=== PATIENT | female | born 1955 | race Caucasian/White ===

== ENCOUNTER 2019-09-29 13:45 | Inpatient (IN) ==
[2019-09-29 14:40] LABS: Appearance Urine Clear (Clear); Bacteria Urine Automated Negative (Negative); Bilirubin Urine Negative (Negative); Blood Urine Negative (Negative); Color Urine Dark Yellow; Epithelial Cell Urine Auto >30 /lpf (0-5); Glucose Urine UA Negative (Negative); Ketones Urine Trace (Negative); Leukocyte Esterase Urine Trace (Negative); Nitrite Urine Negative (Negative); Protein Urine Negative (Negative); RBC Urine Automated 0-4 /hpf (0-4); Specific Gravity Urine 1.022 (1.000-1.030); Urobilinogen Urine Negative (Negative)
[2019-09-29 15:02] LABS: Acetaminophen < 2 ug/ml (10-30); Albumin Level 3.8 gm/dl (3.4-5.0); BUN Creatinine Ratio 13.5 (10-20); Calcium 9.4 mg/dl (8.5-10.1); Est GFR (African American) 67.7; Est GFR (Non-African American) 58.4; Potassium 4.1 mmol/L (3.5-5.1); Salicylate < 1.7 mg/dl (2.8-20)
[2019-09-29 15:05] LABS: Amphetamines+Metham, Urine Neg (Neg); Barbiturates, Urine Neg (Neg); Benzodiazepine, Urine Neg (Neg); Cocaine, Urine Neg (Neg); MDMA (Ecstacy), Urine Pos (Neg); Methadone, Urine Neg (Neg); Opiate, Urine Neg (Neg); Phencyclidine, Urine Neg (Neg)
[2019-09-29 15:13] LABS: Albumin Globulin Ratio 1.2 (0.9-2); Bilirubin,Total 0.6 mg/dl (0.2-1); Globulin 3.1 gm/dl (2.5-4.0); Thyroid Stimulating Hormone 1.69 uIu/ml (0.300-4.500); Total Protein 6.9 gm/dl (6.4-8.2)
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
[2019-09-29 16:31] LABS: Hematocrit (blood only) 37.5 % (37-47); Hemoglobin 12.8 g/dL (12.0-16.0); Lymphocytes # (auto) 0.78 K/uL (1.2-3.4); Mean Corpuscular Hemoglobin 30.5 pg (25-34); Mean Corpuscular Hgb Conc 34.1 g/dL (32-36); Mean Corpuscular Volume 89.5 fL (80-100); Mean Platelet Volume 9.9 fL (7.4-10.4); Monocytes # (auto) 0.17 K/uL (0.11-0.59); Monocytes % (auto) 6.5 %; Neutrophils # (auto) 1.65 K/uL (1.4-6.5); Neutrophils % (auto) 63.5 %; Platelet Count 177 K/uL (130-400); RDW Coefficient of Variation 12.9 % (11.5-14.5); Red Blood Count 4.19 M/uL (4.2-5.4)
[2019-09-29 19:34] VITALS: O2SAT 100
[2019-09-29] MEDS ORDERED: ALUMINUM/MAGNESIUM SUSP 30 ML UDC PO PRN (19:47)
[2019-09-29] MEDS ORDERED: BISMUTH SUBSALICYLATE PER ML OMNICELL CHARGE PO PRN (19:47)
[2019-09-29] MEDS ORDERED: ACETAMINOPHEN 325 MG TAB PO PRN (19:47)
[2019-09-29] MEDS ORDERED: MAGNESIUM HYDROXIDE SUSP 30 ML UDC PO PRN (19:47)
[2019-09-29] MEDS ORDERED: SODIUM CHLORIDE 0.65% NA SOLN 45 ML (OCEAN) PRN (19:47)
[2019-09-29] MEDS ORDERED: SENNA 8.6 MG TAB PO PRN (19:50)
[2019-09-29] MEDS: LORazepam 1 MG TAB PO SCH (21:05)
[2019-09-29] MEDS: DOCUSATE SODIUM 100 MG CAP PO SCH (21:05)
[2019-09-29] MEDS: TRAZODONE HCL 50 MG TAB PO SCH (21:06)
[2019-09-29] MEDS: LITHIUM CARBONATE 300 MG TAB PO SCH (21:06)
[2019-09-29] MEDS: PERPHENAZINE 2 MG TABLET PO SCH (21:06)
[2019-09-30] MEDS: DOCUSATE SODIUM 100 MG CAP PO SCH ×2 (09:41→20:51)
[2019-09-30] MEDS: PERPHENAZINE 2 MG TABLET PO SCH ×2 (09:41→20:47)
[2019-09-30] MEDS: LORazepam 1 MG TAB PO SCH ×3 (09:41→20:46)
[2019-09-30] MEDS: CHOLECALCIFEROL 1,000 UNITS TAB PO SCH (09:41)
[2019-09-30] MEDS: VITAMIN B COMPLEX TAB PO SCH (09:42)
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
[2019-09-30] MEDS: LITHIUM CARBONATE 300 MG TAB PO SCH (20:47)
[2019-09-30] MEDS: TRAZODONE HCL 50 MG TAB PO SCH (20:47)
[2019-10-01] MEDS: PERPHENAZINE 2 MG TABLET PO SCH ×2 (09:31→20:54)
[2019-10-01] MEDS: DOCUSATE SODIUM 100 MG CAP PO SCH ×2 (09:31→20:53)
[2019-10-01] MEDS: CHOLECALCIFEROL 1,000 UNITS TAB PO SCH (09:31)
[2019-10-01] MEDS: VITAMIN B COMPLEX TAB PO SCH (09:31)
[2019-10-01] MEDS: LORazepam 1 MG TAB PO SCH ×3 (09:32→20:53)
--- NOTE | 2019-10-01 13:47 | Psychiatric Progress Note ---
Date of Service October 01, 2019 Impression / Recommendations Impression 64-year-old female personal nursing home resident who has a history of chronic paranoid schizophrenia and presents with worsening psychosis in the context of multiple antipsychotic medication changes due to leukocytopenia. She is a limited historian and cannot describe recent medication changes, so we will need to get that information from the [facility] psych clinic. She is endorsing florid psychosis with delusions of persecution, auditory and visual hallucinations, paranoia, and fear that unknown others are trying to kill her. Since she was here last, lithium has been added, Lorazepam resumed and the dose increased, trazodone increased, and paliperidone discontinued. Green[place] is reportedly being utilized to combat atypical antipsychotic induced leukocytopenia. Patient's paranoia and delusions are ongoing, lithium will be titrated to 450 mg nightly in preparation for adjustments to antipsychotic medications/dosing. We will begin by titrating perphenazine to 16 mg twice daily, with consideration to augment with either olanzapine or paliperidone if symptoms do not improve. Inpatient treatment is medically necessary due to the severity of her psychotic symptoms and inability to function outside of the hospital as a result. (1) Chronic paranoid schizophrenia: 09/30 -continue current antipsychotic for now (perphenazine 12 mg every morning and 16 mg at bedtime) while getting information from her outpatient [employer] at the [facility] psych clinic regarding recent medication changes/side effects/symptoms. -Reportedly did well on perphenazine but had problems with ? leukocytopenia, and at some point saw a training and development professional -request those records and consider need for inpatient consult. -Continue home dose of lithium (trough level 0.4 today), Lorazepam 1 mg 3 times daily, hydroxyzine 25 mg 3 times daily, and trazodone 150 mg at bedtime. -Encourage patient to attend and participate in groups and therapy. -Coordinate care with [facility] staff and [facility] and involve them in treatment and discharge planning. 10/01 - After review of risks and benefits, patient is agreeable with titration fo perphenazine to 16mg BID - consider eventual need to return to augmenting agent (history shows favorable response to paliperidone and olanzapine - but both with concerns for leukocytopenia in the past) - Greeneville titrated to 450mg qHS - as means to combat neutropenia - see below - Awaiting training and development professional records - Encourage continued participation in group and recreational therapies (2) Leukocytopenia: 09/30 - WBC 2.6 and ANC 1.65 on admission. In 07/2019, ANC was is low at 0.85, and WBC 1.85. Get records from outpatient psychiatrist and training and development professional to clarify recent medication changes and thoughts regarding etiology. -Patient with 2 known previous episodes of leukocytopenia, thought to be caused by antipsychotic medication (Haldol and 2011 and olanzapine here in 2018). 10/01 - After review with patient's outpatient psychiatric prescriber, it appears lithium was being utilized as an adjunctive medication with thoughts it may counteract atypical antipsychotic-induced neutropenia - Several review articles found to support this theory, though most were directed toward clozapine-induced neutropenia specifically. - Basic explanation of this idea was provided to patient, who was agreeable with titration of lithium to 450mg qHS (lower dose adjustment as patient reported perceived fogginess since addition of lithium). Reference articles: - Jenyn Molina., Sunita Wolfe., Sharifa Serrano., Anmol SGood, & Barbara Contreras (2016). Continuing clozapine treatment with lithium in schizophrenic patients with neutropenia or leukopenia: brief review of literature with case reports. Therapeutic advances in psychopharmacology, 6(1), 3333. doi:10.1177/1195031900018361 - Zoey Robin., Jason Unger., Terrence Narayanan., Adam Rivera., Terrence Castrejon., Lucia Maloney., Gokristopher, N. (2009). Adjunctive use of lithium carbonate for the management of neutropenia in clozapine-treated children. Human psychopharmacology, 24(0), 896570. doi:10.1002/hup.1056 Inventory Assets Strengths: Willing for treatment, has outpatient providers Needs: Antipsychotic medication that she can tolerate, coordination with training and development professional given recent side effect issues Risk Factors Assessment Male: No : Yes Do You Have Access To A Gun?: No Health Problems: Yes Mental Health Diagnoses: Yes Substance Use Disorders: No Previous Attempt: Yes Previous Psychiatric Hospitalization: Yes Smoker: No Protective Factors Assessment Jain Beliefs: No : No Responsible for Young Children: No Employed: No Stable Relationships: No Supportive Family: No Interval History Identifying Information KIM DOWLING is a 64-year-old F who currently lives in [facility] home, has a history of schizophrenia, and was admitted on 09/29/19 19:21 on a 201 voluntary commitment for psychosis with delusions and paranoia. Chief Complaint "I'm feeling pretty good. About the same as yesterday." Review of Systems Notes Constitutional: reports feeling "foggy" Cardiovascular: denied Respiratory: denied Gastrointestinal: denied Neurological: denied Psychiatric: denies symptoms other than stated above Total of at least 10 systems reviewed, pertinent positives as above and in HPI. Sleep Information Total Hours of Sleep: 6.5 Meal Information Percent Meal Consumed - Breakfast: 100 Percent Meal Consumed - Lunch: 100 Percent Meal Consumed - Dinner: 100 Subjective Subjective Patient was seen & assessed and interval progress reviewed with nursing and social work. Staff reports the patient appeared more isolative and paranoid last evening. Contact was made with [facility], and circulation sales representative states patient is permitted to return to the facility after discharge. Patient had a meeting with her case making machine operator yesterday. Patient was seen today to assess progress since admission. She states that she is feeling "pretty good" and "about the same as yesterday, so not bad." Despite her cheerful disposition, patient admits that she is somewhat concerned today. She states that she overheard "two men talking outside my room. One said 'you are going to penitentiary for life, you better stay out of your room if you want to leave'. Just from hearing this, I assumed one of the gunmen from [facility] was brought here. Patient was asked her thoughts on how this could happen, and stated "I do not know. It has been a wild week at [facility]." Patient then shares with this provider that she is not particularly fond of her housemates, stating "she is mean and just rude. But she is a delight and so kind." During review of medication recommendations, patient inquires about this provider's interpretation of her thought process. She states, "because I am not mentally ill. I do not think it is me." She states that prior psychiatric admissions are related to "things I was getting off of the television. But I do not even watch that stuff anymore." Patient denies any safety concerns regarding discharge to [facility], and denies concerns surrounding hospitalization on this unit. She does, however, continue to endorse suspicion of multiple male patients admitted after her. Patient denies suicidal ideation, and other needs or concerns presently. Physical Exam Psychiatric Orientation: alert, oriented x 3 and cooperative (And pleasant) Apperance: appropriately dressed (Odd, but semi-formal dress. Wearing long skirt over pants.), appropriately groomed and appeared stated age Eye Contact: good eye contact Motor Behavior: steady gait and station and no abnormal motor movements Speech: normal rate/rhythm/volume of speech Affect: euthymic affect (Calm, but bright. Smiling appropriately) and mood co ngruent with affect Mood: no depressed mood ("Pretty good. About the same as yesterday.") Thought Process: + perseveration; + thought process not linear or logical Thought Content: + preoccupation (With perceived threats to safety outside of hospital), + paranoid and + delusions (Now believing a fellow patient was "one of the gunmen"); no hopelessness Suicidal Thoughts: denies suicidal thoughts and denies suicidal intent Homicidal Thoughts: denies homicidal thoughts Hallucinations: no auditory hallucinations and no visual hallucinations Cognition: attention grossly intact and language grossly intact Insight: + impaired insight Judgement: + impaired judgement Vital Signs (Past 24 Hours) Last Vital Signs Temp 36.5 C 10/01/19 06:55 Pulse 66 10/01/19 06:56 Resp 16 10/01/19 06:55 BP 121/82 10/01/19 06:56 Pulse Ox 100 09/29/19 19:33 Results & Data Current Inpatient Medications Current Inpatient Medications: Current Inpatient Medications Acetaminophen (Tylenol) 650 mg PO Q4H PRN PRN Reason: Headache or Minor Fever Stop: 10/29/19 19:46 Al Hydrox/Mg Hydrox/Simethicone (Maalox) 30 ml PO Q4H PRN PRN Reason: GI Upset Stop: 10/29/19 19:46 Bismuth Subsalicylate (Kaopectate) 15 ml PO PRN PRN PRN Reason: Loose Stool Stop: 10/29/19 19:46 Docusate Sodium (Colace) 100 mg PO BID [facility] Stop: 10/29/19 20:59 Last Admin: 10/01/19 09:31 Dose: 100 mg Documented by: Hydroxyzine HCl (Vistaril) 25 mg PO TID [facility] Stop: 10/29/19 20:59 Last Admin: 10/01/19 13:32 Dose: 25 mg Documented by: Greeneville Carbonate ([place] Carbonate) 300 mg PO [facility] Stop: 10/29/19 21:59 Last Admin: 09/30/19 20:47 Dose: 300 mg Documented by: Lorazepam (Ativan) 1 mg PO TID [facility] Stop: 10/29/19 20:59 Last Admin: 10/01/19 13:32 Dose: 1 mg Documented by: Magnesium Hydroxide (Milk Of Magnesia) 30 ml PO DAILY PRN PRN Reason: Constipation Stop: 10/29/19 19:46 Perphenazine (Trilafon) 16 mg PO [facility] Stop: 10/29/19 21:59 Last Admin: 09/30/19 20:47 Dose: 16 mg Documented by: Perphenazine (Trilafon) 12 mg PO DAILY [facility] Stop: 10/30/19 08:59 Last Admin: 10/01/19 09:31 Dose: 12 mg Documented by: Sennosides (Senokot) 8.6 mg PO BID PRN PRN Reason: Constipation Stop: 10/29/19 20:59 Sodium Chloride ([place] Nasal) 1 - 2 sprays NA PRN PRN PRN Reason: Nasal Dryness/Congestion Stop: 10/29/19 19:46 Trazodone HCl (Desyrel) 150 mg PO [facility] Stop: 10/29/19 21:59 Last Admin: 09/30/19 20:47 Dose: 150 mg Documented by: Vitamin B Complex (Vitamin B Complex) [facility] [place]: 10/30/19 08:59 Last Admin: 10/01/19 09:31 Dose: 1 tab Documented by: Vitamin D (Vitamin D3) 1,000 [facility] Stop: 10/30/19 08:59 Last Admin: 10/01/19 09:31 Dose: 1,000 units Documented by: Mental Health & Subst Abuse Tx Therapist Name of Therapist: none Air Compressor Operator Name of Air Compressor Operator: Cheri Zuniga Post Discharge Appointments Primary Care Physician Name Of Family Doctor: Dr. Gonzalez
[2019-10-01] MEDS: TRAZODONE HCL 50 MG TAB PO SCH (20:54)
[2019-10-01] MEDS: LITHIUM CARBONATE 300 MG TAB PO SCH (20:56)
[2019-10-02] MEDS: DOCUSATE SODIUM 100 MG CAP PO SCH ×2 (10:12→21:00)
[2019-10-02] MEDS: PERPHENAZINE 2 MG TABLET PO SCH ×2 (10:12→21:01)
[2019-10-02] MEDS: LORazepam 1 MG TAB PO SCH ×3 (10:12→21:00)
[2019-10-02] MEDS: VITAMIN B COMPLEX TAB PO SCH (10:13)
[2019-10-02] MEDS: CHOLECALCIFEROL 1,000 UNITS TAB PO SCH (10:13)
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
[2019-10-02] MEDS: TRAZODONE HCL 50 MG TAB PO SCH (21:01)
[2019-10-02] MEDS: LITHIUM CARBONATE 300 MG TAB PO SCH (21:02)
[2019-10-03 08:19] LABS: Hematocrit (blood only) 34.7 % (37-47); Hemoglobin 11.8 g/dL (12.0-16.0); Mean Corpuscular Hemoglobin 30.3 pg (25-34); Mean Corpuscular Volume 89.2 fL (80-100); Mean Platelet Volume 8.9 fL (7.4-10.4); Platelet Count 146 K/uL (130-400); RDW Coefficient of Variation 12.7 % (11.5-14.5); RDW Standard Deviation 41.1 fL (36.4-46.3); Red Blood Count 3.89 M/uL (4.2-5.4); White Blood Count 1.97 K/uL (4.8-10.8)
[2019-10-03 08:41] LABS: Lymphocytes # (auto) 0.98 K/uL (1.2-3.4); Lymphocytes % (auto) 49.7 %; Monocytes # (auto) 0.17 K/uL (0.11-0.59); Monocytes % (auto) 8.6 %; Neutrophils # (auto) 0.82 K/uL (1.4-6.5); Neutrophils % (auto) 41.7 %
[2019-10-03] MEDS: LORazepam 1 MG TAB PO SCH ×3 (09:13→21:29)
[2019-10-03] MEDS: PERPHENAZINE 2 MG TABLET PO SCH ×2 (09:13→21:29)
[2019-10-03] MEDS: CHOLECALCIFEROL 1,000 UNITS TAB PO SCH (09:14)
[2019-10-03] MEDS: VITAMIN B COMPLEX TAB PO SCH (09:14)
[2019-10-03] MEDS: DOCUSATE SODIUM 100 MG CAP PO SCH ×2 (09:14→21:29)
--- NOTE | 2019-10-03 12:15 | Psychiatric Progress Note ---
Date of Service October 03, 2019 Impression / Recommendations Impression 64-year-old female personal [place] [facility] resident who has a history of chronic paranoid schizophrenia and presents with worsening psychosis in the context of multiple antipsychotic medication changes due to leukocytopenia. (1) Chronic paranoid schizophrenia: 09/30 -continue current antipsychotic for now (perphenazine 12 mg every morning and 16 mg at bedtime) while getting information from her outpatient SURVEY ENGINEER at the [facility] psych clinic regarding recent medication changes/side effects/symptoms. -Reportedly did well on perphenazine but had problems with ? leukocytopenia, and at some point saw a movie actor -request those records and consider need for inpatient consult. -Continue home dose of lithium (trough level 0.4 today), Lorazepam 1 mg 3 times daily, hydroxyzine 25 mg 3 times daily, and trazodone 150 mg at bedtime. -Encourage patient to attend and participate in groups and therapy. -Coordinate care with [facility] staff and M and involve them in treatment and discharge planning. 10/01 - After review of risks and benefits, patient is agreeable with titration fo perphenazine to 16mg BID - consider eventual need to return to augmenting agent (history shows favorable response to paliperidone and olanzapine - but both with concerns for leukocytopenia in the past) - [place] titrated to 450mg qHS - as means to combat neutropenia - see below - Awaiting movie actor records - Encourage continued participation in group and recreational therapies 10/02 -The patient continues to harbor poorly systematized delusional beliefs, primarily of paranoid content. For example, today she tells me that we are part of a "secret" world war that we dare not discussed. She continues to believe that her her residential facility ([facility]) may be trying to "put one over on [her]" and she is not sure that it is a safe place to live. She goes through a list of places where she has lived recently and identifies each of them as being a place where she is disinclined to feel safe. -We discussed what "paranoid" means and I tried to help her understand that it is likely that she will periodically have feelings of not being safe in various locations and that she it is not reasonable for her to expect to change community housing based solely on a sense that she is not safe. The patient said that she understood this and tends to agree. -Patient appears to be tolerating lithium carbonate 450 mg at bedtime. We will recheck her lithium level and her CBC with differential in the morning. Patient's most recent lithium level was 0.4. -Because of the leukopenia we are disinclined to rechallenge the patient with an atypical antipsychotic medication at the present time. However, the plan is to eventually restart either olanzapine or Invega, as indicated by laboratory data and her response to current treatment. -Patient notes that she has improved to the degree that her mood is "good" and she has not experienced any perceptual disturbances ("voices" and "visions") since arriving on the behavioral health unit. -The plan is to continue perphenazine 16 mg at bedtime, in combination with lithium carbonate as above. Material risks and anticipated benefits of both medications were reviewed with the patient today and she indicated understanding. 10/03 lithium level 0.6, drop in absolute neutrophil count since last draw but lower previously. (2) Leukocytopenia: 09/30 - WBC 2.6 and ANC 1.65 on admission. In 07/2019, ANC was is low at 0.85, and WBC 1.85. Get records from outpatient psychiatrist and movie actor to clarify recent medication changes and thoughts regarding etiology. -Patient with 2 known previous episodes of leukocytopenia, thought to be caused by antipsychotic medication (Haldol and 2011 and olanzapine here in 2018). 10/01 - After review with patient's outpatient psychiatric prescriber, it appears lithium was being utilized as an adjunctive medication with thoughts it may c ounteract atypical antipsychotic-induced neutropenia - Several review articles found to support this theory, though most were directed toward clozapine-induced neutropenia specifically. - Basic explanation of this idea was provided to patient, who was agreeable with titration of lithium to 450mg qHS (lower dose adjustment as patient reported perceived fogginess since addition of lithium). 10/02 -We will recheck the patient's CBC with differential in the morning. No current evidence of any infectious process, despite her leukopenia. Reference articles: - Yodit Molina, Sunita Wolfe., Zach S., Anmol S., & Barbara Contreras (2016). Continuing clozapine treatment with lithium in schizophrenic patients with neutropenia or leukopenia: brief review of literature with case reports. Therapeutic advances in psychopharmacology, 6(1), 7507. doi:10.1177/[id number] - Kimberly Robin, Jason Unger., Terrence Narayanan., Adam Rivera., Terrence Castrejon., Lucia Maloney., Erick Castillo (2009). Adjunctive use of lithium carbonate for the management of neutropenia in clozapine-treated children. Human psychopharmacology, 24(6), 450794. doi:10.1002/hup.1056 Inventory Assets Strengths: Willing for treatment, has outpatient providers Needs: Antipsychotic medication that she can tolerate, coordination with movie actor given recent side effect issues Risk Factors Assessment Male: No : Yes Do You Have Access To A Gun?: No Health Problems: Yes Mental Health Diagnoses: Yes Substance Use Disorders: No Previous Attempt: Yes Previous Psychiatric Hospitalization: Yes Smoker: No Protective Factors Assessment Buddhist Beliefs: No : No Responsible for Young Children: No Employed: No Stable Relationships: No Supportive Family: No Interval History Identifying Information KIM DOWLING is a 64-year-old F who currently lives in [facility], has a history of schizophrenia, and was admitted on 09/29/19 19:21 on a 201 voluntary commitment for psychosis with delusions and paranoia. Chief Complaint "I'm OK". Review of Systems Sleep Information Total Hours of Sleep: 8.75 Sleep Comments: awake at around midnight-came out to the day area after being awakened by a sound. she thought she heard something like a gunshot but it was a sound her roommate made getting ready for bed. ate some crackeres then back to bed/sleep. Meal Information Percent Meal Consumed - Breakfast: 100 Percent Meal Consumed - Lunch: 100 Percent Meal Consumed - Dinner: 100 Subjective Subjective Patient was seen & assessed and interval progress reviewed with nursing and social work. reviewed am labs with patient, she is aware of issues with fluctuating neutrophil count. Tolerating lithium. Remains paranoid here, mainly about other patients from [facility] being at the hospital. Physical Exam Psychiatric Orientation: alert Apperance: appropriately groomed Eye Contact: + fair eye contact Motor Behavior: no abnormal motor movements Speech: normal rate/rhythm/volume of speech Affect: + elated affect Mood: + dysphoric mood Thought Process: + concrete thought process Thought Content: + preoccupation and + delusions Suicidal Thoughts: denies suicidal thoughts Homicidal Thoughts: denies homicidal thoughts Hallucinations: no auditory hallucinations and no visual hallucinations Cognition: language grossly intact; + attention not intact Estimated Intelligence: consistent with education level Insight: + impaired insight Judgement: + impaired judgement Vital Signs (Past 24 Hours) Last Vital Signs Temp 36.7 C 10/03/19 06:32 Pulse 61 10/03/19 06:33 Resp 18 10/03/19 06:32 BP 91/59 L 10/03/19 06:33 Pulse Ox 100 09/29/19 19:33 Results & Data Laboratory Results Laboratory Results - last 24 hr 10/03/19 10/03/19 08:08 08:08 WBC 1.97 L RBC 3.89 L Hgb 11.8 L Hct 34.7 L MCV 89.2 MCH 30.3 MCHC 34.0 RDW Std Deviation 41.1 RDW Coeff of Nayeli 12.7 Plt Count 146 MPV 8.9 Immature Gran % (Auto) 0.0 Neut % (Auto) 41.7 Lymph % (Auto) 49.7 [place] % (Auto) 8.6 Eos % (Auto) 0.0 Baso % (Auto) 0.0 Immature Gran # (Auto) 0.00 Neut # (Auto) 0.82 L* Lymph # (Auto) 0.98 L [place] # (Auto) 0.17 Eos # (Auto) 0.00 Baso # (Auto) 0.00 [place] 0.6 Current Inpatient Medications Current Inpatient Medications: Current Inpatient Medications Acetaminophen (Tylenol) 650 mg PO Q4H PRN PRN Reason: Headache or Minor Fever Stop: 10/29/19 19:46 Al Hydrox/Mg Hydrox/Simethicone (Maalox) 30 ml PO Q4H PRN PRN Reason: GI Upset Stop: 10/29/19 19:46 Bismuth Subsalicylate (Kaopectate) 15 ml PO PRN PRN PRN Reason: Loose Stool Stop: 10/29/19 19:46 Docusate Sodium (Colace) 100 mg PO BID [facility] Stop: 10/29/19 20:59 Last Admin: 10/03/19 09:14 Dose: 100 mg Documented by: Hydroxyzine HCl (Vistaril) 25 mg PO TID [facility] Stop: 10/29/19 20:59 Last Admin: 10/03/19 09:14 Dose: 25 mg Documented by: [place] Carbonate ([place] Carbonate) 450 mg PO HS [facility] Stop: 10/31/19 21:59 Last Admin: 10/02/19 21:02 Dose: 450 mg Documented by: Lorazepam (Ativan) 1 mg PO TID [place] Stop: 10/29/19 20:59 Last Admin: 10/03/19 09:13 Dose: 1 mg Documented by: Magnesium Hydroxide (Milk Of Magnesia) 30 ml PO DAILY PRN PRN Reason: Constipation Stop: 10/29/19 19:46 Perphenazine (Trilafon) 16 mg PO BID [place] Stop: 10/31/19 20:59 Last Admin: 10/03/19 09:13 Dose: 16 mg Documented by: Sennosides (Senokot) 8.6 mg PO BID PRN PRN Reason: Constipation Stop: 10/29/19 20:59 Last Admin: 10/01/19 18:15 Dose: 8.6 mg Documented by: Sodium Chloride ([place] Nasal) 1 - 2 sprays NA PRN PRN PRN Reason: Nasal Dryness/Congestion Stop: 10/29/19 19:46 Trazodone HCl (Desyrel) 150 mg PO HS [facility] Stop: 10/29/19 21:59 Last Admin: 10/02/19 21:01 Dose: 150 mg Documented by: Vitamin B Complex (Vitamin B Complex) 1 tab PO QAM [facility] Stop: 10/30/19 08:59 Last Admin: 10/03/19 09:14 Dose: 1 tab Documented by: Vitamin D (Vitamin D3) 1,000 units PO QAM [facility] Stop: 10/30/19 08:59 Last Admin: 10/03/19 09:14 Dose: 1,000 units Documented by: Mental Health & Subst Abuse Tx Psychiatrist Name of Psychiatrist: [facility] - Dr. Carmen Waters Psychiatrist's Psychiatric Appointment Comment: [address], [address], [place] [address] Therapist Name of Therapist: none Therapist Release of Information: Signed Sous Chef Name of Sous Chef: COURTNEY Zuniga Phone Number for Sous Chef: [phone] Case Management Appointment Comment: [address] [facility], [address], [place] Post Discharge Appointments Primary Care Physician Name Of Family Doctor: Sarah Drummond Primary Care Provider Appointment Comment: [address] [facility], [place] [address] Home Health Services Home Health Agency: [facility] Phone Number of Home Services Agency: [phone] Contact Information Discharge Discharge Address: [address] [place], [place] [address] [address] Contact Information Comment: [facility]
[2019-10-03] MEDS: TRAZODONE HCL 50 MG TAB PO SCH (21:29)
[2019-10-03] MEDS: LITHIUM CARBONATE 300 MG TAB PO SCH (21:30)
[2019-10-04 06:27] LABS: Hematocrit (blood only) 35.2 % (37-47); Hemoglobin 11.8 g/dL (12.0-16.0); Mean Corpuscular Hemoglobin 29.7 pg (25-34); Mean Corpuscular Hgb Conc 33.5 g/dL (32-36); Mean Corpuscular Volume 88.7 fL (80-100); Mean Platelet Volume 9.7 fL (7.4-10.4); Platelet Count 146 K/uL (130-400); RDW Coefficient of Variation 12.9 % (11.5-14.5); Red Blood Count 3.97 M/uL (4.2-5.4); White Blood Count 2.08 K/uL (4.8-10.8)
[2019-10-04 07:27] LABS: Lymphocytes % (auto) 52.9 %; Monocytes % (auto) 9.6 %; Neutrophils # (auto) 0.78 K/uL (1.4-6.5); Neutrophils % (auto) 37.5 %
[2019-10-04] MEDS: CHOLECALCIFEROL 1,000 UNITS TAB PO SCH (09:20)
[2019-10-04] MEDS: DOCUSATE SODIUM 100 MG CAP PO SCH ×2 (09:20→21:09)
[2019-10-04] MEDS: VITAMIN B COMPLEX TAB PO SCH (09:20)
[2019-10-04] MEDS: LORazepam 1 MG TAB PO SCH ×3 (09:20→21:09)
--- NOTE | 2019-10-04 12:56 | Psychiatric Progress Note ---
Date of Service October 04, 2019 Impression / Recommendations Impression 64-year-old female personal long-term resident who has a history of chronic paranoid schizophrenia and presents with worsening psychosis in the context of multiple antipsychotic medication changes due to leukocytopenia. (1) Chronic paranoid schizophrenia: 09/30 -continue current antipsychotic for now (perphenazine 12 mg every morning and 16 mg at bedtime) while getting information from her outpatient MANAGER FAST FOOD at the [facility] psych clinic regarding recent medication changes/side effects/symptoms. -Reportedly did well on perphenazine but had problems with ? leukocytopenia, and at some point saw a sprinkler worker -request those records and consider need for inpatient consult. -Continue home dose of lithium (trough level 0.4 today), Lorazepam 1 mg 3 times daily, hydroxyzine 25 mg 3 times daily, and trazodone 150 mg at bedtime. -Encourage patient to attend and participate in groups and therapy. -Coordinate care with [facility] staff and M and involve them in treatment and discharge planning. 10/01 - After review of risks and benefits, patient is agreeable with titration fo perphenazine to 16mg BID - consider eventual need to return to augmenting agent (history shows favorable response to paliperidone and olanzapine - but both with concerns for leukocytopenia in the past) - [place] titrated to 450mg qHS - as means to combat neutropenia - see below - Awaiting sprinkler worker records - Encourage continued participation in group and recreational therapies 10/02 -The patient continues to harbor poorly systematized delusional beliefs, primarily of paranoid content. For example, today she tells me that we are part of a "secret" world war that we dare not discussed. She continues to believe that her her residential facility ([facility]) may be trying to "put one over on [her]" and she is not sure that it is a safe place to live. She goes through a list of places where she has lived recently and identifies each of them as being a place where she is disinclined to feel safe. -We discussed what "paranoid" means and I tried to help her understand that it is likely that she will periodically have feelings of not being safe in various locations and that she it is not reasonable for her to expect to change community housing based solely on a sense that she is not safe. The patient said that she understood this and tends to agree. -Patient appears to be tolerating lithium carbonate 450 mg at bedtime. We will recheck her lithium level and her CBC with differential in the morning. Patient's most recent lithium level was 0.4. -Because of the leukopenia we are disinclined to rechallenge the patient with an atypical antipsychotic medication at the present time. However, the plan is to eventually restart either olanzapine or Invega, as indicated by laboratory data and her response to current treatment. -Patient notes that she has improved to the degree that her mood is "good" and she has not experienced any perceptual disturbances ("voices" and "visions") since arriving on the behavioral health unit. -The plan is to continue perphenazine 16 mg at bedtime, in combination with lithium carbonate as above. Material risks and anticipated benefits of both medications were reviewed with the patient today and she indicated understanding. 10/03 lithium level 0.6, drop in absolute neutrophil count since last draw but lower previously. (2) Leukocytopenia: 09/30 - WBC 2.6 and ANC 1.65 on admission. In 07/2019, ANC was is low at 0.85, and WBC 1.85. Get records from outpatient psychiatrist and sprinkler worker to clarify recent medication changes and thoughts regarding etiology. -Patient with 2 known previous episodes of leukocytopenia, thought to be caused by antipsychotic medication (Haldol and 2011 and olanzapine here in 2018). 10/01 - After review with patient's outpatient psychiatric prescriber, it appears lithium was being utilized as an adjunctive medication with thoughts it may c ounteract atypical antipsychotic-induced neutropenia - Several review articles found to support this theory, though most were directed toward clozapine-induced neutropenia specifically. - Basic explanation of this idea was provided to patient, who was agreeable with titration of lithium to 450mg qHS (lower dose adjustment as patient reported perceived fogginess since addition of lithium). 10/02 -We will recheck the patient's CBC with differential in the morning. No current evidence of any infectious process, despite her leukopenia. 10/04 --CBC yesterday and today are both similar and consistent with lab draws in August. Chronic issue, previously attributed to paliperidone but clearly not resolving on trilafon. Trilafon packing labelling states should be held <1000 but she is already quite decompensated and not clear alternative. Will ask primary attending for second opinion, no records from outpatient hematology available today. Reference articles: - Yodit Molina, Sunita Wolfe., Tulio Serrano, Tulio Corea, & Barbara Contreras (2016). Continuing clozapine treatment with lithium in schizophrenic patients with neutropenia or leukopenia: brief review of literature with case reports. Therapeutic advances in psychopharmacology, 6(1), 5949. doi:10.1177/[id number] - Kimberly Robin, Olga Unger, Tiffany Narayanan, Scarlett Rivera, Tiffany Castrejon, Lucia Maloney., Noemi Castillo. (2009). Adjunctive use of lithium carbonate for the management of neutropenia in clozapine-treated children. Human psychopharmacology, 24(5), 328889. doi:10.1002/hup.1056 Inventory Assets Strengths: Willing for treatment, has outpatient providers Needs: Antipsychotic medication that she can tolerate, coordination with sprinkler worker given recent side effect issues Risk Factors Assessment Male: No : Yes Do You Have Access To A Gun?: No Health Problems: Yes Mental Health Diagnoses: Yes Substance Use Disorders: No Previous Attempt: Yes Previous Psychiatric Hospitalization: Yes Smoker: No Protective Factors Assessment Episcopalian Beliefs: No : No Responsible for Young Children: No Employed: No Stable Relationships: No Supportive Family: No Interval History Identifying Information KIM DOWLING is a 64-year-old F who currently lives in [facility], has a history of schizophrenia, and was admitted on 09/29/19 19:21 on a 201 voluntary commitment for psychosis with delusions and paranoia. Chief Complaint some increase in paranoia Review of Systems Sleep Information Total Hours of Sleep: 6 Sleep Comments: awake at around midnight-came out to the day area after being aw akened by a sound. she thought she heard something like a gunshot but it was a sound her roommate made getting ready for bed. ate some crackeres then back to bed/sleep. Meal Information Percent Meal Consumed - Breakfast: 100 Percent Meal Consumed - Lunch: 100 Percent Meal Consumed - Dinner: 100 Subjective Subjective remains superficially bright in interactions, no significant thought blocking but expressed concerns last night that her days are number, worried that someone is going to blast her head off and that [employer] students are rioting because they don't like her. She was placed on MNPR due to critically low neutrophils but staff confirmed with admin that no additional precautions necessary as asymptomatic. Confirmed with patient no mouth sores. She states today that she doesn't remember any of that "stuff" form last night. Physical Exam Psychiatric A+Ox3, euthymic affect Apperance: + disheveled Eye Contact: + fair eye contact Motor Behavior: no abnormal motor movements Speech: no pressured speech Mood: + anxious mood Thought Process: + concrete thought process Thought Content: + delusions Suicidal Thoughts: denies suicidal thoughts Homicidal Thoughts: denies homicidal thoughts Hallucinations: no auditory hallucinations and no visual hallucinations Cognition: language grossly intact Estimated Intelligence: consistent with education level Insight: + limited insight Judgement: + limited judgement Vital Signs (Past 24 Hours) Last Vital Signs Temp 36.4 C L 10/04/19 06:40 Pulse 57 L 10/04/19 06:41 Resp 18 10/04/19 06:40 BP 114/69 10/04/19 06:41 Pulse Ox 100 09/29/19 19:33 Results & Data Laboratory Results Laboratory Results - last 24 hr 10/04/19 06:03 WBC 2.08 L RBC 3.97 L Hgb 11.8 L Hct 35.2 L MCV 88.7 MCH 29.7 MCHC 33.5 RDW Std Deviation 42.0 RDW Coeff of [place]ayeli 12.9 Plt Count 146 MPV 9.7 Immature Gran % (Auto) 0.0 Neut % (Auto) 37.5 Lymph % (Auto) 52.9 [place] % (Auto) 9.6 Eos % (Auto) 0.0 Baso % (Auto) 0.0 Immature Gran # (Auto) 0.00 Neut # (Auto) 0.78 L* Lymph # (Auto) 1.10 L [place] # (Auto) 0.20 Eos # (Auto) 0.00 Baso # (Auto) 0.00 Current Inpatient Medications Current Inpatient Medications: Current Inpatient Medications Acetaminophen (Tylenol) 650 mg PO Q4H PRN PRN Reason: Headache or Minor Fever Stop: 10/29/19 19:46 Al Hydrox/Mg Hydrox/Simethicone (Maalox) 30 ml PO Q4H PRN PRN Reason: GI Upset Stop: 10/29/19 19:46 Bismuth Subsalicylate (Kaopectate) 15 ml PO PRN PRN PRN Reason: Loose Stool Stop: 10/29/19 19:46 Docusate Sodium (Colace) 100 mg PO BID [facility] Stop: 10/29/19 20:59 Last Admin: 10/04/19 09:20 Dose: 100 mg Documented by: Hydroxyzine HCl (Vistaril) 25 mg PO TID [facility] Stop: 10/29/19 20:59 Last Admin: 10/04/19 09:20 Dose: 25 mg Documented by: [place] Carbonate ([place] Carbonate) 450 mg PO [facility] Stop: 10/31/19 21:59 Last Admin: 10/03/19 21:30 Dose: 450 mg Documented by: Lorazepam (Ativan) 1 mg PO TID [facility] Stop: 10/29/19 20:59 Last Admin: 10/04/19 09:20 Dose: 1 mg Documented by: Magnesium Hydroxide (Milk Of Magnesia) 30 ml PO DAILY PRN PRN Reason: Constipation Stop: 10/29/19 19:46 Perphenazine (Trilafon) 16 mg PO BID [facility] Stop: 10/31/19 20:59 Last Admin: 10/03/19 21:29 Dose: 16 mg Documented by: Sennosides (Senokot) 8.6 mg PO BID PRN PRN Reason: Constipation Stop: 10/29/19 20:59 Last Admin: 10/01/19 18:15 Dose: 8.6 mg Documented by: Sodium Chloride ([place] Nasal) 1 - 2 sprays NA PRN PRN PRN Reason: Nasal Dryness/Congestion Stop: 10/29/19 19:46 Trazodone HCl (Desyrel) 150 mg PO [facility] Stop: 10/29/19 21:59 Last Admin: 10/03/19 21:29 Dose: 150 mg Documented by: Vitamin B Complex (Vitamin B Complex) [facility] Stop: 10/30/19 08:59 Last Admin: 10/04/19 09:20 Dose: 1 tab Documented by: Vitamin D (Vitamin D3) 1,000 units PO QAM [facility] Stop: 10/30/19 08:59 Last Admin: 10/04/19 09:20 Dose: 1,000 units Documented by: Mental Health & Subst Abuse Tx Psychiatrist Name of Psychiatrist: [facility] - Dr. Carmen Waters Psychiatrist's Psychiatric Appointment Comment: [address], [address], [place] [address] Therapist Name of Therapist: none Therapist Release of Information: Signed Community Health Advocate Name of Community Health Advocate: COURTNEY Zuniga Phone Number for Community Health Advocate: [phone] Case Management Appointment Comment: [address], [address], [place] Post Discharge Appointments Primary Care Physician Name Of Family Doctor: Sarah - Dr. Drummond Primary Care Provider Appointment Comment: [address], [place] [address] Home Health Services Home Health Agency: [facility] Phone Number of Home Services Agency: [phone] Contact Information Discharge Discharge Address: [address] [facility] [place] [address] Contact Information Comment: [facility]
[2019-10-04] MEDS: TRAZODONE HCL 50 MG TAB PO SCH (21:10)
[2019-10-04] MEDS: LITHIUM CARBONATE 300 MG TAB PO SCH (21:10)
[2019-10-05] MEDS: CHOLECALCIFEROL 1,000 UNITS TAB PO SCH (08:49)
[2019-10-05] MEDS: VITAMIN B COMPLEX TAB PO SCH (08:49)
[2019-10-05] MEDS: DOCUSATE SODIUM 100 MG CAP PO SCH ×2 (08:49→20:45)
[2019-10-05] MEDS: LORazepam 1 MG TAB PO SCH ×3 (08:50→20:45)
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
[2019-10-05] MEDS: LITHIUM CARBONATE 300 MG TAB PO SCH (20:46)
[2019-10-05] MEDS: TRAZODONE HCL 50 MG TAB PO SCH (20:46)
[2019-10-06] MEDS: DOCUSATE SODIUM 100 MG CAP PO SCH ×2 (08:57→20:42)
[2019-10-06] MEDS: VITAMIN B COMPLEX TAB PO SCH (08:57)
[2019-10-06] MEDS: LORazepam 1 MG TAB PO SCH ×3 (08:57→20:43)
[2019-10-06] MEDS: CHOLECALCIFEROL 1,000 UNITS TAB PO SCH (08:57)
--- NOTE | 2019-10-06 09:25 | Oncology Consultation ---
Date of Consultation October 06, 2019 Assessment & Plan (1) Leukocytopenia: She has been chronically leukopenic, much of which seems to be attributable to her anti-psychotic therapy. She has been on several different agents and they all seem to cause this issue, suggesting a class effect. I think a workup is reasonable for other potential causes. I would check serologies for HBV, HCV, HIV, and EBV. I also would check an NASIR to screen for autoimmune neutropenia. She has diabetes and could be at risk for fatty liver disease, so I also would check an ultrasound of her liver and spleen. If no other cause can be determined, we will need to have a conversation regarding the risks and benefits of her antipsychotic therapy and options to support her counts. She tells me she has breast cancer, but her account is difficult to follow. I asked her nurse to obtain records of mammograms from [facility]. Present on Admission?: Yes History of Present Illness Reason for Consultation: Neutropenia Attending Physician: Tracy Avilez MD History of Present Illness Ms. Pfeiffer is a 64 year old woman with a history of diabetes and paranoid schizophrenia. By review of her records and discussion with her nurse, she develops severe symptoms of her disease off of antipsychotic therapy. She has had issues with leukocytopenia with antipsychotics, including Haldol in 2011 and Zyprexa in 2018. She is currently taking perphenazine. She was admitted with exacerbation of her psychotic symptoms. Since last Fall, her total WBC count has ranged from 2-3.3K with an ANC of 0.7-2.1. Her absolute lymphocyte count also runs on the low side and is often below normal. This abnormality dates back even further, with low ALCs dating as far back as 1997 based on records. She denied any infectious symptoms today. She denied any mouth ulcers or infections. She denied any cough, shortness of breath, dysuria, or diarrhea. She did report some constipation. She also told me she believes she has breast cancer and has had multiple mammograms at [facility]. Her account of this was difficult to follow, but she told me she had lymph nodes bilaterally that may or may not be enlarging. She denied any bleeding from either breast but says she has pain at different sites in both breasts. Allergies Allergy/AdvReac Type Severity Reaction Status Date / Time No Known Allergies Allergy Verified 09/29/19 16:02 Home Medications Home Medications Medication Instructions Recorded Confirmed Type acetaminophen [Tylenol] 650 mg PO Q6 PRN 12/26/18 09/29/19 History cholecalciferol (vitamin D3) 1,000 unit PO QAM 12/26/18 09/29/19 History [Vitamin D3] dextromethorphan-guaifenesin 1 tab PO Q12H PRN 12/26/18 09/29/19 History [Mucinex DM] docusate sodium 100 mg PO BID 12/26/18 09/29/19 History perphenazine 12 mg PO QAM 12/26/18 09/29/19 History perphenazine 16 mg PO HS 12/26/18 09/29/19 History sennosides [senna] 8.6 mg PO BID PRN 12/26/18 09/29/19 History trazodone 150 mg PO HS 12/26/18 09/29/19 History vitamin B complex 1 tab PO QAM 12/26/18 09/29/19 History lorazepam 1 mg PO TID 03/19/19 09/29/19 History hydroxyzine pamoate 25 mg PO TID 09/29/19 09/29/19 History lithium carbonate 300 mg PO QPM 09/29/19 09/29/19 History calcium carbonate-vitamin D3 600 cap PO DAILY 09/30/19 09/30/19 History [Calcium 600 with Vitamin D3] Patient History Medical History Chronic paranoid schizophrenia (Acute 05/21/11) Diabetes Family History Other Family history non-contributory Social History Preferred Language: Kyrgyz Communication Ability: Effective Visual Impairment: No Limitations Contract Recruiter Required: No Beliefs That Will Affect Care: None marital status: Single Current Living Situation: Personal Care Facility current occupational status: disabled Feels Safe at Home: No Smoking Status: Never smoker Review of Systems Constitutional: + weight loss (intentional 70 lb weight loss over the last year or so); no fever Ear, Nose, Mouth, Throat: no bleeding gums and no sore throat Respiratory: no cough and no dyspnea Cardiovascular: no chest pain Gastrointestinal: + constipation; no nausea and no diarrhea/loose stools Genitourinary: no dysuria Musculoskeletal: She described various joint pains, including her back and knees bilaterally, that are stable Integumentary: no rash Neurologic: no headache(s) Hematologic / Lymphatic: no lymphadenopathy and no night sweats Physical Exam Constitutional: well nourished and comfortable; no acute distress ENMT: external ear and nose normal, oropharynx normal Respiratory: normal respiratory effort, lungs clear to auscultation Cardiovascular: RRR, no murmur, no edema Gastrointestinal (Abdomen): Inspection/Auscultation: normal bowel sounds; abdomen not distended Percussion/Palpation: abdomen soft; abdomen nontender Musculoskeletal: Extremities: extremities normal to inspection Lymphatic: no cervical or axillary lymphadenopathy Results & Data Vital Signs (Past 12 Hours) Vital Signs Temp Pulse Resp BP 10/06/19 06:36 46 L 162/89 H 10/06/19 06:35 36.7 C 48 L 18 151/78 H Laboratory Results I reviewed her labs, which are summarized in the HPI
--- NOTE | 2019-10-06 13:10 | Psychiatric Progress Note ---
Date of Service October 06, 2019 Impression / Recommendations Impression 64-year-old female personal custodial resident who has a history of chronic paranoid schizophrenia and presents with worsening psychosis in the context of multiple antipsychotic medication changes due to leukocytopenia. Continued inpatient psychiatric hospitalization is medically necessary, as patient is currently off antipsychotic medications due to concern for leukocytopenia. This will require further evaluation and ideally restart of an antipsychotic agent. Until that time, patient remains at acute risk of harm to self or others due to persistent delusional beliefs causing her to feel unsafe and paranoia. (1) Chronic paranoid schizophrenia: 09/30 -continue current antipsychotic for now (perphenazine 12 mg every morning and 16 mg at bedtime) while getting information from her outpatient [employer] [facility] at the [facility] psych clinic regarding recent medication changes/side effects/symptoms. -Reportedly did well on perphenazine but had problems with ? leukocytopenia, and at some point saw a golf cart maker -request those records and consider need for inpatient consult. -Continue home dose of lithium (trough level 0.4 today), Lorazepam 1 mg 3 times daily, hydroxyzine 25 mg 3 times daily, and trazodone 150 mg at bedtime. -Encourage patient to attend and participate in groups and therapy. -Coordinate care with [facility] staff and [facility] and involve them in treatment and discharge planning. 10/01 - After review of risks and benefits, patient is agreeable with titration fo perphenazine to 16mg BID - consider eventual need to return to augmenting agent (history shows favorable response to paliperidone and olanzapine - but both with concerns for leukocytopenia in the past) - [place] titrated to 450mg qHS - as means to combat neutropenia - see below - Awaiting golf cart maker records - Encourage continued participation in group and recreational therapies 10/02 -The patient continues to harbor poorly systematized delusional beliefs, primarily of paranoid content. For example, today she tells me that we are part of a "secret" world war that we dare not discussed. She continues to believe that her her residential facility ([facility]) may be trying to "put one over on [her]" and she is not sure that it is a safe place to live. She goes through a list of places where she has lived recently and identifies each of them as being a place where she is disinclined to feel safe. -We discussed what "paranoid" means and I tried to help her understand that it is likely that she will periodically have feelings of not being safe in various locations and that she it is not reasonable for her to expect to change community housing based solely on a sense that she is not safe. The patient said that she understood this and tends to agree. -Patient appears to be tolerating lithium carbonate 450 mg at bedtime. We will recheck her lithium level and her CBC with differential in the morning. Patient's most recent lithium level was 0.4. -Because of the leukopenia we are disinclined to rechallenge the patient with an atypical antipsychotic medication at the present time. However, the plan is to eventually restart either olanzapine or Invega, as indicated by laboratory data and her response to current treatment. -Patient notes that she has improved to the degree that her mood is "good" and she has not experienced any perceptual disturbances ("voices" and "visions") since arriving on the behavioral health unit. -The plan is to continue perphenazine 16 mg at bedtime, in combination with lithium carbonate as above. Material risks and anticipated benefits of both medications were reviewed with the patient today and she indicated understanding. 10/03 lithium level 0.6, drop in absolute neutrophil count since last draw but lower previously. 10/05/19 feel need to continue antipsychotic as she is at risk for severe decompensation, will continue lithium given references provided below by Dr Thompson, and consult hematology for discussion and recommendations 10/06 - Continue to hold Trilafon at this time, though it is desire to resume an antipsychotic agent to prevent decompensation as above - Appreciate hematology recommendations; attempts made to review [id number] about re-start of Trilafon versus initiation of an alternative agent - unable to make connection via phone today - continue lithium as above, consider if further titration would be benficial (2) Leukocytopenia: 09/30 - WBC 2.6 and ANC 1.65 on admission. In 07/2019, ANC was is low at 0.85, and WBC 1.85. Get records from outpatient psychiatrist and golf cart maker to clarify recent medication changes and thoughts regarding etiology. -Patient with 2 known previous episodes of leukocytopenia, thought to be caused by antipsychotic medication (Haldol and 2011 and olanzapine here in 2018). 10/01 - After review with patient's outpatient psychiatric prescriber, it appears lithium was being utilized as an adjunctive medication with thoughts it may counteract atypical antipsychotic-induced neutropenia - Several review articles found to support this theory, though most were directed toward clozapine-induced neutropenia specifically. - Basic explanation of this idea was provided to patient, who was agreeable with titration of lithium to 450mg qHS (lower dose adjustment as patient reported perceived fogginess since addition of lithium). 10/02 -We will recheck the patient's CBC with differential in the morning. No current evidence of any infectious process, despite her leukopenia. 10/04 --CBC yesterday and today are both similar and consistent with lab draws in August. Chronic issue, previously attributed to paliperidone but clearly not resolving on trilafon. Trilafon packing labelling states should be held <1000 but she is already quite decompensated and not clear alternative. Will ask primary attending for second opinion, no records from outpatient hematology available today. Reference articles: - Jenny Molina., Sunita Wolfe., Sharifa Serrano., Anmlo SGood, & Barbara Contreras (2016). Continuing clozapine treatment with lithium in schizophrenic patients with neutropenia or leukopenia: brief review of literature with case reports. Therapeutic advances in psychopharmacology, 6(1), 3337. doi:10.1177/[id number] - Zoey Robin., Jason Unger., Terrence Narayanan., Adam Rivera., Terrence Castrejon., Lucia Maloney., Gokristopher, N. (2009). Adjunctive use of lithium carbonate for the management of neutropenia in clozapine-treated children. Human psychopharmacology, 24(9), 498392. doi:10.1002/hup.1056 10/05 hematology consultation to discuss this catch-22 of treatment as she is at severe risk to self and others if she becomes psychiatrically decompensated and yet all antipsychotics can risk agranulocytosis, further she has limited medications that she does respond to. 10/06 - Appreciate hematology consultation - per recommendations, serologies for HBV, HCV, HIV, EBV, and an NASIR were ordered to rule out possible contributing factors for neutropenia - Suggesting other causes be ruled out, and determine risk/benefit analysis of continuing antipsychotic medications despite persistent leukocytopenia Inventory Assets Strengths: Willing for treatment, has outpatient providers Needs: Antipsychotic medication that she can tolerate, coordination with golf cart maker given recent side effect issues Risk Factors Assessment Male: No : Yes Do You Have Access To A Gun?: No Health Problems: Yes Mental Health Diagnoses: Yes Substance Use Disorders: No Previous Attempt: Yes Previous Psychiatric Hospitalization: Yes Smoker: No Protective Factors Assessment Latter-Day Beliefs: No : No Responsible for Young Children: No Employed: No Stable Relationships: No Supportive Family: No Interval History Identifying Information KIM DOWLING is a 64-year-old F who currently lives in [facility], has a history of schizophrenia, and was admitted on 09/29/19 19:21 on a 201 voluntary commitment for psychosis with delusions and paranoia. Chief Complaint " I am okay. A little sleepy." Review of Systems Notes Constitutional: reports fatigue today Cardiovascular: denied Respiratory: denied Gastrointestinal: denied Neurological: denied Psychiatric: denies symptoms other than stated above Total of at least 10 systems reviewed, pertinent positives as above and in HPI. Sleep Information Total Hours of Sleep: 8 Sleep Comments: pt on q-15 minute checks Meal Information Percent Meal Consumed - Breakfast: 100 Percent Meal Consumed - Lunch: 100 Percent Meal Consumed - Dinner: 100 Subjective Subjective Patient was seen & assessed and interval progress reviewed with nursing and social work. Staff reports patient continues to participate in group programming, episodically reporting delusional thoughts to staff. Trilafon has been held, and hematology consultation is pending. Patient remains in a medically necessary private room to reduce risk of infection. Patient was seen today to assess progress since admission. She states she is feeling "okay, but a little sleepy." Patient participated in a meeting with the front office representative from [facility] - patient's perception of this meeting was "we were talking about where I am going to go when I leave here, they told me I had to find a new place to live." There is no documentation to suggest this was the outcome of the meeting, inpatient was asked if this was directly stated to her. Patient states "we will know, not directly. But it was implied." Patient states she would like to seek a 1 bedroom efficiency apartment for rent. After expressing these desires, the patient abruptly changes conversation to discuss "the terrible things going on." When patient was asked to explain this statement, meka navarro states "while the news is classified, so was not on TV. But I know some of the guys here are involved in it. Even so, I feel safe here." During patient's admission, she is continue to verbalize thoughts that people at [facility] were being held at [facility] prior to her psychiatric admission. Patient denies suicidal ideation, and participated in necessary consent paperwork to proceed with HIV testing, a part of multiple blood tests being recommended by hematology. Patient verbalized understanding of the reasoning for the tests, and consented to the testing. Patient denied other needs or concerns at this time. Physical Exam Psychiatric Orientation: alert and cooperative (and pleasant) Apperance: appropriately dressed (Odd style, but appropriately dressed - wearing mismatched sweater and skirt), + disheveled (hair appearing unkempt) and appeared stated age; + inappropriately groomed (malodorous) Eye Contact: + fair eye contact Motor Behavior: steady gait and station and no abnormal motor movements Speech: normal rate/rhythm/volume of speech (soft, polite tone) Affect: + blunted affect (appearing fatigued) Mood: no depressed mood "I'm ok" Thought Process: + circumstantial thought process (interrupting conversation with thoughts related to delusional system) and + concrete thought process; + thought process not linear or logical (linear, but not logical) Thought Content: + paranoid and + delusions (Incorporating male patients on unit into delusional system) Suicidal Thoughts: denies suicidal thoughts Homicidal Thoughts: denies homicidal thoughts Hallucinations: no auditory hallucinations and no visual hallucinations Patient denies presence of auditory or visual hallucinations Cognition: attention grossly intact and language grossly intact Insight: + impaired insight Judgement: + impaired judgement Vital Signs (Past 24 Hours) Last Vital Signs Temp 36.7 C 10/06/19 06:35 Pulse 46 L 10/06/19 06:36 Resp 18 10/06/19 06:35 BP 162/89 H 10/06/19 06:36 Pulse Ox 100 09/29/19 19:33 Results & Data Current Inpatient Medications Current Inpatient Medications: Current Inpatient Medications Acetaminophen (Tylenol) 650 mg PO Q4H PRN PRN Reason: Headache or Minor Fever Stop: 10/29/19 19:46 Al Hydrox/Mg Hydrox/Simethicone (Maalox) 30 ml PO Q4H PRN PRN Reason: GI Upset Stop: 10/29/19 19:46 Bismuth Subsalicylate (Kaopectate) 15 ml PO PRN PRN PRN Reason: Loose Stool Stop: 10/29/19 19:46 Docusate Sodium (Colace) 100 mg PO BID [facility] Stop: 10/29/19 20:59 Last Admin: 10/06/19 08:57 Dose: 100 mg Documented by: Hydroxyzine HCl (Vistaril) 25 mg PO TID [facility] Stop: 10/29/19 20:59 Last Admin: 10/06/19 08:57 Dose: 25 mg Documented by: [place] Carbonate ([place] Carbonate) 450 mg PO [facility] Stop: 10/31/19 21:59 Last Admin: 10/05/19 20:46 Dose: 450 mg Documented by: Lorazepam (Ativan) 1 mg PO TID [facility] Stop: 10/29/19 20:59 Last Admin: 10/06/19 08:57 Dose: 1 mg Documented by: Magnesium Hydroxide (Milk Of Magnesia) 30 ml PO DAILY PRN PRN Reason: Constipation Stop: 10/29/19 19:46 Perphenazine (Trilafon) 16 mg PO BID [facility] Stop: 10/31/19 20:59 Last Admin: 10/03/19 21:29 Dose: 16 mg Documented by: Sennosides (Senokot) 8.6 mg PO BID PRN PRN Reason: Constipation Stop: 10/29/19 20:59 Last Admin: 10/01/19 18:15 Dose: 8.6 mg Documented by: Sodium Chloride ([place] Nasal) 1 - 2 sprays NA PRN PRN PRN Reason: Nasal Dryness/Congestion Stop: 10/29/19 19:46 Trazodone HCl (Desyrel) 150 mg PO [facility] Stop: 10/29/19 21:59 Last Admin: 10/05/19 20:46 Dose: 150 mg Documented by: Vitamin B Complex (Vitamin B Complex) [facility] Stop: 10/30/19 08:59 Last Admin: 10/06/19 08:57 Dose: 1 tab Documented by: Vitamin D (Vitamin D3) 1,000 units [facility] Stop: 10/30/19 08:59 Last Admin: 10/06/19 08:57 Dose: 1,000 units Documented by: Mental Health & Subst Abuse Tx Psychiatrist Name of Psychiatrist: [facility] - Dr. Carmen Waetrs Psychiatrist's Psychiatric Appointment Comment: [address], [address], [place] [address] Therapist Name of Therapist: none Therapist Release of Information: Signed Forms Designer Name of Forms Designer: COURTNEY Zuniga Phone Number for Forms Designer: [phone] Case Management Appointment Comment: [address], [address], [place] Post Discharge Appointments Primary Care Physician Name Of Family Doctor: Sarah - Dr. Drummond Primary Care Provider Appointment Comment: [address], [place] [address] Home Health Services Home Health Agency: [facility] Phone Number of Home Services Agency: [phone] Contact Information Discharge Discharge Address: [address] [place] [id number] Contact Information Comment: [facility]
[2019-10-06] MEDS: TRAZODONE HCL 50 MG TAB PO SCH (20:43)
[2019-10-06] MEDS: LITHIUM CARBONATE 300 MG TAB PO SCH (20:43)
[2019-10-07 08:58] LABS: Hematocrit (blood only) 37.4 % (37-47); Hemoglobin 13.1 g/dL (12.0-16.0); Lymphocytes # (auto) 0.94 K/uL (1.2-3.4); Mean Corpuscular Hemoglobin 30.7 pg (25-34); Mean Corpuscular Volume 87.6 fL (80-100); Mean Platelet Volume 9.5 fL (7.4-10.4); Monocytes # (auto) 0.15 K/uL (0.11-0.59); Monocytes % (auto) 6.7 %; Neutrophils # (auto) 1.15 K/uL (1.4-6.5); Neutrophils % (auto) 51.3 %; Platelet Count 158 K/uL (130-400); RDW Standard Deviation 41.7 fL (36.4-46.3); Red Blood Count 4.27 M/uL (4.2-5.4); White Blood Count 2.24 K/uL (4.8-10.8)
[2019-10-07] MEDS ORDERED: PERPHENAZINE 2 MG TABLET PO SCH (09:00)
[2019-10-07] MEDS: DOCUSATE SODIUM 100 MG CAP PO SCH ×2 (09:44→20:48)
[2019-10-07] MEDS: LORazepam 1 MG TAB PO SCH ×3 (09:44→20:48)
[2019-10-07] MEDS: CHOLECALCIFEROL 1,000 UNITS TAB PO SCH (09:45)
[2019-10-07] MEDS: VITAMIN B COMPLEX TAB PO SCH (09:45)
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
[2019-10-07] MEDS: PERPHENAZINE 2 MG TABLET PO SCH ×2 (10:01→20:48)
[2019-10-07] MEDS: TRAZODONE HCL 50 MG TAB PO SCH (20:49)
[2019-10-07] MEDS: LITHIUM CARBONATE 300 MG TAB PO SCH (20:49)
[2019-10-08] MEDS: DOCUSATE SODIUM 100 MG CAP PO SCH ×2 (09:03→21:15)
[2019-10-08] MEDS: PERPHENAZINE 2 MG TABLET PO SCH ×2 (09:05→21:15)
[2019-10-08] MEDS: VITAMIN B COMPLEX TAB PO SCH (09:06)
[2019-10-08] MEDS: CHOLECALCIFEROL 1,000 UNITS TAB PO SCH (09:06)
[2019-10-08] MEDS: LORazepam 1 MG TAB PO SCH ×3 (09:08→21:14)
--- NOTE | 2019-10-08 09:52 | Psychiatric Progress Note ---
Date of Service October 08, 2019 Impression / Recommendations Impression 64-year-old female personal skilled nursing resident who has a history of chronic paranoid schizophrenia and presents with worsening psychosis in the context of multiple antipsychotic medication changes due to leukocytopenia. Continued inpatient psychiatric hospitalization is medically necessary, as attempts are being made to coordinate treatment plan with hematology. Plan is to review risk/benefit analysis of treating patients schizophrenia with agents presumed to be inducing leukocytopenia. Appreciate hematology involvement, and there are plans for multidisciplinary review of patient's case tomorrow. Patient has been restarted on titration of perphenazine, last CBC with differential obtained on 10/07/2018. WBC - improved at 2.24; Neutrophils increased from 0.78 to 1.15. Although patient is reporting feeling ready for discharge, staff has noticed significant decompensation and increased reports of delusional thought content. Given patient's significant psychiatric history, there is great concern for risk of harm to self or others if patient is discharged without appropriate medication plan to support overall health and wellness. Inpatient psychiatric treatment remains medically necessary, as patient continues to be at acute risk of harm to self or others due to persistent delusional beliefs causing her to feel unsafe and paranoia. (1) Chronic paranoid schizophrenia: 09/30 -continue current antipsychotic for now (perphenazine 12 mg every morning and 16 mg at bedtime) while getting information from her outpatient [facility] at the [facility] psych clinic regarding recent medication changes/side effects/symptoms. -Reportedly did well on perphenazine but had problems with ? leukocytopenia, and at some point saw a forensic computer examiner -request those records and consider need for inpatient consult. -Continue home dose of lithium (trough level 0.4 today), Lorazepam 1 mg 3 times daily, hydroxyzine 25 mg 3 times daily, and trazodone 150 mg at bedtime. -Encourage patient to attend and participate in groups and therapy. -Coordinate care with [facility] staff and [facility] and involve them in treatment and discharge planning. 10/01 - After review of risks and benefits, patient is agreeable with titration fo perphenazine to 16mg BID - consider eventual need to return to augmenting agent (history shows favorable response to paliperidone and olanzapine - but both with concerns for leukocytopenia in the past) - [employer] titrated to 450mg qHS - as means to combat neutropenia - see below - Awaiting forensic computer examiner records - Encourage continued participation in group and recreational therapies 10/02 -The patient continues to harbor poorly systematized delusional beliefs, primarily of paranoid content. For example, today she tells me that we are part of a "secret" world war that we dare not discussed. She continues to believe that her her residential facility ([facility]) may be trying to "put one over on [her]" and she is not sure that it is a safe place to live. She goes through a list of places where she has lived recently and identifies each of them as being a place where she is disinclined to feel safe. -We discussed what "paranoid" means and I tried to help her understand that it is likely that she will periodically have feelings of not being safe in various locations and that she it is not reasonable for her to expect to change community housing based solely on a sense that she is not safe. The patient said that she understood this and tends to agree. -Patient appears to be tolerating lithium carbonate 450 mg at bedtime. We will recheck her lithium level and her CBC with differential in the morning. Patient's most recent lithium level was 0.4. -Because of the leukopenia we are disinclined to rechallenge the patient with an atypical antipsychotic medication at the present time. However, the plan is to eventually restart either olanzapine or Invega, as indicated by laboratory data and her response to current treatment. -Patient notes that she has improved to the degree that her mood is "good" and she has not experienced any perceptual disturbances ("voices" and "visions") since arriving on the behavioral health unit. -The plan is to continue perphenazine 16 mg at bedtime, in combination with lithium carbonate as above. Material risks and anticipated benefits of both medications were reviewed with the patient today and she indicated understanding. 10/03 lithium level 0.6, drop in absolute neutrophil count since last draw but lower previously. 10/05/19 feel need to continue antipsychotic as she is at risk for severe decompensation, will continue lithium given references provided below, and consult hematology for discussion and recommendations 10/06 - Continue to hold Trilafon at this time, though it is desire to resume an antipsychotic agent to prevent decompensation as above - Appreciate hematology recommendations; attempts made to review [id number] about re-start of Trilafon versus initiation of an alternative agent - unable to make connection via phone today - continue lithium as above, consider if further titration would be benficial 10/07 - due to risk of severe decompensation and evidence that 3 days off perphenazine that psychotic sx are returning, despite risk of neutropenia from same med we will restart with rapid titration of perphenazine (4mg bid today, 8mg bid 10/08, and 12mg po bid 10/09, with likely return to prior higher doses of 12mgAM/16mg/hs over the days after that) as risk of inabiltiy to function at this time outweighs risk of neutropenia but further discussion wt hematology and patient overtime will be needed, but we need to maintain her capacity to the best of our ability to make that judgment as well as safety to self and others, patient was informed of this today and agrees, although again she is superficial unconcerned and pleasant about this 10/08 - Continue perphenazine titration as above - pt to receive 8mg BID today, with titration to 12mg BID tomorrow - Hematology contacted and appreciated ongoing presence in patient's complex case - Will order repeat lithium level for this evening - consider titration of lithium to 600mg tomorrow evening if level is reasonably within limits - Continue to encourage participation in group and recreational programming as tolerated (2) Leukocytopenia: 09/30 - WBC 2.6 and ANC 1.65 on admission. In 07/2019, ANC was is low at 0.85, and WBC 1.85. Get records from outpatient psychiatrist and forensic computer examiner to clarify recent medication changes and thoughts regarding etiology. -Patient with 2 known previous episodes of leukocytopenia, thought to be caused by antipsychotic medication (Haldol and 2011 and olanzapine here in 2018). 10/01 - After review with patient's outpatient psychiatric prescriber, it appears lithium was being utilized as an adjunctive medication with thoughts it may counteract atypical antipsychotic-induced neutropenia - Several review articles found to support this theory, though most were directed toward clozapine-induced neutropenia specifically. - Basic explanation of this idea was provided to patient, who was agreeable with titration of lithium to 450mg qHS (lower dose adjustment as patient reported perceived fogginess since addition of lithium). Reference articles: - Yodit Molina, uSnita Wolfe., Zach S., Anmol S., & Barbara Contreras (2016). Continuing clozapine treatment with lithium in schizophrenic patients with neutropenia or leukopenia: brief review of literature with case reports. Ther apeutic advances in psychopharmacology, 6(1), 9835. doi:10.1177/[id number] - Kimberly Robin, Olga Unger, Tiffany Narayanan, Adam Rivera., Terrence Castrejon., Lucia Maloney., Noemi Castillo. (2009). Adjunctive use of lithium carbonate for the management of neutropenia in clozapine-treated children. Human psychopharmacology, 24(2), 694614. doi:10.1002/hup.1056 10/02 -We will recheck the patient's CBC with differential in the morning. No current evidence of any infectious process, despite her leukopenia. 10/04 --CBC yesterday and today are both similar and consistent with lab draws in August. Chronic issue, previously attributed to paliperidone but clearly not resolving on trilafon. Trilafon packing labelling states should be held <1000 but she is already quite decompensated and not clear alternative. Will ask primary attending for second opinion, no records from outpatient hematology available today. 10/05 hematology consultation to discuss this catch-22 of treatment as she is at severe risk to self and others if she becomes psychiatrically decompensated and yet all antipsychotics can risk agranulocytosis, further she has limited medications that she does respond to. 10/06 and 10/07 - Appreciate hematology consultation - per recommendations, serologies for HBV, HCV, HIV, EBV, and an NASIR were ordered to rule out possible contributing factors for neutropenia - Suggesting other causes be ruled out, and determine risk/benefit analysis of continuing antipsychotic medications despite persistent leukocytopenia 10/08 - Serologies ordered per hematology recommendations - Negative results for Hepatitis C Ab screen and HIV screening. Results are pending for EBV and Hepatitis B screening - Pt was informed of negative screen for HIV on this date, verbalized understanding - Case reviewed via phone with consulting forensic computer examiner. Unclear that injections to stimulate production of WBCs could be considered given suspected antipsychotic-induced leukocytopenia; however, there are significant risks to patient and others if she is not able to receive appropriate treatment for her schizophrenia. - Plan is to discuss treatment options with forensic computer examiner, may need to pursue ethics consultation to assist with risk/benefit analysis of her complicated treatment situation Inventory Assets Strengths: Willing for treatment, has outpatient providers Needs: Antipsychotic medication that she can tolerate, coordination with forensic computer examiner given recent side effect issues Risk Factors Assessment Male: No : Yes Do You Have Access To A Gun?: No Health Problems: Yes Mental Health Diagnoses: Yes Substance Use Disorders: No Previous Attempt: Yes Previous Psychiatric Hospitalization: Yes Smoker: No Protective Factors Assessment [employer]ism Beliefs: No : No Responsible for Young Children: No Employed: No Stable Relationships: No Supportive Family: No Interval History Identifying Information KIM DOWLING is a 64-year-old F who currently lives in [facility], has a history of schizophrenia, and was admitted on 09/29/19 19:21 on a 201 voluntary commitment for psychosis with delusions and paranoia. Chief Complaint "I am fine. I actually think that I am ready to go home." Review of Systems Notes Constitutional: denied Cardiovascular: denied Respiratory: denied Gastrointestinal: denied Neurological: denied Psychiatric: denies symptoms other than stated above Total of at least 10 systems reviewed, pertinent positives as above and in HPI. Sleep Information Total Hours of Sleep: 7.25 Sleep Comments: pt on q-15 minute checks Meal Information Percent Meal Consumed - Breakfast: 100 Percent Meal Consumed - Lunch: 100 Percent Meal Consumed - Dinner: 100 Subjective Subjective Patient was seen & assessed and interval progress reviewed with nursing and social work. Staff reports the patient continues to demonstrate decompensation since her antipsychotic medication was held due to worsening leukocytopenia. Patient was restarted on her antipsychotic medication yesterday, and rapid re- titration is being conducted. The team is reaching out to hematology in order to discuss the patient's case further, and come up with an appropriate treatment plan to support patient's health and wellness. Patient was seen today to assess progress since admission. She states that she is feeling "fine", and even reports to this provider "you know I was thinking, I am ready to go home." When asked what improvements patient perceives have been made, she provides a vague superficial answer of "I am just feeling better." This provider did rev iew available screening results, at this time tests for hepatitis C antibody and HIV screen are negative. Patient initially reported to this provider that her white blood cell count is low because she has HIV. Patient was reminded of our conversation regarding consent for screening, and multiple statements were made today reassuring patient that her test result at this time is negative. Patient seemed comforted by this, and then began telling this provider that she has a blood cancer. When asked why she thought this, patient states "it is all over my chart that I have leukemia." Patient was provided with education on the term "leukocytopenia", and what this means. She was reminded that we are attempting to rule out various causes of this condition, but that leukemia has not been diagnosed. Patient again seemed comforted by this explanation as well. Patient does not verbalize any delusional thought content during our conversation, but has been more isolative, often retreating to her room. She denies suicidal ideation or hopelessness. She denies needs or concerns at this time. Physical Exam Psychiatric Orientation: alert, oriented x 3 and cooperative (Superficially pleasant) Apperance: appropriately dressed, + disheveled and appeared stated age Patient demonstrating decline in grooming over the past several days. Hair appears unkempt. Eye Contact: good eye contact Motor Behavior: no abnormal motor movements (Observed while sitting upright in bed) Speech: normal rate/rhythm/volume of speech Affect: + blunted affect; + mood not congruent with affect Patient appears superficially pleasant and cheerful; however, baseline affect appears blunted and even depressed at times Mood: no depressed mood ("I am fine") Patient reports a positive happy mood, which is inconsistent with underlying affect displayed. Thought Process: goal directed thought process and + concrete thought process Thought Content: + preoccupation, + paranoid and + delusions; no hopelessness Suicidal Thoughts: denies suicidal thoughts Homicidal Thoughts: denies homicidal thoughts Hallucinations: no auditory hallucinations and no visual hallucinations Patient denies auditory and visual hallucinations, though the reliability of this is unclear as she continues to report delusional thought content. Cognition: attention grossly intact and language grossly intact Insight: + impaired insight Judgement: + impaired judgement Vital Signs (Past 24 Hours) Last Vital Signs Temp 36.8 C 10/08/19 06:32 Pulse 66 10/08/19 06:33 Resp 18 10/08/19 06:32 BP 113/76 10/08/19 06:33 Pulse Ox 100 09/29/19 19:33 Results & Data Current Inpatient Medications Current Inpatient Medications: Current Inpatient Medications Acetaminophen (Tylenol) 650 mg PO Q4H PRN PRN Reason: Headache or Minor Fever Stop: 10/29/19 19:46 Al Hydrox/Mg Hydrox/Simethicone (Maalox) 30 ml PO Q4H PRN PRN Reason: GI Upset Stop: 10/29/19 19:46 Bismuth Subsalicylate (Kaopectate) 15 ml PO PRN PRN PRN Reason: Loose Stool Stop: 10/29/19 19:46 Docusate Sodium (Colace) 100 mg PO BID [facility] Stop: 10/29/19 20:59 Last Admin: 10/08/19 09:03 Dose: 100 mg Documented by: Hydroxyzine HCl (Vistaril) 25 mg PO TID [facility] Stop: 10/29/19 20:59 Last Admin: 10/08/19 09:06 Dose: 25 mg Documented by: [employer] Carbonate ([employer] Carbonate) 450 mg PO [facility] Stop: 10/31/19 21:59 Last Admin: 10/07/19 20:49 Dose: 450 mg Documented by: Lorazepam (Ativan) 1 mg PO TID [facility] Stop: 10/29/19 20:59 Last Admin: 10/08/19 09:08 Dose: 1 mg Documented by: Magnesium Hydroxide (Milk Of Magnesia) 30 ml PO DAILY PRN PRN Reason: Constipation Stop: 10/29/19 19:46 Perphenazine (Trilafon) 16 mg PO BID [facility] Stop: 10/31/19 20:59 Last Admin: 10/03/19 21:29 Dose: 16 mg Documented by: Perphenazine (Trilafon) 8 mg PO BID [facility]; Taper Stop: 10/10/19 08:59 Last Admin: 10/08/19 09:05 Dose: 8 mg Documented by: Sennosides (Senokot) 8.6 mg PO BID PRN PRN Reason: Constipation Stop: 10/29/19 20:59 Last Admin: 10/01/19 18:15 Dose: 8.6 mg Documented by: Sodium Chloride (Bono Nasal) 1 - 2 sprays NA PRN PRN PRN Reason: Nasal Dryness/Congestion Stop: 10/29/19 19:46 Trazodone HCl (Desyrel) 150 mg PO [facility] Stop: 10/29/19 21:59 Last Admin: 12/11/19 20:49 Dose: 150 mg Documented by: Vitamin B Complex (Vitamin B Complex) 1 tab PO QAM NIKOLE Stop: 10/30/19 08:59 Last Admin: 10/08/19 09:06 Dose: 1 tab Documented by: Vitamin D (Vitamin D3) 1,000 units PO QAM NIKOLE Stop: 10/30/19 08:59 Last Admin: 10/08/19 09:06 Dose: 1,000 units Documented by: Mental Health & Subst Abuse Tx Psychiatrist Name of Psychiatrist: [facility] - Dr. Carmen Waters Psychiatrist's Psychiatric Appointment Comment: [address], [place] [address] Therapist Name of Therapist: none Therapist Release of Information: Signed Can Cutter Name of Can Cutter: COURTNEY Zuniga Phone Number for Can Cutter: [phone] Case Management Appointment Comment: [address], [address], [place] Discharge Appointments Primary Care Physician Name Of Family Doctor: Sarah Drummond Primary Care Provider Appointment Comment: [address], [place] [address] Home Health Services Home Health Agency: [facility] Phone Number of Home Services Agency: [phone] Contact Information Discharge Discharge Address: [place] [address] Contact Information Comment: [facility]
[2019-10-08] MEDS: TRAZODONE HCL 50 MG TAB PO SCH (21:15)
[2019-10-08] MEDS: LITHIUM CARBONATE 300 MG TAB PO SCH (21:16)
[2019-10-09] MEDS: PERPHENAZINE 2 MG TABLET PO SCH ×2 (09:15→20:55)
[2019-10-09] MEDS: CHOLECALCIFEROL 1,000 UNITS TAB PO SCH (09:15)
[2019-10-09] MEDS: DOCUSATE SODIUM 100 MG CAP PO SCH ×2 (09:15→20:55)
[2019-10-09] MEDS: VITAMIN B COMPLEX TAB PO SCH (09:15)
[2019-10-09] MEDS: LORazepam 1 MG TAB PO SCH ×3 (09:15→20:54)
--- NOTE | 2019-10-09 09:30 | Psychiatric Progress Note ---
Date of Service October 09, 2019 Impression / Recommendations Impression 64-year-old female [facility] resident who has a history of chronic paranoid schizophrenia and presents with worsening psychosis in the context of multiple antipsychotic medication changes due to leukocytopenia. Continued inpatient psychiatric hospitalization is medically necessary, as attempts are being made to coordinate treatment plan with hematology. Plan is to review risk/benefit analysis of treating patients schizophrenia with agents presumed to be inducing leukocytopenia. Appreciate hematology involvement, and there are plans for multidisciplinary review of patient's case tomorrow. Patient has been restarted on titration of perphenazine, last CBC with differential obtained on 10/07/2018. WBC - improved at 2.24; Neutrophils increased from 0.78 to 1.15. Will order every third day CBC's with differential for monitoring. Although patient is reporting feeling ready for discharge, staff has noticed significant decompensation and increased reports of delusional thought content. Given patient's significant psychiatric history, there is great concern for risk of harm to self or others if patient is discharged without appropriate medication plan to support overall health and wellness. Inpatient psychiatric treatment remains medically necessary, as patient continues to be at acute risk of harm to self or others due to persistent delusional beliefs causing her to feel unsafe and paranoia. (1) Chronic paranoid schizophrenia: 09/30 -continue current antipsychotic for now (perphenazine 12 mg every morning and 16 mg at bedtime) while getting information from her outpatient MANAGER DOCUMENTATION at the [facility] psych clinic regarding recent medication changes/side effects/symptoms. -Reportedly did well on perphenazine but had problems with ? leukocytopenia, and at some point saw a veneer stapler -request those records and consider need for inpatient consult. -Continue home dose of lithium (trough level 0.4 today), Lorazepam 1 mg 3 times daily, hydroxyzine 25 mg 3 times daily, and trazodone 150 mg at bedtime. -Encourage patient to attend and participate in groups and therapy. -Coordinate care with [facility] staff and [facility] and involve them in treatment and discharge planning. 10/01 - After review of risks and benefits, patient is agreeable with titration fo perphenazine to 16mg BID - consider eventual need to return to augmenting agent (history shows favorable response to paliperidone and olanzapine - but both with concerns for leukocytopenia in the past) - Hansell titrated to 450mg qHS - as means to combat neutropenia - see below - Awaiting veneer stapler records - Encourage continued participation in group and recreational therapies 10/02 -The patient continues to harbor poorly systematized delusional beliefs, primarily of paranoid content. For example, today she tells me that we are part of a "secret" world war that we dare not discussed. She continues to believe that her her residential facility ([facility]) may be trying to "put one over on [her]" and she is not sure that it is a safe place to live. She goes through a list of places where she has lived recently and identifies each of them as being a place where she is disinclined to feel safe. -We discussed what "paranoid" means and I tried to help her understand that it is likely that she will periodically have feelings of not being safe in various locations and that she it is not reasonable for her to expect to change community housing based solely on a sense that she is not safe. The patient said that she understood this and tends to agree. -Patient appears to be tolerating lithium carbonate 450 mg at bedtime. We will recheck her lithium level and her CBC with differential in the morning. Patient's most recent lithium level was 0.4. -Because of the leukopenia we are disinclined to rechallenge the patient with an atypical antipsychotic medication at the present time. However, the plan is to eventually restart either olanzapine or Invega, as indicated by laboratory data and her response to current treatment. -Patient notes that she has improved to the degree that her mood is "good" and she has not experienced any perceptual disturbances ("voices" and "visions") since arriving on the behavioral health unit. -The plan is to continue perphenazine 16 mg at bedtime, in combination with lithium carbonate as above. Material risks and anticipated benefits of both medications were reviewed with the patient today and she indicated understanding. 10/03 lithium level 0.6, drop in absolute neutrophil count since last draw but lower previously. 10/05/19 feel need to continue antipsychotic as she is at risk for severe decompensation, will continue lithium given references provided below, and consult hematology for discussion and recommendations 10/06 - Continue to hold Trilafon at this time, though it is desire to resume an antipsychotic agent to prevent decompensation as above - Appreciate hematology recommendations; attempts made to review [id number] about re-start of Trilafon versus initiation of an alternative agent - unable to make connection via phone today - continue lithium as above, consider if further titration would be benficial 10/07 - due to risk of severe decompensation and evidence that 3 days off perphenazine that psychotic sx are returning, despite risk of neutropenia from same med we will restart with rapid titration of perphenazine (4mg bid today, 8mg bid 10/08, and 12mg po bid 10/09, with likely return to prior higher doses of 12mgAM/16mg/hs over the days after that) as risk of inabiltiy to function at this time outweighs risk of neutropenia but further discussion wtih hematology and patient overtime will be needed, but we need to maintain her capacity to the best of our ability to make that judgment as well as safety to self and others, patient was informed of this today and agrees, although again she is superficial unconcerned and pleasant about this 10/08 - Continue perphenazine titration as above - pt to receive 8mg BID today, with titration to 12mg BID tomorrow - Hematology contacted and appreciated ongoing presence in patient's complex case - Will order repeat lithium level for this evening - consider titration of lithium to 600mg tomorrow evening if level is reasonably within limits - Continue to encourage participation in group and recreational programming as tolerated 10/09 - Perphenazine titrated to 12mg BID today - dose prior to admission was 12mg qAM and 16mg qHS - With hematology on board, will need determine if it is necessary to retrial augmentation with paliperidone or other antipsychotic medication (as patient historically has not been stabilized on perphenazine alone, and has continued to verbalize delusional thoughts and paranoia on the unit). - Titrating lithium to 600mg this evening; trough level obtained last evening and was 0.6 - Pt continues to be superficially pleasant, with seemingly artificial cheerfulness - but also continues to verbalize delusional thought content to staff periodically (2) Leukocytopenia: 09/30 - WBC 2.6 and ANC 1.65 on admission. In 07/2019, ANC was is low at 0.85, and WBC 1.85. Get records from outpatient psychiatrist and veneer stapler to clarify recent medication changes and thoughts regarding etiology. -Patient with 2 known previous episodes of leukocytopenia, thought to be caused by antipsychotic medication (Haldol and 2011 and olanzapine here in 2018). 10/01 - After review with patient's outpatient psychiatric prescriber, it appears lithium was being utilized as an adjunctive medication with thoughts it may counteract atypical antipsychotic-induced neutropenia - Several review articles found to support this theory, though most were directed toward clozapine-induced neutropenia specifically. - Basic explanation of this idea was provided to patient, who was agreeable with titration of lithium to 450mg qHS (lower dose adjustment as patient reported perceived fogginess since addition of lithium). Reference articles: - Jenny Molina., Sunita Wolfe., Sharifa Serrano., Anmol SGood, & Barbara Contreras (2016). Continuing clozapine treatment with lithium in schizophrenic patients with neutropenia or leukopenia: brief review of literature with case reports. Therapeutic advances in psychopharmacology, 6(1), 3337. doi:10.1177/20 [id number] - Zeoy Robin., Jason Unger., Terrence Narayanan., Adam Rivera., Terrence Castrejon., Lucia Maloney., Noemi Castillo. (2009). Adjunctive use of lithium carbonate for the management of neutropenia in clozapine-treated children. Human psychopharmacology, 24(7), 435646. doi:10.1002/hup.1056 10/02 -We will recheck the patient's CBC with differential in the morning. No current evidence of any infectious process, despite her leukopenia. 10/04 --CBC yesterday and today are both similar and consistent with lab draws in August. Chronic issue, previously attributed to paliperidone but clearly not resolving on trilafon. Trilafon packing labelling states should be held <1000 but she is already quite decompensated and not clear alternative. Will ask primary attending for second opinion, no records from outpatient hematology available today. 10/05 hematology consultation to discuss this catch-22 of treatment as she is at severe risk to self and others if she becomes psychiatrically decompensated and yet all antipsychotics can risk agranulocytosis, further she has limited medications that she does respond to. 10/06 and 10/07 - Appreciate hematology consultation - per recommendations, serologies for HBV, HCV, HIV, EBV, and an NASIR were ordered to rule out possible contributing factors for neutropenia - Suggesting other causes be ruled out, and determine risk/benefit analysis o f continuing antipsychotic medications despite persistent leukocytopenia 10/08 - Serologies ordered per hematology recommendations - Negative results for Hepatitis C Ab screen and HIV screening. Results are pending for EBV and Hepatitis B screening - Pt was informed of negative screen for HIV on this date, verbalized understanding - Case reviewed via phone with consulting veneer stapler. Unclear that injections to stimulate production of WBCs could be considered given suspected antipsychotic-induced leukocytopenia; however, there are significant risks to patient and others if she is not able to receive appropriate treatment for her schizophrenia. - Plan is to discuss treatment options with veneer stapler, may need to pursue ethics consultation to assist with risk/benefit analysis of her complicated treatment situation 10/09 - [id number] Consultation and Discussion with Hematology - Spoke with consulting veneer stapler (Dr. Baumann - covering for Dr. Godoy) regarding patient's complicated situation. He verbalized understanding the patient's quality of life off antipsychotic medications is not ideal, and engaged in discussions regarding possible G-CSF therapy. He kindly offered to pursue prior authorization through his office, and stated he would report back with findings. Information regarding patient's past psychiatric history and need for regular antipsychotic therapy will be offered to further demonstrate need for action to improve white blood cell counts. It was reported a CBC with differential would likely be ordered prior to each injection if G-CSF therapy was pursued. On an inpatient basis, it is recommended that CBC with differential be obtained every 2 to 3 days, and more urgently if patient is reporting any signs or symptoms of infection. Agreed that if G-CSF could not be pursued that patient would likely require an ethics consultation to determine risk/benefit analysis of treating her complicated case. - Information above was explained to patient, who verbalized basic understanding. At this time, she is verbalizing willingness for injections if G-CSF therapy is pursued. She even supported willingness for daily injections if necessary. Of course, patient's willingness may wax and wane based off of her mental health, and will need to be reassessed further. - While G-CSF therapy is being explored, we will continue with titration of lithium based on documented outpatient treatment plan and reference articles listed above. Hansell level was obtained last evening, and was within low- therapeutic range at 0.6. Will titrate lithium to 600mg this evening, and recheck level of 10/14 Inventory Assets Strengths: Willing for treatment, has outpatient providers Needs: Antipsychotic medication that she can tolerate, coordination with veneer stapler given recent side effect issues Risk Factors Assessment Male: No : Yes Do You Have Access To A Gun?: No Health Problems: Yes Mental Health Diagnoses: Yes Substance Use Disorders: No Previous Attempt: Yes Previous Psychiatric Hospitalization: Yes Smoker: No Protective Factors Assessment Moravian Beliefs: No : No Responsible for Young Children: No Employed: No Stable Relationships: No Supportive Family: No Interval History Identifying Information KIM DOWLING is a 64-year-old F who currently lives in [facility], has a history of schizophrenia, and was admitted on 09/29/19 19:21 on a 201 voluntary commitment for psychosis with delusions and paranoia. Chief Complaint "I just feel a little punk this morning." Review of Systems Notes Constitutional: reports fatigue Cardiovascular: denied Respiratory: denied Gastrointestinal: denied Neurological: denied Musculoskeletal: reports back pain Psychiatric: denies symptoms other than stated above Total of at least 10 systems reviewed, pertinent positives as above and in HPI. Sleep Information Total Hours of Sleep: 7.25 Sleep Comments: pt on q-15 minute checks Meal Information Percent Meal Consumed - Breakfast: 100 Percent Meal Consumed - Lunch: 100 Percent Meal Consumed - Dinner: 100 Subjective Subjective Patient was seen & assessed and interval progress reviewed with treatment team. Staff reports the patient continues to verbalize delusional thought content, believing that some of her male peers were involved in various schemes she has encountered. She has reportedly been more isolative and providing less attention to self care. Consulting veneer stapler joined treatment team this morning to provide input on possible therapies to assist with persistent leukocytopenia, presumed to be antipsychotic induced. Plan is to explore prior authorization for G-CSF therapy to aid in protecting both her physical and mental health moving forward. Patient was seen today to assess progress since admission. She was found to be in her room, laying in bed. Patient states that she is feeling "a little punk this morning." When asked what this phrase meant, the patient states "all I do not know, I guess a little under the weather." When asked to explain her symptoms, patient states that she is feeling "tired and my back hurts." She denies symptomatology of a URI, naus ea/vomiting, diarrhea, and other symptoms concerning for infection. She was asked about her decreased attendance in group and recreational therapies, with concern that she may not be feeling safe during these groups. Patient denies this thought, stating instead that "some of the groups are interesting, and some are just boring." Despite several follow-up questions, patient did not verbalize any delusional thought content regarding beliefs that her peers are involved in any delusional schemes. She has, however, reported various delusional statements to staff this morning (stating she is infected with HIV, believing peers have told her this, questioning if a bomb went off last evening and asking about injuries). Reviewed discussion with veneer stapler this morning, and patient verbalized basic understanding. She did state that she would be willing for injections to improve her white blood cell count if that was being recommended. Patient was also agreeable with titration of lithium and attempts to counteract antipsychotic-induced neutropenia. She denies other needs or concerns at this time, and was willing to attend activity group after our conversation was finished. Physical Exam Psychiatric Orientation: alert, oriented to person, oriented to place (place is somewhat encorporated in delusional thought content), oriented to time and cooperative (superficially; artifically cheerful) Pt knows he is in the hospital, but is not oriented to surrounding areas - believing [place] is outside Apperance: appropriately dressed and + disheveled (hair unkempt); + inappropriately groomed pt has been demonstrating decreasing attendance to personal care tasks Eye Contact: + fair eye contact Motor Behavior: no abnormal motor movements (observed while laying in/sitting on bed) Speech: normal rate/rhythm/volume of speech (Primarily brief responses to questions) Affect: + flat affect (At baseline) Patient brightened significantly, and seemingly artificially, when actively engaged in conversation with staff. Mood patient describes herself as "feeling a little punk this morning", which she describes as "under the weather." Thought Process: + perseveration; + thought process not linear or logical (Linear thought process, though not logical) Thought Content: + preoccupation, + paranoid and + delusions (That she has HIV, that a bomb went off last evening, among other concerns) Suicidal Thoughts: denies suicidal thoughts Homicidal Thoughts: denies homicidal thoughts Hallucinations: no auditory hallucinations and no visual hallucinations Cognition: attention grossly intact and language grossly intact Insight: + impaired insight Judgement: + impaired judgement Vital Signs (Past 24 Hours) Last Vital Signs Temp 36.6 C 10/09/19 06:31 Pulse 65 10/09/19 06:32 Resp 18 10/09/19 06:31 BP 95/65 L 10/09/19 06:32 Pulse Ox 100 09/29/19 19:33 Results & Data Laboratory Results Laboratory Results - last 24 hr 10/08/19 19:56 Hansell 0.6 Current Inpatient Medications Current Inpatient Medications: Current Inpatient Medications Acetaminophen (Tylenol) 650 mg PO Q4H PRN PRN Reason: Headache or Minor Fever Stop: 10/29/19 19:46 Al Hydrox/Mg Hydrox/Simethicone (Maalox) 30 ml PO Q4H PRN PRN Reason: GI Upset Stop: 10/29/19 19:46 Bismuth Subsalicylate (Kaopectate) 15 ml PO PRN PRN PRN Reason: Loose Stool Stop: 10/29/19 19:46 Docusate Sodium (Colace) 100 mg PO BID [facility] Stop: 10/29/19 20:59 Last Admin: 10/09/19 09:15 Dose: 100 mg Documented by: Hydroxyzine HCl (Vistaril) 25 mg PO TID [facility] Stop: 10/29/19 20:59 Last Admin: 10/09/19 09:15 Dose: 25 mg Documented by: Hansell Carbonate (Hansell Carbonate) 450 mg PO HS [facility] Stop: 10/31/19 21:59 Last Admin: 10/08/19 21:16 Dose: 450 mg Documented by: Lorazepam (Ativan) 1 mg PO TID [facility] Stop: 10/29/19 20:59 Last Admin: 10/09/19 09:15 Dose: 1 mg Documented by: Magnesium Hydroxide (Milk Of Magnesia) 30 ml PO DAILY PRN PRN Reason: Constipation Stop: 10/29/19 19:46 Perphenazine (Trilafon) 16 mg PO BID [facility] Stop: 10/31/19 20:59 Last Admin: 10/03/19 21:29 Dose: 16 mg Documented by: Perphenazine (Trilafon) 12 mg PO BID [facility]; Taper Stop: 10/10/19 08:59 Last Admin: 10/09/19 09:15 Dose: 12 mg Documented by: Sennosides (Senokot) 8.6 mg PO BID PRN PRN Reason: Constipation Stop: 10/29/19 20:59 Last Admin: 10/01/19 18:15 Dose: 8.6 mg Documented by: Sodium Chloride ([place] Nasal) 1 - 2 sprays NA PRN PRN PRN Reason: Nasal Dryness/Congestion Stop: 10/29/19 19:46 Trazodone HCl (Desyrel) 150 mg PO HS NIKOLE Stop: 10/29/19 21:59 Last Admin: 10/08/19 21:15 Dose: 150 mg Documented by: Vitamin B Complex (Vitamin B Complex) 1 tab PO QAM NIKOLE Stop: 10/30/19 08:59 Last Admin: 10/09/19 09:15 Dose: 1 tab Documented by: Vitamin D (Vitamin D3) 1,000 units PO QAM NIKOLE Stop: 10/30/19 08:59 Last Admin: 10/09/19 09:15 Dose: 1,000 units Documented by: Mental Health & Subst Abuse Tx Psychiatrist Name of Psychiatrist: [facility] - Dr. Carmen Waters Psychiatrist's Psychiatric Appointment Comment: [address], [place] [address] Therapist Name of Therapist: none Therapist Release of Information: Signed Paper Wrapping Machine Operator Name of Paper Wrapping Machine Operator: COURTNEY Zuniga Phone Number for Paper Wrapping Machine Operator: [phone] Case Management Appointment Comment: [address], [address], [place] Post Discharge Appointments Primary Care Physician Name Of Family Doctor: Sarah Drummond Primary Care Provider Appointment Comment: [address], [place] [address] Home Health Services Home Health Agency: [facility] Phone Number of Home Services Agency: [phone] Contact Information Discharge Discharge Address: [address] [place] [address] Contact Information Comment: [facility]
[2019-10-09] MEDS: LITHIUM CARBONATE 300 MG TAB PO SCH (20:55)
[2019-10-09] MEDS: TRAZODONE HCL 50 MG TAB PO SCH (20:56)
[2019-10-10 07:33] LABS: Hematocrit (blood only) 34.5 % (37-47); Hemoglobin 11.7 g/dL (12.0-16.0); Lymphocytes # (auto) 0.93 K/uL (1.2-3.4); Lymphocytes % (auto) 42.9 %; Mean Corpuscular Hemoglobin 30.2 pg (25-34); Mean Corpuscular Hgb Conc 33.9 g/dL (32-36); Mean Corpuscular Volume 89.1 fL (80-100); Mean Platelet Volume 9.1 fL (7.4-10.4); Monocytes # (auto) 0.17 K/uL (0.11-0.59); Monocytes % (auto) 7.8 %; Neutrophils # (auto) 1.07 K/uL (1.4-6.5); Neutrophils % (auto) 49.3 %; Platelet Count 137 K/uL (130-400); Red Blood Count 3.87 M/uL (4.2-5.4); White Blood Count 2.17 K/uL (4.8-10.8)
[2019-10-10] MEDS: LORazepam 1 MG TAB PO SCH ×3 (08:42→20:47)
[2019-10-10] MEDS: CHOLECALCIFEROL 1,000 UNITS TAB PO SCH (08:42)
[2019-10-10] MEDS: VITAMIN B COMPLEX TAB PO SCH (08:42)
[2019-10-10] MEDS: DOCUSATE SODIUM 100 MG CAP PO SCH ×2 (08:42→20:47)
--- NOTE | 2019-10-10 09:49 | Psychiatric Progress Note ---
Date of Service October 10, 2019 Impression / Recommendations Impression 64-year-old female personal prison resident who has a history of chronic paranoid schizophrenia and presents with worsening psychosis in the context of multiple antipsychotic medication changes due to leukocytopenia. Continued inpatient psychiatric hospitalization is medically necessary, as attempts are being made to coordinate treatment plan with hematology. Plan is to review risk/benefit analysis of treating patients schizophrenia with agents presumed to be inducing leukocytopenia. Appreciate hematology involvement, and there are plans for multidisciplinary review of patient's case tomorrow. Patient has been restarted on titration of perphenazine, last CBC with differential obtained on 10/07/2018. WBC - improved at 2.24; Neutrophils increased from 0.78 to 1.15. Will order every third day CBC's with differential for monitoring. Although patient is reporting feeling ready for discharge, staff has noticed significant decompensation and increased reports of delusional thought content. Given patient's significant psychiatric history, there is great concern for risk of harm to self or others if patient is discharged without appropriate medication plan to support overall health and wellness. FUrthermore now that there is a concerted hematology support alongside reinitation of her Antipsychotic, outaptient housing and f/u will need to be established. Although she is beginning to improve she continues to have residual sx, will monitor and determine weather further titration of perphenazine is needed back to prior doses. Inpatient psychiatric treatment remains medically necessary, as patient continues to be at acute risk of harm to self or others due to persistent delusional beliefs causing her to feel unsafe and paranoia. Inventory Assets Strengths: Willing for treatment, has outpatient providers Needs: Antipsychotic medication that she can tolerate, coordination with head of marketing adometry given recent side effect issues Risk Factors Assessment Male: No : Yes Do You Have Access To A Gun?: No Health Problems: Yes Mental Health Diagnoses: Yes Substance Use Disorders: No Previous Attempt: Yes Previous Psychiatric Hospitalization: Yes Smoker: No Protective Factors Assessment Christianity Beliefs: No : No Responsible for Young Children: No Employed: No Stable Relationships: No Supportive Family: No Interval History Identifying Information KIM DOWLING is a 64-year-old F who currently lives in [facility], has a history of schizophrenia, and was admitted on 09/29/19 19:21 on a 201 voluntary commitment for psychosis with delusions and paranoia. Chief Complaint "I think it is okay". Review of Systems Sleep Information Total Hours of Sleep: 8.5 Sleep Comments: pt on q-15 minute checks Meal Information Percent Meal Consumed - Breakfast: 100 Percent Meal Consumed - Lunch: 100 Percent Meal Consumed - Dinner: 100 Subjective Subjective Patient was seen & assessed and interval progress reviewed with treatment team Patient has met with head of marketing adometry who also met with the team provider recommendations for patient's treatment dilema of needing to be on Antipsychotic to function, but also having low white count. She is reported as being superficially pleasant but in the last 2 days showing sx of decompensation of delusions, paranoia, and irritability to staff at times. Today met patient she was dressing herself and appropriately asked staff to wait while she finished, and came out in hospital scrub pants and a sweater, hair is combed. She denies AVH, at this time, she denies any paranoia, she does ask if there indeed was an explosion in the hospital killing people in the last 2 days noting "I may be wrong but I beleive that happened." She seems to accept provider's clarification and reassurance this is not the case. She denies SE to the perphenazine titration, and denies SE to lithium increase (yesterday was first 600mg dose) no tremor, no GI upset, no EPS, TD or dystonia. She denies other physical concerns today on ROS. Physical Exam Vital Signs (Past 24 Hours) Last Vital Signs Temp 36.5 C 10/10/19 06:34 Pulse 69 10/10/19 06:35 Resp 20 10/10/19 06:34 BP 114/75 10/10/19 06:35 Pulse Ox 100 09/29/19 19:33 Results & Data Laboratory Results Laboratory Results - last 24 hr 10/10/19 07:20 WBC 2.17 L RBC 3.87 L Hgb 11.7 L Hct 34.5 L MCV 89.1 MCH 30.2 MCHC 33.9 RDW Std Deviation 42.0 RDW Coeff of Nayeli 13.0 Plt Count 137 MPV 9.1 Immature Gran % (Auto) 0.0 Neut % (Auto) 49.3 Lymph % (Auto) 42.9 [place] % (Auto) 7.8 Eos % (Auto) 0.0 Baso % (Auto) 0.0 Immature Gran # (Auto) 0.00 Neut # (Auto) 1.07 L Lymph # (Auto) 0.93 L [place] # (Auto) 0.17 Eos # (Auto) 0.00 Baso # (Auto) 0.00 Current Inpatient Medications Current Inpatient Medications: Current Inpatient Medications Acetaminophen (Tylenol) 650 mg PO Q4H PRN PRN Reason: Headache or Minor Fever Stop: 10/29/19 19:46 Al Hydrox/Mg Hydrox/Simethicone (Maalox) 30 ml PO Q4H PRN PRN Reason: GI Upset Stop: 10/29/19 19:46 Bismuth Subsalicylate (Kaopectate) 15 ml PO PRN PRN PRN Reason: Loose Stool Stop: 10/29/19 19:46 Docusate Sodium (Colace) 100 mg PO BID [facility] Stop: 10/29/19 20:59 Last Admin: 10/10/19 08:42 Dose: 100 mg Documented by: Hydroxyzine HCl (Vistaril) 25 mg PO TID [facility] Stop: 10/29/19 20:59 Last Admin: 10/10/19 08:42 Dose: 25 mg Documented by: Bladen Carbonate (Bladen Carbonate) 600 mg PO [facility] Stop: 11/08/19 21:59 Last Admin: 10/09/19 20:55 Dose: 600 mg Documented by: Lorazepam (Ativan) 1 mg PO TID [facility] Stop: 10/29/19 20:59 Last Admin: 10/10/19 08:42 Dose: 1 mg Documented by: Magnesium Hydroxide (Milk Of Magnesia) 30 ml PO DAILY PRN PRN Reason: Constipation Stop: 10/29/19 19:46 Perphenazine (Trilafon) 16 mg PO BID [facility] Stop: 10/31/19 20:59 Last Admin: 10/03/19 21:29 Dose: 16 mg Documented by: Sennosides (Senokot) 8.6 mg PO BID PRN PRN Reason: Constipation Stop: 10/29/19 20:59 Last Admin: 10/01/19 18:15 Dose: 8.6 mg Documented by: Sodium Chloride ([place]i Nasal) 1 - 2 sprays NA PRN PRN PRN Reason: Nasal Dryness/Congestion Stop: 10/29/19 19:46 Trazodone HCl (Desyrel) 150 mg PO [facility] Stop: 01/02/20 21:59 Last Admin: 10/09/19 20:56 Dose: 150 mg Documented by: Vitamin B Complex (Vitamin B Complex) 1 tab PO QAM [place]KO[place] Stop: 10/30/19 08:59 Last Admin: 10/10/19 08:42 Dose: 1 tab Documented by: Vitamin D (Vitamin D3) 1,000 units PO QAM [place]KO[place] Stop: 10/30/19 08:59 Last Admin: 10/10/19 08:42 Dose: 1,000 units Documented by: Mental Health & Subst Abuse Tx Psychiatrist Name of Psychiatrist: [facility] - Dr. Carmen Waters Psychiatrist's Psychiatric Appointment Comment: [facility], [address], [place] [address] Therapist Name of Therapist: none Therapist Release of Information: Signed Pecan Picker Name of Pecan Picker: COURTNEY Zuniga Phone Number for Pecan Picker: [phone] Case Management Appointment Comment: [address], [address], [place] Post Discharge Appointments Primary Care Physician Name Of Family Doctor: Sarah Drummond Primary Care Provider Appointment Comment: [address], [place] [address] Home Health Services Home Health Agency: [facility] Phone Number of Home Services Agency: [phone] Contact Information Discharge Discharge Address: [address] [place] [address] Contact Information Comment: [facility]
[2019-10-10] MEDS: LITHIUM CARBONATE 300 MG TAB PO SCH (20:47)
[2019-10-10] MEDS: TRAZODONE HCL 50 MG TAB PO SCH (20:48)
[2019-10-11 06:53] LABS: Anti Nuclear Antibody Screen POSITIVE (NEGATIVE); Hepatitis BE Antibody Nonreactive
--- NOTE | 2019-10-11 07:07 | Psychiatric Progress Note ---
Date of Service October 11, 2019 Impression / Recommendations Impression 64-year-old female personal fdc resident who has a history of chronic paranoid schizophrenia and presents with worsening psychosis in the context of multiple antipsychotic medication changes due to leukocytopenia. Continued inpatient psychiatric hospitalization is medically necessary, as attempts are being made to coordinate treatment plan with hematology. Plan is to review risk/benefit analysis of treating patient's schizophrenia with agents presumed to be inducing leukocytopenia. Patient has been restarted on titration of perphenazine, last CBC with differential obtained on 10/07/2018. WBC - improved at 2.24; Neutrophils increased from 0.78 to 1.15. Will order every third day CBC's with differential for monitoring. In the context of holding her antipsychotic medication, she became more delusional. Given patient's significant psychiatric history, there is concern for risk of harm to self or others if patient is discharged without appropriate medication plan to support overall health and wellness. Inpatient psychiatric treatment remains medically necessary, as patient continues to be at acute risk of harm to self or others due to persistent delusional beliefs causing her to feel unsafe and paranoia. (1) Chronic paranoid schizophrenia: 09/30 -continue current antipsychotic for now (perphenazine 12 mg every morning and 16 mg at bedtime) while getting information from her outpatient WORKERS COMP[employer]ATION CLAIMS SUPERVISOR at the [facility] psych clinic regarding recent medication changes/side effects/symptoms. -Reportedly did well on perphenazine but had problems with ? leukocytopenia, and at some point saw a modeling director -request those records and consider need for inpatient consult. -Continue home dose of lithium (trough level 0.4 today), Lorazepam 1 mg 3 times daily, hydroxyzine 25 mg 3 times daily, and trazodone 150 mg at bedtime. -Encourage patient to attend and participate in groups and therapy. -Coordinate care with [facility] staff and [facility] and involve them in treatment and discharge planning. 10/01 - After review of risks and benefits, patient is agreeable with titration fo perphenazine to 16mg BID - consider eventual need to return to augmenting agent (history shows favorable response to paliperidone and olanzapine - but both with concerns for leukocytopenia in the past) - Athens titrated to 450mg qHS - as means to combat neutropenia - see below - Awaiting modeling director records - Encourage continued participation in group and recreational therapies 10/02 -The patient continues to harbor poorly systematized delusional beliefs, primarily of paranoid content. For example, today she tells me that we are part of a "secret" world war that we dare not discussed. She continues to believe that her her residential facility ([facility]) may be trying to "put one over on [her]" and she is not sure that it is a safe place to live. She goes through a list of places where she has lived recently and identifies each of them as being a place where she is disinclined to feel safe. -We discussed what "paranoid" means and I tried to help her understand that it is likely that she will periodically have feelings of not being safe in various locations and that she it is not reasonable for her to expect to change community housing based solely on a sense that she is not safe. The patient said that she understood this and tends to agree. -Patient appears to be tolerating lithium carbonate 450 mg at bedtime. We will recheck her lithium level and her CBC with differential in the morning. Patient's most recent lithium level was 0.4. -Because of the leukopenia we are disinclined to rechallenge the patient with an atypical antipsychotic medication at the present time. However, the plan is to eventually restart either olanzapine or Invega, as indicated by laboratory data and her response to current treatment. -Patient notes that she has improved to the degree that her mood is "good" and she has not experienced any perceptual disturbances ("voices" and "visions") since arriving on the behavioral health unit. -The plan is to continue perphenazine 16 mg at bedtime, in combination with lithium carbonate as above. Material risks and anticipated benefits of both medications were reviewed with the patient today and she indicated understanding. 10/03 lithium level 0.6, drop in absolute neutrophil count since last draw but lower previously. 10/05/19 feel need to continue antipsychotic as she is at risk for severe decompensation, will continue lithium given references provided below, and consult hematology for discussion and recommendations 10/06 - Continue to hold Trilafon at this time, though it is desire to resume an antipsychotic agent to prevent decompensation as above - Appreciate hematology recommendations; attempts made to review [id number] about re-start of Trilafon versus initiation of an alternative agent - unable to make connection via phone today - continue lithium as above, consider if further titration would be benficial 10/07 - due to risk of severe decompensation and evidence that 3 days off perphenazine that psychotic sx are returning, despite risk of neutropenia from same med we will restart with rapid titration of perphenazine (4mg bid today, 8mg bid 10/08, and 12mg po bid 10/09, with likely return to prior higher doses of 12mgAM/16mg/hs over the days after that) as risk of inabiltiy to function at this time outweighs risk of neutropenia but further discussion wtih hematology and patient overtime will be needed, but we need to maintain her capacity to the best of our ability to make that judgment as well as safety to self and others, patient was informed of this today and agrees, although again she is superficial unconcerned and pleasant about this 10/08 - Continue perphenazine titration as above - pt to receive 8mg BID today, with titration to 12mg BID tomorrow - Hematology contacted and appreciated ongoing presence in patient's complex case - Will order repeat lithium level for this evening - consider titration of lithium to 600mg tomorrow evening if level is reasonably within limits - Continue to encourage participation in group and recreational programming as tolerated 10/09 - Perphenazine titrated to 12mg BID today - dose prior to admission was 12mg qAM and 16mg qHS - With hematology on board, will need determine if it is necessary to retrial augmentation with paliperidone or other antipsychotic medication (as patient historically has not been stabilized on perphenazine alone, and has continued to verbalize delusional thoughts and paranoia on the unit). - Titrating lithium to 600mg this evening; trough level obtained last evening and was 0.6 - Pt continues to be superficially pleasant, with seemingly artificial cheerfulness - but also continues to verbalize delusional thought content to staff periodically 10/11 -Perphenazine was held yesterday, but will be resumed today at 12 mg twice daily. Recheck CBC with differential on 10/13/2019. (2) Leukocytopenia: 09/30 - WBC 2.6 and ANC 1.65 on admission. In 07/2019, ANC was is low at 0.85, and WBC 1.85. Get records from outpatient psychiatrist and modeling director to clarify recent medication changes and thoughts regarding etiology. -Patient with 2 known previous episodes of leukocytopenia, thought to be caused by antipsychotic medication (Haldol and 2011 and olanzapine here in 2018). 10/01 - After review with patient's outpatient psychiatric prescriber, it appears lithium was being utilized as an adjunctive medication with thoughts it may counteract atypical antipsychotic-induced neutropenia - Several review articles found to support this theory, though most were directed toward clozapine-induced neutropenia specifically. - Basic explanation of this idea was provided to patient, who was agreeable with titration of lithium to 450mg qHS (lower dose adjustment as patient reported perceived fogginess since addition of lithium). Reference articles: - Jenny Molina., Sunita Wolfe., Sharifa Serrano., Anmol S., & Barbara Contreras (2016). Continuing clozapine treatment with lithium in schizophrenic patients with neutropenia or leukopenia: brief review of literature with case reports. Therapeutic advances in psychopharmacology, 6(1), 3336. doi:10.1177/0283139794098878 - Zoey Robin., Jason Unger., Terrence Narayanan., Adam Rivera., Terrence Castrejon., Lucia Maloney., Noemi Castillo. (2009). Adjunctive use of lithium carbonate for the management of neutropenia in clozapine-treated children. Human psychopharmacology, 24(7), 819831. doi:10.1002/hup.1056 10/02 -We will recheck the patient's CBC with differential in the morning. No current evidence of any infectious process, despite her leukopenia. 10/04 --CBC yesterday and today are both similar and consistent with lab draws in August. Chronic issue, previously attributed to paliperidone but clearly not resolving on trilafon. Trilafon packing labelling states should be held <1000 but she is already quite decompensated and not clear alternative. Will ask primary attending for second opinion, no records from outpatient hematology available today. 10/05 hematology consultation to discuss this catch-22 of treatment as she is at severe risk to self and others if she becomes psychiatrically decompensated and yet all antipsychotics can risk agranulocytosis, further she has limited medications that she does respond to. 10/06 and 10/07 - Appreciate hematology consultation - per recommendations, serologies for HBV, HCV, HIV, EBV, and an NASIR were ordered to rule out possible contributing factors for neutropenia - Suggesting other causes be ruled out, and determine risk/benefit analysis of continuing antipsychotic medications despite persistent leukocytopenia 10/08 - Serologies ordered per hematology recommendations - Negative results for Hepatitis C Ab screen and HIV screening. Results are pending for EBV and Hepatitis B screening - Pt was informed of negative screen for HIV on this date, verbalized understanding - Case reviewed via phone with consulting modeling director. Unclear that injections to stimulate production of WBCs could be considered given suspected antipsychotic-induced leukocytopenia; however, there are significant risks to patient and others if she is not able to receive appropriate treatment for her schizophrenia. - Plan is to discuss treatment options with modeling director, may need to pursue ethics consultation to assist with risk/benefit analysis of her complicated treatment situation 10/09 - [id number] Consultation and Discussion with Hematology - Spoke with consulting modeling director (Dr. Baumann - covering for Dr. Godoy) regarding patient's complicated situation. He verbalized understanding the patient's quality of life off antipsychotic medications is not ideal, and engaged in discussions regarding possible G-CSF therapy. He kindly offered to pursue prior authorization through his office, and stated he would report back with findings. Information regarding patient's past psychiatric history and need for regular antipsychotic therapy will be offered to further demonstrate need for action to improve white blood cell counts. It was reported a CBC with differential would likely be ordered prior to each injection if G-CSF therapy was pursued. On an inpatient basis, it is recommended that CBC with differential be obtained every 2 to 3 days, and more urgently if patient is reporting any signs or symptoms of infection. Agreed that if G-CSF could not be pursued that patient would likely require an ethics consultation to determine risk/benefit analysis of treating her complicated case. - Information above was explained to patient, who verbalized basic und erstanding. At this time, she is verbalizing willingness for injections if G- CSF therapy is pursued. She even supported willingness for daily injections if necessary. Of course, patient's willingness may wax and wane based off of her mental health, and will need to be reassessed further. - While G-CSF therapy is being explored, we will continue with titration of lithium based on documented outpatient treatment plan and reference articles listed above. Athens level was obtained last evening, and was within low- therapeutic range at 0.6. Will titrate lithium to 600mg this evening, and rech shaggy level of 10/14 Inventory Assets Strengths: Willing for treatment, has outpatient providers Needs: Antipsychotic medication that she can tolerate, coordination with modeling director given recent side effect issues Risk Factors Assessment Male: No : Yes Do You Have Access To A Gun?: No Health Problems: Yes Mental Health Diagnoses: Yes Substance Use Disorders: No Previous Attempt: Yes Previous Psychiatric Hospitalization: Yes Smoker: No Protective Factors Assessment Holiness Beliefs: No : No Responsible for Young Children: No Employed: No Stable Relationships: No Supportive Family: No Interval History Identifying Information KIM DOWLING is a 64-year-old F who currently lives in [facility], has a history of schizophrenia, and was admitted on 09/29/19 19:21 on a 201 voluntary commitment for psychosis with delusions and paranoia. Chief Complaint " Pretty good". Review of Systems Sleep Information Total Hours of Sleep: 7.25 Sleep Comments: pt on q-15 minute checks Meal Information Percent Meal Consumed - Breakfast: 100 Percent Meal Consumed - Lunch: 100 Percent Meal Consumed - Dinner: 75 Subjective Subjective Patient was seen & assessed and interval progress reviewed with nursing and social work. Staff report she agreed to medication to try to increase her WBCs, and the Hematology team is working on the prior authorization. She continues to endorse delusions of having many medical problems and about her peers (believes another patient is from [place]). She is going to all programming. On my assessment, she reports that she is worried about her medication, although was unable to clarify that concern, and also that she has HIV, lymphoma, and skin cancer. We will to follow her train of thought when discussing her concerns. She reports a belief that she will in the next couple of months as a result of the many medical conditions she believes that she has. Physical Exam Psychiatric Orientation: alert and cooperative Overweight, dressed in pajama bottoms and a sweater, seated in bed in no acute distress. Mildly unkempt/disheveled. Eye Contact: + fair eye contact Motor Behavior: no abnormal motor movements Response mildly delayed Affect: + blunted affect "Pretty good." Thought Process: + tangential thought process and + incoherent thought process (At times) Thought Content: + preoccupation, + obsessions and + delusions Suicidal Thoughts: denies suicidal thoughts Homicidal Thoughts: denies homicidal thoughts Insight: + impaired insight Judgement: + impaired judgement Vital Signs (Past 24 Hours) Last Vital Signs Temp 36.6 C 10/11/19 06:29 Pulse 79 10/11/19 06:30 Resp 16 10/11/19 06:29 BP 109/68 10/11/19 06:30 Pulse Ox 100 09/29/19 19:33 Results & Data Laboratory Results Laboratory Results - last 24 hr 10/06/19 10/10/19 14:36 07:20 WBC 2.17 L RBC 3.87 L Hgb 11.7 L Hct 34.5 L MCV 89.1 MCH 30.2 MCHC 33.9 RDW Std Deviation 42.0 RDW Coeff of Nayeli 13.0 Plt Count 137 MPV 9.1 Immature Gran % (Auto) 0.0 Neut % (Auto) 49.3 Lymph % (Auto) 42.9 Coryell % (Auto) 7.8 Eos % (Auto) 0.0 Baso % (Auto) 0.0 Immature Gran # (Auto) 0.00 Neut # (Auto) 1.07 L Lymph # (Auto) 0.93 L Coryell # (Auto) 0.17 Eos # (Auto) 0.00 Baso # (Auto) 0.00 NASIR Screen POSITIVE A EBV Capsid Ag IgG Ab 249.00 H Hepatitis Be Antibody Nonreactive Current Inpatient Medications Current Inpatient Medications: Current Inpatient Medications Acetaminophen (Tylenol) 650 mg PO Q4H PRN PRN Reason: Headache or Minor Fever Stop: 10/29/19 19:46 Al Hydrox/Mg Hydrox/Simethicone (Maalox) 30 ml PO Q4H PRN PRN Reason: GI Upset Stop: 10/29/19 19:46 Bismuth Subsalicylate (Kaopectate) 15 ml PO PRN PRN PRN Reason: Loose Stool Stop: 10/29/19 19:46 Docusate Sodium (Colace) 100 mg PO BID [facility] Stop: 10/29/19 20:59 Last Admin: 10/10/19 20:47 Dose: 100 mg Documented by: Hydroxyzine HCl (Vistaril) 25 mg PO TID NIKOLE Stop: 10/29/19 20:59 Last Admin: 10/10/19 20:47 Dose: 25 mg Documented by: Athens Carbonate (Athens Carbonate) 600 mg PO HS [facility] Stop: 11/08/19 21:59 Last Admin: 10/10/19 20:47 Dose: 600 mg Documented by: Lorazepam (Ativan) 1 mg PO TID [facility] Stop: 10/29/19 20:59 Last Admin: 10/10/19 20:47 Dose: 1 mg Documented by: Magnesium Hydroxide (Milk Of Magnesia) 30 ml PO DAILY PRN PRN Reason: Constipation Stop: 10/29/19 19:46 Perphenazine (Trilafon) 16 mg PO BID [facility] Stop: 10/31/19 20:59 Last Admin: 10/03/19 21:29 Dose: 16 mg Documented by: Sennosides (Senokot) 8.6 mg PO BID PRN PRN Reason: Constipation Stop: 10/29/19 20:59 Last Admin: 10/01/19 18:15 Dose: 8.6 mg Documented by: Sodium Chloride ([facility] Nasal) 1 - 2 sprays NA PRN PRN PRN Reason: Nasal Dryness/Congestion Stop: 10/29/19 19:46 Trazodone HCl (Desyrel) 150 mg PO [facility] Stop: 10/29/19 21:59 Last Admin: 10/10/19 20:48 Dose: 150 mg Documented by: Vitamin B Complex (Vitamin B Complex) 1 tab PO QAM [facility] Stop: 10/30/19 08:59 Last Admin: 10/10/19 08:42 Dose: 1 tab Documented by: Vitamin D (Vitamin D3) 1,000 units PO QAM [facility] Stop: 10/30/19 08:59 Last Admin: 10/10/19 08:42 Dose: 1,000 units Documented by: Mental Health & Subst Abuse Tx Psychiatrist Name of Psychiatrist: [facility] - Dr. Carmen Waters Psychiatrist's Psychiatric Appointment Comment: [address], [address], [place] [address] Therapist Name of Therapist: none Therapist Release of Information: Signed [employer] And Pest Inspector Name of [employer] And Pest Inspector: COURTNEY Zuniga Phone Number for [employer] And P[employer] Inspector: [phone] Case Management Appointment Comment: [address], [address], [place] Post Discharge Appointments Primary Care Physician Name Of Family Doctor: Sarah Drummond Primary Care Provider Appointment Comment: [address], [place] [address] Home Health Services Home Health Agency: [facility] Phone Number of Home Services Agency: [phone] Contact Information Discharge Discharge Address: [address] [place] [address] Contact Information Comment: [facility]
[2019-10-11] MEDS: LORazepam 1 MG TAB PO SCH ×3 (08:41→20:44)
[2019-10-11] MEDS: DOCUSATE SODIUM 100 MG CAP PO SCH ×2 (08:42→20:44)
[2019-10-11] MEDS: CHOLECALCIFEROL 1,000 UNITS TAB PO SCH (08:42)
[2019-10-11] MEDS: VITAMIN B COMPLEX TAB PO SCH (08:42)
[2019-10-11] MEDS: PERPHENAZINE 2 MG TABLET PO SCH (20:46)
[2019-10-11] MEDS: TRAZODONE HCL 50 MG TAB PO SCH (20:47)
[2019-10-11] MEDS: LITHIUM CARBONATE 300 MG TAB PO SCH (20:47)
[2019-10-11] MEDS ORDERED: PERPHENAZINE 2 MG TABLET PO SCH (21:00)
[2019-10-12 08:49] LABS: ANA Titer 1:40 titer
[2019-10-12] MEDS: LORazepam 1 MG TAB PO SCH ×3 (09:09→21:12)
[2019-10-12] MEDS: DOCUSATE SODIUM 100 MG CAP PO SCH ×2 (09:10→21:12)
[2019-10-12] MEDS: PERPHENAZINE 2 MG TABLET PO SCH ×2 (09:10→21:13)
[2019-10-12] MEDS: VITAMIN B COMPLEX TAB PO SCH (09:12)
[2019-10-12] MEDS: CHOLECALCIFEROL 1,000 UNITS TAB PO SCH (09:12)
--- NOTE | 2019-10-12 09:26 | Psychiatric Progress Note ---
Date of Service October 12, 2019 Impression / Recommendations Impression 64-year-old female personal half-way resident who has a history of chronic paranoid schizophrenia and presents with worsening psychosis in the context of multiple antipsychotic medication changes due to leukocytopenia. Continued inpatient psychiatric hospitalization is medically necessary, as attempts are being made to coordinate treatment plan with hematology. Plan is to review risk/benefit analysis of treating patient's schizophrenia with agents presumed to be inducing leukocytopenia. Patient has been restarted on titration of perphenazine, last CBC with differential obtained on 10/10. WBC - now 2.17; Neutrophils mildly decreased from 1.15 to 1.07. Will order every third day CBC's with differential for monitoring. In the context of holding her antipsychotic medication, she became more delusional. Perphenazine was restarted and titrated to 12mg BID - with some mild improvements since restart. Given patient's significant psychiatric history, there is concern for risk of harm to self or others if patient is discharged without appropriate medication plan to support overall health and wellness. Inpatient psychiatric treatment remains medically necessary, as patient continues to be at acute risk of harm to self or others due to persistent delusional beliefs causing her to feel unsafe and paranoia. (1) Chronic paranoid schizophrenia: 09/30 -continue current antipsychotic for now (perphenazine 12 mg every morning and 16 mg at bedtime) while getting information from her outpatient SCOURER at the [facility] psych clinic regarding recent medication changes/side effects/symptoms. -Reportedly did well on perphenazine but had problems with ? leukocytopenia, and at some point saw a dividing machine operator helper -request those records and consider need for inpatient consult. -Continue home dose of lithium (trough level 0.4 today), Lorazepam 1 mg 3 times daily, hydroxyzine 25 mg 3 times daily, and trazodone 150 mg at bedtime. -Encourage patient to attend and participate in groups and therapy. -Coordinate care with [facility] staff and [facility] and involve them in treatment and discharge planning. 10/01 - After review of risks and benefits, patient is agreeable with titration fo perphenazine to 16mg BID - consider eventual need to return to augmenting agent (history shows favorable response to paliperidone and olanzapine - but both with concerns for leukocytopenia in the past) - [place] titrated to 450mg qHS - as means to combat neutropenia - see below - Awaiting dividing machine operator helper records - Encourage continued participation in group and recreational therapies 10/02 -The patient continues to harbor poorly systematized delusional beliefs, primarily of paranoid content. For example, today she tells me that we are part of a "secret" world war that we dare not discussed. She continues to believe that her her residential facility ([facility]) may be trying to "put one over on [her]" and she is not sure that it is a safe place to live. She goes through a list of places where she has lived recently and identifies each of them as being a place where she is disinclined to feel safe. -We discussed what "paranoid" means and I tried to help her understand that it is likely that she will periodically have feelings of not being safe in various locations and that she it is not reasonable for her to expect to change community housing based solely on a sense that she is not safe. The patient said that she understood this and tends to agree. -Patient appears to be tolerating lithium carbonate 450 mg at bedtime. We will recheck her lithium level and her CBC with differential in the morning. Patient's most recent lithium level was 0.4. -Because of the leukopenia we are disinclined to rechallenge the patient with an atypical antipsychotic medication at the present time. However, the plan is to eventually restart either olanzapine or Invega, as indicated by laboratory data and her response to current treatment. -Patient notes that she has improved to the degree that her mood is "good" and she has not experienced any perceptual disturbances ("voices" and "visions") since arriving on the behavioral health unit. -The plan is to continue perphenazine 16 mg at bedtime, in combination with lithium carbonate as above. Material risks and anticipated benefits of both medications were reviewed with the patient today and she indicated understandi ng. 10/03 lithium level 0.6, drop in absolute neutrophil count since last draw but lower previously. 10/05/19 feel need to continue antipsychotic as she is at risk for severe decompensation, will continue lithium given references provided below, and consult hematology for discussion and recommendations 10/06 - Continue to hold Trilafon at this time, though it is desire to resume an antipsychotic agent to prevent decompensation as above - Appreciate hematology recommendations; attempts made to review [id number] about re-start of Trilafon versus initiation of an alternative agent - unable to make connection via phone today - continue lithium as above, consider if further titration would be benficial 10/07 - due to risk of severe decompensation and evidence that 3 days off perp henazine that psychotic sx are returning, despite risk of neutropenia from same med we will restart with rapid titration of perphenazine (4mg bid today, 8mg bid 10/08, and 12mg po bid 10/09, with likely return to prior higher doses of 12mgAM/16mg/hs over the days after that) as risk of inabiltiy to function at this time outweighs risk of neutropenia but further discussion wtih hematology and patient overtime will be needed, but we need to maintain her capacity to the best of our ability to make that judgment as well as safety to self and others, patient was informed of this today and agrees, although again she is superficial unconcerned and pleasant about this 10/08 - Continue perphenazine titration as above - pt to receive 8mg BID today, with titration to 12mg BID tomorrow - Hematology contacted and appreciated ongoing presence in patient's complex case - Will order repeat lithium level for this evening - consider titration of lithium to 600mg tomorrow evening if level is reasonably within limits - Continue to encourage participation in group and recreational programming as tolerated 10/09 - Perphenazine titrated to 12mg BID today - dose prior to admission was 12mg qAM and 16mg qHS - With hematology on board, will need determine if it is necessary to retrial augmentation with paliperidone or other antipsychotic medication (as patient historically has not been stabilized on perphenazine alone, and has continued to verbalize delusional thoughts and paranoia on the unit). - Titrating lithium to 600mg this evening; trough level obtained last evening and was 0.6 - Pt continues to be superficially pleasant, with seemingly artificial cheerfulness - but also continues to verbalize delusional thought content to staff periodically 10/11 -Perphenazine was held yesterday, but will be resumed today at 12 mg twice daily. Recheck CBC with differential on 10/13/2019. 10/12 - Continue perphenazine 12mg BID, she continues to intermittently verbalize delusional thought content - CBC w/ diff ordered for tomorrow (2) Leukocytopenia: 09/30 - WBC 2.6 and ANC 1.65 on admission. In 07/2019, ANC was is low at 0.85, and WBC 1.85. Get records from outpatient psychiatrist and dividing machine operator helper to clarify recent medication changes and thoughts regarding etiology. -Patient with 2 known previous episodes of leukocytopenia, thought to be caused by antipsychotic medication (Haldol and 2011 and olanzapine here in 2018). 10/01 - After review with patient's outpatient psychiatric prescriber, it appears lithium was being utilized as an adjunctive medication with thoughts it may counteract atypical antipsychotic-induced neutropenia - Several review articles found to support this theory, though most were directed toward clozapine-induced neutropenia specifically. - Basic explanation of this idea was provided to patient, who was agreeable with titration of lithium to 450mg qHS (lower dose adjustment as patient reported perceived fogginess since addition of lithium). Reference articles: - Jenny Molina., Sunita Wolfe., Sharifa Serrano., Anmol S., & Barbara Contreras (2016). Continuing clozapine treatment with lithium in schizophrenic patients with neutropenia or leukopenia: brief review of literature with case reports. Therapeutic advances in psychopharmacology, 6(1), 3330. doi:10.1177/[id number] - Zoey Robin., Jason Unger., Terrence Narayaann., Adam Rivera., Terrence Castrejon., Lucia Maloney., Gokristopher, N. (2009). Adjunctive use of lithium carbonate for the management of neutropenia in clozapine-treated children. Human psychopharmacology, 24(7), 188968. doi:10.1002/hup.1056 10/02 -We will recheck the patient's CBC with differential in the morning. No current evidence of any infectious process, despite her leukopenia. 10/04 --CBC yesterday and today are both similar and consistent with lab draws in August. Chronic issue, previously attributed to paliperidone but clearly not resolving on trilafon. Trilafon packing labelling states should be held <1000 but she is already quite decompensated and not clear alternative. Will ask primary attending for second opinion, no records from outpatient hematology available today. 10/05 hematology consultation to discuss this catch-22 of treatment as she is at severe risk to self and others if she becomes psychiatrically decompensated and yet all antipsychotics can risk agranulocytosis, further she has limited medications that she does respond to. 10/06 and 10/07 - Appreciate hematology consultation - per recommendations, serologies for HBV, HCV, HIV, EBV, and an NASIR were ordered to rule out possible contributing factors for neutropenia - Suggesting other causes be ruled out, and determine risk/benefit analysis of continuing antipsychotic medications despite persistent leukocytopenia 10/08 - Serologies ordered per hematology recommendations - Negative results for Hepatitis C Ab screen and HIV screening. Results are pending for EBV and Hepatitis B screening - Pt was informed of negative screen for HIV on this date, verbalized understanding - Case reviewed via phone with consulting dividing machine operator helper. Unclear that injecti ons to stimulate production of WBCs could be considered given suspected antipsychotic-induced leukocytopenia; however, there are significant risks to patient and others if she is not able to receive appropriate treatment for her schizophrenia. - Plan is to discuss treatment options with dividing machine operator helper, may need to pursue ethics consultation to assist with risk/benefit analysis of her complicated t reatment situation 10/09 - [id number] Consultation and Discussion with Hematology - Spoke with consulting dividing machine operator helper (Dr. Baumann - covering for Dr. Godoy) regarding patient's complicated situation. He verbalized understanding the patient's quality of life off antipsychotic medications is not ideal, and engaged in discussions regarding possible G-CSF therapy. He kindly offered to pursue prior authorization through his office, and stated he would report back with findings. Information regarding patient's past psychiatric history and need for regular antipsychotic therapy will be offered to further demonstrate need for action to improve white blood cell counts. It was reported a CBC with differential would likely be ordered prior to each injection if G-CSF therapy was pursued. On an inpatient basis, it is recommended that CBC with differential be obtained every 2 to 3 days, and more urgently if patient is reporting any signs or symptoms of infection. Agreed that if G-CSF could not be pursued that patient would likely require an ethics consultation to determine risk/benefit analysis of treating her complicated case. - Information above was explained to patient, who verbalized basic understanding. At this time, she is verbalizing willingness for injections if G-CSF therapy is pursued. She even supported willingness for daily injections if necessary. Of course, patient's willingness may wax and wane based off of her mental health, and will need to be reassessed further. - While G-CSF therapy is being explored, we will continue with titration of lithium based on documented outpatient treatment plan and reference articles listed above. [place] level was obtained last evening, and was within low- therapeutic range at 0.6. Will titrate lithium to 600mg this evening, and recheck level of 10/14 Inventory Assets Strengths: Willing for treatment, has outpatient providers Needs: Antipsychotic medication that she can tolerate, coordination with dividing machine operator helper given recent side effect issues Risk Factors Assessment Male: No : Yes Do You Have Access To A Gun?: No Health Problems: Yes Mental Health Diagnoses: Yes Substance Use Disorders: No Previous Attempt: Yes Previous Psychiatric Hospitalization: Yes Smoker: No Protective Factors Assessment Confucianist Beliefs: No : No Responsible for Young Children: No Employed: No Stable Relationships: No Supportive Family: No Interval History Identifying Information KIM DOWLING is a 64-year-old F who currently lives in [facility], has a history of schizophrenia, and was admitted on 09/29/19 19:21 on a 201 voluntary commitment for psychosis with delusions and paranoia. Chief Complaint "I'm fine. Thank you." Review of Systems Notes Constitutional: denied HEENT: reports runny nose and cough Cardiovascular: denied Respiratory: denied Gastrointestinal: denied Neurological: denied Psychiatric: denies symptoms other than stated above Total of at least 10 systems reviewed, pertinent positives as above and in HPI. Sleep Information Total Hours of Sleep: 7 Sleep Comments: pt on q-15 minute checks Meal Information Percent Meal Consumed - Breakfast: 100 Percent Meal Consumed - Lunch: 100 Percent Meal Consumed - Dinner: 100 Subjective Subjective Patient was seen & assessed and interval progress reviewed with treatment team. Staff reports the patient has demonstrated some mild improvement in her condition since yesterday. It is reported she remained preoccupied with delusions related to [employer] and [employer] students being in the near vicinity. Hematology continues to pursue G-CSF therapy options. Patient was seen today to assess progress since admission. She reports that she is "fine", and denies any significant events over the weekend. Patient was observed to be carrying a Kleenex and blowing her nose, when asked about her symptoms she states "it is just a cold." Patient admits to runny nose and a cough, which the patient believes has been going on "for a couple months." Patient denies fever, chills, sweats, headache, and nausea/vomiting. She was offered medications to assist with symptoms of a URI, but declined. Patient was informed who would continue to monitor the symptoms, as we are attempting to prevent worsening of infection given her low white blood cell counts. Patient was informed that she is to have a visit with a sales representative raw fibers from [place] tomorrow. Patient does not verbalize any safety concerns or paranoia on the unit. She does inform this provider that "[facility] going to move out of [place]. [place] will almost be a ghost town again." Otherwise, patient does not verbalize any bizarre or delusional thought content to this provider specifically. She denies other needs or concerns today. Physical Exam Psychiatric Orientation: alert and cooperative (superficially pleasant) Apperance: appropriately dressed (wearing striped sweater and long skirt) and + disheveled (appearing unkempt) Eye Contact: + fair eye contact Motor Behavior: steady gait and station and no abnormal motor movements Speech: normal rate/rhythm/volume of speech (mildly delayed response to questions) Affect: + blunted affect Mood: no depressed mood ("I'm fine") Thought Process: + circumstantial thought process; + thought process not linear or logical (linear thought process, but not logical) Thought Content: + preoccupation and + delusions Suicidal Thoughts: denies suicidal thoughts Homicidal Thoughts: denies homicidal thoughts Hallucinations: no auditory hallucinations and no visual hallucinations Remains delusional, but does not verbalize A/V hallucinations Cognition: attention grossly intact and language grossly intact Insight: + impaired insight Judgement: + impaired judgement Vital Signs (Past 24 Hours) Last Vital Signs Temp 36.5 C 10/12/19 06:28 Pulse 58 L 10/12/19 06:29 Resp 18 10/12/19 06:28 BP 120/76 10/12/19 06:29 Pulse Ox 100 09/29/19 19:33 Results & Data Laboratory Results Laboratory Results - last 24 hr 10/06/19 14:36 NASIR Titer 1:40 H NASIR Pattern A Current Inpatient Medications Current Inpatient Medications: Current Inpatient Medications Acetaminophen (Tylenol) 650 mg PO Q4H PRN PRN Reason: Headache or Minor Fever Stop: 10/29/19 19:46 Al Hydrox/Mg Hydrox/Simethicone (Maalox) 30 ml PO Q4H PRN PRN Reason: GI Upset Stop: 10/29/19 19:46 Bismuth Subsalicylate (Kaopectate) 15 ml PO PRN PRN PRN Reason: Loose Stool Stop: 10/29/19 19:46 Docusate Sodium (Colace) 100 mg PO BID [facility] Stop: 10/29/19 20:59 Last Admin: 10/12/19 09:10 Dose: 100 mg Documented by: Hydroxyzine HCl (Vistaril) 25 mg PO TID [facility] Stop: 10/29/19 20:59 Last Admin: 10/12/19 09:11 Dose: 25 mg Documented by: [place] Carbonate ([place] Carbonate) 600 mg PO [facility] Stop: 11/08/19 21:59 Last Admin: 10/11/19 20:47 Dose: 600 mg Documented by: Lorazepam (Ativan) 1 mg PO TID [facility] Stop: 10/29/19 20:59 Last Admin: 10/12/19 09:09 Dose: 1 mg Documented by: Magnesium Hydroxide (Milk Of Magnesia) 30 ml PO DAILY PRN PRN Reason: Constipation Stop: 10/29/19 19:46 Perphenazine (Trilafon) 16 mg PO BID [facility] Stop: 10/31/19 20:59 Last Admin: 10/03/19 21:29 Dose: 16 mg Documented by: Perphenazine (Trilafon) 12 mg PO BID [facility] Stop: 11/10/19 20:59 Last Admin: 10/12/19 09:10 Dose: 12 mg Documented by: Sennosides (Senokot) 8.6 mg PO BID PRN PRN Reason: Constipation Stop: 10/29/19 20:59 Last Admin: 10/01/19 18:15 Dose: 8.6 mg Documented by: Sodium Chloride ([place] Nasal) 1 - 2 sprays NA PRN PRN PRN Reason: Nasal Dryness/Congestion Stop: 10/29/19 19:46 Trazodone HCl (Desyrel) 150 mg PO [facility] Stop: 10/29/19 21:59 Last Admin: 10/11/19 20:47 Dose: 150 mg Documented by: Vitamin B Complex (Vitamin B Complex) [facility] [place] [place]: 10/30/19 08:59 Last Admin: 10/12/19 09:12 Dose: 1 tab Documented by: Vitamin D (Vitamin D3) 1,000 units PO QAM [facility] Stop: 10/30/19 08:59 Last Admin: 10/12/19 09:12 Dose: 1,000 units Documented by: Mental Health & Subst Abuse Tx Psychiatrist Name of Psychiatrist: [facility] - Dr. Carmen Waters Psychiatrist's Psychiatric Appointment Comment: [address], [address], [place] [address] Therapist Name of Therapist: none Therapist Release of Information: Signed Ups Driver Name of Ups Driver: COURTNEY Zuniga Phone Number for Ups Driver: [phone] Case Management Appointment Comment: [address], [address], [place] Post Discharge Appointments Primary Care Physician Name Of Family Doctor: Sarah - Dr. Drummond Primary Care Provider Appointment Comment: [address], [place] [address] Home Health Services Home Health Agency: [facility] Phone Number of Home Services Agency: [phone] Contact Information Discharge Discharge Address: [address] [place] [address] [place] [address] Contact Information Comment: [facility]
[2019-10-12] MEDS: TRAZODONE HCL 50 MG TAB PO SCH (21:14)
[2019-10-12] MEDS: LITHIUM CARBONATE 300 MG TAB PO SCH (21:14)
[2019-10-13] MEDS: LORazepam 1 MG TAB PO SCH ×3 (07:39→20:55)
[2019-10-13] MEDS: DOCUSATE SODIUM 100 MG CAP PO SCH ×2 (07:39→20:46)
[2019-10-13] MEDS: PERPHENAZINE 2 MG TABLET PO SCH ×2 (07:40→20:48)
[2019-10-13] MEDS: CHOLECALCIFEROL 1,000 UNITS TAB PO SCH (07:41)
[2019-10-13] MEDS: VITAMIN B COMPLEX TAB PO SCH (07:41)
[2019-10-13 07:55] LABS: Hematocrit (blood only) 33.9 % (37-47); Hemoglobin 11.6 g/dL (12.0-16.0); Lymphocytes # (auto) 0.59 K/uL (1.2-3.4); Lymphocytes % (auto) 33.7 %; Mean Corpuscular Hemoglobin 30.5 pg (25-34); Mean Corpuscular Hgb Conc 34.2 g/dL (32-36); Mean Corpuscular Volume 89.2 fL (80-100); Mean Platelet Volume 9.3 fL (7.4-10.4); Monocytes # (auto) 0.16 K/uL (0.11-0.59); Monocytes % (auto) 9.1 %; Neutrophils % (auto) 57.2 %; Platelet Count 129 K/uL (130-400); RDW Coefficient of Variation 13.1 % (11.5-14.5); RDW Standard Deviation 42.2 fL (36.4-46.3); White Blood Count 1.75 K/uL (4.8-10.8)
--- NOTE | 2019-10-13 09:17 | Psychiatric Progress Note ---
Date of Service October 13, 2019 Impression / Recommendations Impression 64-year-old female personal halfway resident who has a history of chronic paranoid schizophrenia and presents with worsening psychosis in the context of multiple antipsychotic medication changes due to leukocytopenia. Continued inpatient psychiatric hospitalization is medically necessary, as attempts are being made to coordinate treatment plan with hematology. Plan is to review risk/benefit analysis of treating patient's schizophrenia with agents presumed to be inducing leukocytopenia. Patient has been restarted on titration of perphenazine, last CBC with differential obtained on 10/13. WBC - now 1.75; Neutrophils mildly decreased from 1.07 to 1.00. Will order every third day CBC's with differential for monitoring. In the context of holding her antipsychotic medication, she became more delusional. Perphenazine was restarted and titrated to 12mg BID - with some mild improvements since restart. Given patient's significant psychiatric history, there is concern for risk of harm to self or others if patient is discharged without appropriate medication plan to support overall health and wellness. Inpatient psychiatric treatment remains medically necessary, as patient continues to be at acute risk of harm to self or others due to persistent delusional beliefs causing her to feel unsafe and paranoia. (1) Chronic paranoid schizophrenia: 09/30 -continue current antipsychotic for now (perphenazine 12 mg every morning and 16 mg at bedtime) while getting information from her outpatient WASH TUB MACHINE OPERATOR at the [facility] psych clinic regarding recent medication changes/side effects/symptoms. -Reportedly did well on perphenazine but had problems with ? leukocytopenia, and at some point saw a social media specialist -request those records and consider need for inpatient consult. -Continue home dose of lithium (trough level 0.4 today), Lorazepam 1 mg 3 times daily, hydroxyzine 25 mg 3 times daily, and trazodone 150 mg at bedtime. -Encourage patient to attend and participate in groups and therapy. -Coordinate care with [facility] staff and [facility] and involve them in treatment and discharge planning. 10/01 - After review of risks and benefits, patient is agreeable with titration fo perphenazine to 16mg BID - consider eventual need to return to augmenting agent (history shows favorable response to paliperidone and olanzapine - but both with concerns for leukocytopenia in the past) - Glass[place] titrated to 450mg qHS - as means to combat neutropenia - see below - Awaiting social media specialist records - Encourage continued participation in group and recreational therapies 10/02 -The patient continues to harbor poorly systematized delusional beliefs, primarily of paranoid content. For example, today she tells me that we are part of a "secret" world war that we dare not discussed. She continues to believe that her her residential facility ([facility]) may be trying to "put one over on [her]" and she is not sure that it is a safe place to live. She goes through a list of places where she has lived recently and identifies each of them as being a place where she is disinclined to feel safe. -We discussed what "paranoid" means and I tried to help her understand that it is likely that she will periodically have feelings of not being safe in various locations and that she it is not reasonable for her to expect to change community housing based solely on a sense that she is not safe. The patient said that she understood this and tends to agree. -Patient appears to be tolerating lithium carbonate 450 mg at bedtime. We will recheck her lithium level and her CBC with differential in the morning. Patient's most recent lithium level was 0.4. -Because of the leukopenia we are disinclined to rechallenge the patient with an atypical antipsychotic medication at the present time. However, the plan is to eventually restart either olanzapine or Invega, as indicated by laboratory data and her response to current treatment. -Patient notes that she has improved to the degree that her mood is "good" and she has not experienced any perceptual disturbances ("voices" and "visions") since arriving on the behavioral health unit. -The plan is to continue perphenazine 16 mg at bedtime, in combination with lithium carbonate as above. Material risks and anticipated benefits of both medications were reviewed with the patient today and she indicated understand ing. 10/03 lithium level 0.6, drop in absolute neutrophil count since last draw but lower previously. 10/05/19 feel need to continue antipsychotic as she is at risk for severe decompensation, will continue lithium given references provided below, and consult hematology for discussion and recommendations 10/06 - Continue to hold Trilafon at this time, though it is desire to resume an antipsychotic agent to prevent decompensation as above - Appreciate hematology recommendations; attempts made to review [id number] about re-start of Trilafon versus initiation of an alternative agent - unable to make connection via phone today - continue lithium as above, consider if further titration would be beneficial 10/07 - due to risk of severe decompensation and evidence that 3 days off pe rphenazine that psychotic sx are returning, despite risk of neutropenia from same med we will restart with rapid titration of perphenazine (4mg bid today, 8mg bid 10/08, and 12mg po bid 10/09, with likely return to prior higher doses of 12mgAM/16mg/hs over the days after that) as risk of inability to function at this time outweighs risk of neutropenia but further discussion wt hematology and patient overtime will be needed, but we need to maintain her capacity to the best of our ability to make that judgment as well as safety to self and others, patient was informed of this today and agrees, although again she is superficial unconcerned and pleasant about this 10/08 - Continue perphenazine titration as above - pt to receive 8mg BID today, with titration to 12mg BID tomorrow - Hematology contacted and appreciated ongoing presence in patient's complex case - Will order repeat lithium level for this evening - consider titration of lithium to 600mg tomorrow evening if level is reasonably within limits - Continue to encourage participation in group and recreational programming as tolerated 10/09 - Perphenazine titrated to 12mg BID today - dose prior to admission was 12mg qAM and 16mg qHS - With hematology on board, will need determine if it is necessary to retrial augmentation with paliperidone or other antipsychotic medication (as patient historically has not been stabilized on perphenazine alone, and has continued to verbalize delusional thoughts and paranoia on the unit). - Titrating lithium to 600mg this evening; trough level obtained last evening and was 0.6 - Pt continues to be superficially pleasant, with seemingly artificial cheerfulness - but also continues to verbalize delusional thought content to staff periodically 10/11 -Perphenazine was held yesterday, but will be resumed today at 12 mg twice daily. Recheck CBC with differential on 10/13/2019. 10/12 - Continue perphenazine 12mg BID, she continues to intermittently verbalize delusional thought content - CBC w/ diff ordered for tomorrow 10/13 - Continue perphenazine 12mg BID, phlebotomy services representative from [facility] to visit today, plans to assess proximity to baseline now that antipsychotic medications have been resumed - CBC w/diff reviewed below - Glass[place] level due 10/14 (2) Leukocytopenia: 09/30 - WBC 2.6 and ANC 1.65 on admission. In 07/2019, ANC was is low at 0.85, and WBC 1.85. Get records from outpatient psychiatrist and social media specialist to clarify recent medication changes and thoughts regarding etiology. -Patient with 2 known previous episodes of leukocytopenia, thought to be caused by antipsychotic medication (Haldol and 2011 and olanzapine here in 2018). 10/01 - After review with patient's outpatient psychiatric prescriber, it appears lithium was being utilized as an adjunctive medication with thoughts it may counteract atypical antipsychotic-induced neutropenia - Several review articles found to support this theory, though most were directed toward clozapine-induced neutropenia specifically. - Basic explanation of this idea was provided to patient, who was agreeable with titration of lithium to 450mg qHS (lower dose adjustment as patient reported perceived fogginess since addition of lithium). Reference articles: - Jenny Molina., Sunita Wolfe., Sharifa Serrano., Anmol SGood, & Barbara Contreras (2016). Continuing clozapine treatment with lithium in schizophrenic patients with neutropenia or leukopenia: brief review of literature with case reports. Therapeutic advances in psychopharmacology, 6(1), 3330. doi:10.1177/[id number] - Zoey Robin., Jason Unger., Terrence Narayanan., Adam Rivera., Terrence Castrejon., Lucia Maloney., Anna, N. (2009). Adjunctive use of lithium carbonate for the management of neutropenia in clozapine-treated children. Human psychopharmacology, 24(9), 936013. doi:10.1002/hup.1056 10/02 -We will recheck the patient's CBC with differential in the morning. No current evidence of any infectious process, despite her leukopenia. 10/04 --CBC yesterday and today are both similar and consistent with lab draws in August. Chronic issue, previously attributed to paliperidone but clearly not resolving on trilafon. Trilafon packing labelling states should be held <1000 but she is already quite decompensated and not clear alternative. Will ask primary attending for second opinion, no records from outpatient hematology available today. 10/05 hematology consultation to discuss this catch-22 of treatment as she is at severe risk to self and others if she becomes psychiatrically decompensated and yet all antipsychotics can risk agranulocytosis, further she has limited medications that she does respond to. 10/06 and 10/07 - Appreciate hematology consultation - per recommendations, serologies for HBV, HCV, HIV, EBV, and an NASIR were ordered to rule out possible contributing factors for neutropenia - Suggesting other causes be ruled out, and determine risk/benefit analysis of continuing antipsychotic medications despite persistent leukocytopenia 10/08 - Serologies ordered per hematology recommendations - Negative results for Hepatitis C Ab screen and HIV screening. Results are pending for EBV and Hepatitis B screening - Pt was informed of negative screen for HIV on this date, verbalized understanding - Case reviewed via phone with consulting social media specialist. Unclear that injections to stimulate production of WBCs could be considered given suspected antipsychotic-induced leukocytopenia; however, there are significant risks to patient and others if she is not able to receive appropriate treatment for her schizophrenia. - Plan is to discuss treatment options with social media specialist, may need to pursue ethics consultation to assist with risk/benefit analysis of her complicated treatment situation 10/09 - [id number] Consultation and Discussion with Hematology - Spoke with consulting social media specialist (Dr. Baumann - covering for Dr. Godoy) regarding patient's complicated situation. He verbalized understanding the patient's quality of life off antipsychotic medications is not ideal, and engaged in discussions regarding possible G-CSF therapy. He kindly offered to pursue prior authorization through his office, and stated he would report back with findings. Information regarding patient's past psychiatric history and need for regular antipsychotic therapy will be offered to further demonstrate need for action to improve white blood cell counts. It was reported a CBC with differential would likely be ordered prior to each injection if G-CSF therapy was pursued. On an inpatient basis, it is recommended that CBC with differential be obtained every 2 to 3 days, and more urgently if patient is reporting any signs or symptoms of infection. Agreed that if G-CSF could not be pursued that patient would likely require an ethics consultation to determine risk/benefit analysis of treating her complicated case. - Information above was explained to patient, who verbalized basic understanding. At this time, she is verbalizing willingness for injections if G-CSF therapy is pursued. She even supported willingness for daily injections if necessary. Of course, patient's willingness may wax and wane based off of her mental health, and will need to be reassessed further. - While G-CSF therapy is being explored, we will continue with titration of lithium based on documented outpatient treatment plan and reference articles listed above. [place] level was obtained last evening, and was within low-t herapeutic range at 0.6. Will titrate lithium to 600mg this evening, and recheck level of 10/14 10/13 - CBC w/diff ordered today - ANC remains low, but not in critical range as before. Value decreased from 1.07 (10/10) to 1.00 (10/13) - WBCs decreased from 2.17 (10/10) to 1.75 (10/13) - Continue to coordinate care with social media specialist Inventory Assets Strengths: Willing for treatment, has outpatient providers Needs: Antipsychotic medication that she can tolerate, coordination with social media specialist given recent side effect issues Risk Factors Assessment Male: No : Yes Do You Have Access To A Gun?: No Health Problems: Yes Mental Health Diagnoses: Yes Substance Use Disorders: No Previous Attempt: Yes Previous Psychiatric Hospitalization: Yes Smoker: No Protective Factors Assessment Sikh Beliefs: No : No Responsible for Young Children: No Employed: No Stable Relationships: No Supportive Family: No Interval History Identifying Information KIM DOWLING is a 64-year-old F who currently lives in [facility], has a history of schizophrenia, and was admitted on 09/29/19 19:21 on a 201 voluntary commitment for psychosis with delusions and paranoia. Chief Complaint "I was already awake, but went back to bed. I was planning to get up at 9:30 for group, so I still have some time to sleep." Review of Systems Notes Constitutional: reports feeling "under the weather", but denies URI symptoms Cardiovascular: denied Respiratory: denied Gastrointestinal: denied Neurological: denied Musculoskeletal: reports mild back pain Psychiatric: denies symptoms other than stated above Total of at least 10 systems reviewed, pertinent positives as above and in HPI. Sleep Information Total Hours of Sleep: 9.25 Sleep Comments: pt on q-15 minute checks Meal Information Percent Meal Consumed - Breakfast: 100 Percent Meal Consumed - Lunch: 100 Percent Meal Consumed - Dinner: 100 Subjective Subjective Patient was seen & assessed and interval progress reviewed with nursing and social work. Staff reports patient continues to verbalize delusional thought content last evening, feeling as though she was responsible for a child's and stating that she felt she could not trust staff. Verbalization of these delusional thoughts became less frequent as the day progressed. She rated her mood a 7/10 last evening, and appeared to be more trusting of staff. It is reported that a phlebotomy services representative from [facility] is planning to meet with the patient, possibly today. Patient was seen today to assess progress since patient. She states that she is still a bit tired this morning. She reports having been awake for breakfast, but was planning to sleep until the first morning group. Patient denies any concerns related to her mood, and denies safety concerns here on the unit. She does verbalize that she is feeling "under the weather", but when asked what this meant only stated "my back hurts a little bit." Patient did not verbalize any delusional thought content during our conversation, and states the day went well yesterday. She states she went to most groups, and feels things have been improving. Patient denies suicidal ideation. She denies other needs or concerns today. Physical Exam Psychiatric Orientation: alert, oriented x 3 and cooperative (Pleasant, but appearing almost forced) Apperance: appropriately dressed, + disheveled (Hair is unkempt) and appeared stated age Eye Contact: good eye contact Motor Behavior: no abnormal motor movements (Observed while laying in bed) Speech: normal rate/rhythm/volume of speech Affect: + blunted affect (Displays a seemingly forced pleasant affect) Mood: no depressed mood ("I am fine, just a little tired") Thought Process: goal directed thought process and linear/logical thought process (During interview, though illogical thoughts mentioned to other staff) Thought Content: + delusions; no hopelessness No specific delusional thoughts mentioned to this provider; however, patient continues to verbalize delusional concerns to further staff Suicidal Thoughts: denies suicidal thoughts and denies suicidal intent Homicidal Thoughts: denies homicidal thoughts Hallucinations: no auditory hallucinations and no visual hallucinations Cognition: attention grossly intact and language grossly intact Insight: + limited insight Judgement: + limited judgement Vital Signs (Past 24 Hours) Last Vital Signs Temp 36.8 C 10/13/19 06:25 Pulse 62 10/13/19 06:26 Resp 18 10/13/19 06:25 BP 113/76 10/13/19 06:26 Pulse Ox 100 09/29/19 19:33 Results & Data Laboratory Results Laboratory Results - last 24 hr 10/13/19 07:31 WBC 1.75 L RBC 3.80 L Hgb 11.6 L Hct 33.9 L MCV 89.2 MCH 30.5 MCHC 34.2 RDW Std Deviation 42.2 RDW Coeff of Nayeli 13.1 Plt Count 129 L MPV 9.3 Immature Gran % (Auto) 0.0 Neut % (Auto) 57.2 Lymph % (Auto) 33.7 Zapata % (Auto) 9.1 Eos % (Auto) 0.0 Baso % (Auto) 0.0 Immature Gran # (Auto) 0.00 Neut # (Auto) 1.00 L Lymph # (Auto) 0.59 L Zapata # (Auto) 0.16 Eos # (Auto) 0.00 Baso # (Auto) 0.00 Current Inpatient Medications Current Inpatient Medications: Current Inpatient Medications Acetaminophen (Tylenol) 650 mg PO Q4H PRN PRN Reason: Headache or Minor Fever Stop: 10/29/19 19:46 Al Hydrox/Mg Hydrox/Simethicone (Maalox) 30 ml PO Q4H PRN PRN Reason: GI Upset Stop: 10/29/19 19:46 Bismuth Subsalicylate (Kaopectate) 15 ml PO PRN PRN PRN Reason: Loose Stool Stop: 10/29/19 19:46 Docusate Sodium (Colace) 100 mg PO BID [facility] Stop: 10/29/19 20:59 Last Admin: 10/13/19 07:39 Dose: 100 mg Documented by: Hydroxyzine HCl (Vistaril) 25 mg PO TID [facility] Stop: 10/29/19 20:59 Last Admin: 10/13/19 07:41 Dose: 25 mg Documented by: Glassboro Carbonate (Glassboro Carbonate) 600 mg PO HS [facility] Stop: 11/08/19 21:59 Last Admin: 10/12/19 21:14 Dose: 600 mg Documented by: Lorazepam (Ativan) 1 mg PO TID [facility] Stop: 10/29/19 20:59 Last Admin: 10/13/19 07:39 Dose: 1 mg Documented by: Magnesium Hydroxide (Milk Of Magnesia) 30 ml PO DAILY PRN PRN Reason: Constipation Stop: 10/29/19 19:46 Perphenazine (Trilafon) 16 mg PO BID [facility] Stop: 10/31/19 20:59 Last Admin: 10/03/19 21:29 Dose: 16 mg Documented by: Perphenazine (Trilafon) 12 mg PO BID [facility] Stop: 11/10/19 20:59 Last Admin: 10/13/19 07:40 Dose: 12 mg Documented by: Sennosides (Senokot) 8.6 mg PO BID PRN PRN Reason: Constipation Stop: 10/29/19 20:59 Last Admin: 10/01/19 18:15 Dose: 8.6 mg Documented by: Sodium Chloride (Silvis Nasal) 1 - 2 sprays NA PRN PRN PRN Reason: Nasal Dryness/Congestion Stop: 10/29/19 19:46 Trazodone HCl (Desyrel) 150 mg PO HS [facility] Stop: 10/29/19 21:59 Last Admin: 10/12/19 21:14 Dose: 150 mg Documented by: Vitamin B Complex (Vitamin B Complex) 1 tab PO QAM [facility] Stop: 10/30/19 08:59 Last Admin: 10/13/19 07:41 Dose: 1 tab Documented by: Vitamin D (Vitamin D3) 1,000 units PO QAM [facility] Stop: 10/30/19 08:59 Last Admin: 10/13/19 07:41 Dose: 1,000 units Documented by: Mental Health & Subst Abuse Tx Psychiatrist Name of Psychiatrist: [facility] - Dr. Carmen Waters Psychiatrist's Psychiatric Appointment Comment: [address], [address], [place] [address] Therapist Name of Therapist: none Therapist Release of Information: Signed Workers' Compensation Hearings Officer Name of Workers' Compensation Hearings Officer: COURTNEY Zuniga Phone Number for Workers' Compensation Hearings Officer: [phone] Case Management Appointment Comment: [address], [address], [place] Post Discharge Appointments Primary Care Physician Name Of Family Doctor: Sarah Drummond Primary Care Provider Appointment Comment: [address], [place] [address] Home Health Services Home Health Agency: [facility] Phone Number of Home Services Agency: [phone] Contact Information Discharge Discharge Address: [place] [address] Contact Information Comment: [facility]
[2019-10-13] MEDS: TRAZODONE HCL 50 MG TAB PO SCH (20:49)
[2019-10-13] MEDS: LITHIUM CARBONATE 300 MG TAB PO SCH (20:52)
[2019-10-14] MEDS: DOCUSATE SODIUM 100 MG CAP PO SCH ×2 (09:58→20:39)
[2019-10-14] MEDS: LORazepam 1 MG TAB PO SCH ×3 (09:58→20:39)
[2019-10-14] MEDS: PERPHENAZINE 2 MG TABLET PO SCH ×2 (09:58→20:39)
[2019-10-14] MEDS: VITAMIN B COMPLEX TAB PO SCH (09:59)
[2019-10-14] MEDS: CHOLECALCIFEROL 1,000 UNITS TAB PO SCH (09:59)
--- NOTE | 2019-10-14 10:11 | Psychiatric Progress Note ---
Date of Service October 14, 2019 Impression / Recommendations Impression 64-year-old female personal usp resident who has a history of chronic paranoid schizophrenia and presents with worsening psychosis in the context of multiple antipsychotic medication changes due to leukocytopenia. Continued inpatient psychiatric hospitalization is medically necessary, as attempts are being made to coordinate treatment plan with hematology. Plan is to review risk/benefit analysis of treating patient's schizophrenia with agents presumed to be inducing leukocytopenia. Patient has been restarted on titration of perphenazine, last CBC with differential obtained on 10/13. WBC - now 1.75; Neutrophils mildly decreased from 1.07 to 1.00. Will order every third day CBC's with differential for monitoring. In the context of holding her antipsychotic medication, she became more delusional. Perphenazine was restarted and titrated to 12mg BID - with some mild improvements since restart. Given patient's significant psychiatric history, there is concern for risk of harm to self or others if patient is discharged without appropriate medication plan to support overall health and wellness. Inpatient psychiatric treatment remains medically necessary, as patient continues to be at acute risk of harm to self or others due to persistent delusional beliefs causing her to feel unsafe and paranoia. (1) Chronic paranoid schizophrenia: 09/30 -continue current antipsychotic for now (perphenazine 12 mg every morning and 16 mg at bedtime) while getting information from her outpatient BODY ARTIST at the [facility] psych clinic regarding recent medication changes/side effects/symptoms. -Reportedly did well on perphenazine but had problems with ? leukocytopenia, and at some point saw a cruise agent -request those records and consider need for inpatient consult. -Continue home dose of lithium (trough level 0.4 today), Lorazepam 1 mg 3 times daily, hydroxyzine 25 mg 3 times daily, and trazodone 150 mg at bedtime. -Encourage patient to attend and participate in groups and therapy. -[facility] with [facility] and [facility] and involve them in treatment and discharge planning. 10/01 - After review of risks and benefits, patient is agreeable with titration fo perphenazine to 16mg BID - consider eventual need to return to augmenting agent (history shows favorable response to paliperidone and olanzapine - but both with concerns for leukocytopenia in the past) - Purcell titrated to 450mg qHS - as means to combat neutropenia - see below - Awaiting cruise agent records - Encourage continued participation in group and recreational therapies 10/02 -The patient continues to harbor poorly systematized delusional beliefs, primarily of paranoid content. For example, today she tells me that we are part of a "secret" world war that we dare not discussed. She continues to believe that her her residential facility ([facility]) may be trying to "put one over on [her]" and she is not sure that it is a safe place to live. She goes through a list of places where she has lived recently and identifies each of them as being a place where she is disinclined to feel safe. -We discussed what "paranoid" means and I tried to help her understand that it is likely that she will periodically have feelings of not being safe in various locations and that she it is not reasonable for her to expect to change community housing based solely on a sense that she is not safe. The patient said that she understood this and tends to agree. -Patient appears to be tolerating lithium carbonate 450 mg at bedtime. We will recheck her lithium level and her CBC with differential in the morning. Patient's most recent lithium level was 0.4. -Because of the leukopenia we are disinclined to rechallenge the patient with an atypical antipsychotic medication at the present time. However, the plan is to eventually restart either olanzapine or Invega, as indicated by laboratory data and her response to current treatment. -Patient notes that she has improved to the degree that her mood is "good" and she has not experienced any perceptual disturbances ("voices" and "visions") since arriving on the behavioral health unit. -The plan is to continue perphenazine 16 mg at bedtime, in combination with lithium carbonate as above. Material risks and anticipated benefits of both medications were reviewed with the patient today and she indicated understand ing. 10/03 lithium level 0.6, drop in absolute neutrophil count since last draw but lower previously. 10/05/19 feel need to continue antipsychotic as she is at risk for severe decompensation, will continue lithium given references provided below, and consult hematology for discussion and recommendations 10/06 - Continue to hold Trilafon at this time, though it is desire to resume an antipsychotic agent to prevent decompensation as above - Appreciate hematology recommendations; attempts made to review [id number] about re-start of Trilafon versus initiation of an alternative agent - unable to make connection via phone today - continue lithium as above, consider if further titration would be beneficial 10/07 - due to risk of severe decompensation and evidence that 3 days off pe rphenazine that psychotic sx are returning, despite risk of neutropenia from same med we will restart with rapid titration of perphenazine (4mg bid today, 8mg bid 10/08, and 12mg po bid 10/09, with likely return to prior higher doses of 12mgAM/16mg/hs over the days after that) as risk of inability to function at this time outweighs risk of neutropenia but further discussion wt hematology and patient overtime will be needed, but we need to maintain her capacity to the best of our ability to make that judgment as well as safety to self and others, patient was informed of this today and agrees, although again she is superficial unconcerned and pleasant about this 10/08 - Continue perphenazine titration as above - pt to receive 8mg BID today, with titration to 12mg BID tomorrow - Hematology contacted and appreciated ongoing presence in patient's complex case - Will order repeat lithium level for this evening - consider titration of lithium to 600mg tomorrow evening if level is reasonably within limits - Continue to encourage participation in group and recreational programming as tolerated 10/09 - Perphenazine titrated to 12mg BID today - dose prior to admission was 12mg qAM and 16mg qHS - With hematology on board, will need determine if it is necessary to retrial augmentation with paliperidone or other antipsychotic medication (as patient historically has not been stabilized on perphenazine alone, and has continued to verbalize delusional thoughts and paranoia on the unit). - Titrating lithium to 600mg this evening; trough level obtained last evening and was 0.6 - Pt continues to be superficially pleasant, with seemingly artificial cheerfulness - but also continues to verbalize delusional thought content to staff periodically 10/11 -Perphenazine was held yesterday, but will be resumed today at 12 mg twice daily. Recheck CBC with differential on 10/13/2019. 10/12 - Continue perphenazine 12mg BID, she continues to intermittently verbalize delusional thought content - CBC w/ diff ordered for tomorrow 10/13 - Continue perphenazine 12mg BID, ambulatory service representative from [facility] to visit today, plans to assess proximity to baseline now that antipsychotic medications have been resumed - CBC w/diff reviewed below - Purcell level due 10/14 10/14 - Continue current medication regimen - Obtain impression from [facility] staff regarding proximity to baseline - Purcell level to be drawn this evening (2) Leukocytopenia: 09/30 - WBC 2.6 and ANC 1.65 on admission. In 07/2019, ANC was is low at 0.85, and WBC 1.85. Get records from outpatient psychiatrist and cruise agent to clarify recent medication changes and thoughts regarding etiology. -Patient with 2 known previous episodes of leukocytopenia, thought to be caused by antipsychotic medication (Haldol and 2011 and olanzapine here in 2018). 10/01 - After review with patient's outpatient psychiatric prescriber, it appears lithium was being utilized as an adjunctive medication with thoughts it may counteract atypical antipsychotic-induced neutropenia - Several review articles found to support this theory, though most were directed toward clozapine-induced neutropenia specifically. - Basic explanation of this idea was provided to patient, who was agreeable with titration of lithium to 450mg qHS (lower dose adjustment as patient reporte d perceived fogginess since addition of lithium). Reference articles: - Jenny Molina., Sunita Wolfe., Zach, S., Anmol, S., & Ben, I. (2016). Continuing clozapine treatment with lithium in schizophrenic patients with neutropenia or leukopenia: brief review of literature with case reports. Therapeutic advances in psychopharmacology, 6(1), 7255. doi:10.1177/[id number] - Kimberly Robin, Jason Unger., Terrence Narayanan., Scarlett Rivera, Terrence Castrejon., Lucia Maloney., Anna, Noemi. (2009). Adjunctive use of lithium carbonate for the management of neutropenia in clozapine-treated children. Human psychopharmacology, 24(), 787034. doi:10.1002/hup.1056 10/02 -We will recheck the patient's CBC with differential in the morning. No current evidence of any infectious process, despite her leukopenia. 10/04 --CBC yesterday and today are both similar and consistent with lab draws in August. Chronic issue, previously attributed to paliperidone but clearly not resolving on trilafon. Trilafon packing labelling states should be held <1000 but she is already quite decompensated and not clear alternative. Will ask primary attending for second opinion, no records from outpatient hematology available today. 10/05 hematology consultation to discuss this catch-22 of treatment as she is at severe risk to self and others if she becomes psychiatrically decompensated and yet all antipsychotics can risk agranulocytosis, further she has limited medications that she does respond to. 10/06 and 10/07 - Appreciate hematology consultation - per recommendations, serologies for HBV, HCV, HIV, EBV, and an NASIR were ordered to rule out possible contributing factors for neutropenia - Suggesting other causes be ruled out, and determine risk/benefit analysis of continuing antipsychotic medications despite persistent leukocytopenia 10/08 - Serologies ordered per hematology recommendations - Negative results for Hepatitis C Ab screen and HIV screening. Results are pending for EBV and Hepatitis B screening - Pt was informed of negative screen for HIV on this date, verbalized understanding - Case reviewed via phone with consulting cruise agent. Unclear that i njections to stimulate production of WBCs could be considered given suspected antipsychotic-induced leukocytopenia; however, there are significant risks to patient and others if she is not able to receive appropriate treatment for her schizophrenia. - Plan is to discuss treatment options with cruise agent, may need to pursue ethics consultation to assist with risk/benefit analysis of her complicated treatment situation 10/09 - [id number] Consultation and Discussion with Hematology - Spoke with consulting cruise agent (Dr. Baumann - covering for Dr. Godoy) regarding patient's complicated situation. He verbalized understanding the patient's quality of life off antipsychotic medications is not ideal, and engaged in discussions regarding possible G-CSF therapy. He kindly offered to pursue prior authorization through his office, and stated he would report back with findings. Information regarding patient's past psychiatric history and need for regular antipsychotic therapy will be offered to further demonstrate need for action to improve white blood cell counts. It was reported a CBC with differential would likely be ordered prior to each injection if G-CSF therapy was pursued. On an inpatient basis, it is recommended that CBC with differential be obtained every 2 to 3 days, and more urgently if patient is reporting any signs or symptoms of infection. Agreed that if G-CSF could not be pursued that patient would likely require an ethics consultation to determine risk/benefit analysis of treating her complicated case. - Information above was explained to patient, who verbalized basic understanding. At this time, she is verbalizing willingness for injections if G-CSF therapy is pursued. She even supported willingness for daily injections if necessary. Of course, patient's willingness may wax and wane based off of her mental health, and will need to be reassessed further. - While G-CSF therapy is being explored, we will continue with titration of lithium based on documented outpatient treatment plan and reference articles listed above. Purcell level was obtained last evening, and was within low- therapeutic range at 0.6. Will titrate lithium to 600mg this evening, and recheck level of 10/14 10/13 - CBC w/diff ordered today - ANC remains low, but not in critical range as before. Value decreased from 1.07 (10/10) to 1.00 (10/13) - WBCs decreased from 2.17 (10/10) to 1.75 (10/13) - Continue to coordinate care with cruise agent 10/14 - Results from serology testing recommended by hematology were reviewed. Negative results were reported for Hepatitis C&B as well as HIV. NASIR screen was positive and suggested "low antibody level", which reportedly can be present in pre-clinical autoimmune diseases or normal individuals. Nonspecific "speckled cytoplasmic staining" was reported. Will communicate results with hematology team to determine clinical significance. - EBV IgG antibody testing was also positive, suggesting patient at some point was exposed to the Lukas-Britton Virus - will follow-up with EBV IgM to be added to lithium level this evening Inventory Assets Strengths: Willing for treatment, has outpatient providers Needs: Antipsychotic medication that she can tolerate, coordination with cruise agent given recent side effect issues Risk Factors Assessment Male: No : Yes Do You Have Access To A Gun?: No Health Problems: Yes Mental Health Diagnoses: Yes Substance Use Disorders: No Previous Attempt: Yes Previous Psychiatric Hospitalization: Yes Smoker: No Protective Factors Assessment Anglican Beliefs: No : No Responsible for Young Children: No Employed: No Stable Relationships: No Supportive Family: No Interval History Identifying Information KIM DOWLING is a 64-year-old F who currently lives in [facility], has a history of schizophrenia, and was admitted on 09/29/19 19:21 on a 201 voluntary commitment for psychosis with delusions and paranoia. Chief Complaint "I am good." Review of Systems Notes Constitutional: denied Cardiovascular: denied Respiratory: denied Gastrointestinal: denied Neurological: denied Psychiatric: denies symptoms other than stated above Total of at least 10 systems reviewed, pertinent positives as above and in HPI. Sleep Information Total Hours of Sleep: 6.5 Sleep Comments: pt on q-15 minute checks Meal Information Percent Meal Consumed - Breakfast: 100 Percent Meal Consumed - Lunch: 100 Percent Meal Consumed - Dinner: 100 Subjective Subjective Patient was seen & assessed and interval progress reviewed with treatment team. Staff report the patient seemed somewhat improved yesterday, stating she did not verbalize any delusional thought content last evening. Kavin Mendez [facility] ambulatory service representative unable to visit yesterday, anticipating visit today. Patient was seen today to assess progress since admission. She states that she is "good." Patient states she kept busy yesterday by attending group and playing games with peers. Patient specifically comments on a group last evening where they discussed "different kinds of fears." Upon further questioning, patient did not verbalize any specific fears or delusional believes leading to paranoia, stating only "I think I am afraid of flying." This provider did discuss hematology's recommendations for G-CSF therapy after discharge. This plan was reviewed with the patient, who remains agreeable with receiving injections to stimulate white blood cell production. When this information was reviewed, patient interrupted this provider and stated "you can just say HIV, I know that I have it." Patient was reminded by this provider that her test result was negative for HIV, and that at this point no one is suggesting that she is positive for the virus. Patient states "but I know people with HIV have low white blood cells, and have to take pills and other medications." This provider reviewed in basic terms the suspected pathology, that her leukocytopenia is induced by her antipsychotic medication. Treatment plan to combat this issue was reviewed again. Patient verbalized understanding, but it is not clear that she is convinced that she indeed tested negative for HIV. Physical Exam Psychiatric Orientation: alert, oriented x 3 and cooperative (With almost force cheerfuln ess) Apperance: appropriately dressed (wearing sweater and scrub pants) and appropriately groomed (Appearing less unkempt today) Eye Contact: good eye contact Motor Behavior: steady gait and station and no abnormal motor movements Speech: normal rate/rhythm/volume of speech Affect: + blunted affect (superficially pleasant, forced smiles) Mood: no depressed mood ("I'm fine") Thought Process: linear/logical thought process (linear, but not always logical) Thought Content: + delusions (ongoing, but appears less preoccupied with delusional thoughts) Suicidal Thoughts: denies suicidal thoughts and denies suicidal intent Homicidal Thoughts: denies homicidal thoughts Hallucinations: no auditory hallucinations and no visual hallucinations Cognition: attention grossly intact and language grossly intact Insight: + limited insight (chronic, as patient has a long history of this psychiatric condition) Judgement: + limited judgement (chronic, as patient has a long history of this psychiatric condition) Vital Signs (Past 24 Hours) Last Vital Signs Temp 36.8 C 10/14/19 06:24 Pulse 62 10/14/19 06:25 Resp 18 10/14/19 06:24 BP 99/64 L 10/14/19 06:25 Pulse Ox 100 09/29/19 19:33 Results & Data Current Inpatient Medications Current Inpatient Medications: Current Inpatient Medications Acetaminophen (Tylenol) 650 mg PO Q4H PRN PRN Reason: Headache or Minor Fever Stop: 10/29/19 19:46 Al Hydrox/Mg Hydrox/Simethicone (Maalox) 30 ml PO Q4H PRN PRN Reason: GI Upset Stop: 10/29/19 19:46 Bismuth Subsalicylate (Kaopectate) 15 ml PO PRN PRN PRN Reason: Loose Stool Stop: 10/29/19 19:46 Docusate Sodium (Colace) 100 mg PO BID [facility] Stop: 10/29/19 20:59 Last Admin: 10/14/19 09:58 Dose: 100 mg Documented by: Hydroxyzine HCl (Vistaril) 25 mg PO TID [facility] Stop: 10/29/19 20:59 Last Admin: 10/14/19 09:59 Dose: 25 mg Documented by: Purcell Carbonate (Purcell Carbonate) 600 mg PO HS [facility] Stop: 11/08/19 21:59 Last Admin: 10/13/19 20:52 Dose: 600 mg Documented by: Lorazepam (Ativan) 1 mg PO TID [facility] Stop: 10/29/19 20:59 Last Admin: 10/14/19 09:58 Dose: 1 mg Documented by: Magnesium Hydroxide (Milk Of Magnesia) 30 ml PO DAILY PRN PRN Reason: Constipation Stop: 10/29/19 19:46 Perphenazine (Trilafon) 16 mg PO BID [facility] Stop: 10/31/19 20:59 Last Admin: 10/03/19 21:29 Dose: 16 mg Documented by: Perphenazine (Trilafon) 12 mg PO BID [facility] Stop: 11/10/19 20:59 Last Admin: 10/14/19 09:58 Dose: 12 mg Documented by: Sennosides (Senokot) 8.6 mg PO BID PRN PRN Reason: Constipation Stop: 10/29/19 20:59 Last Admin: 10/01/19 18:15 Dose: 8.6 mg Documented by: Sodium Chloride ([place] Nasal) 1 - 2 sprays NA PRN PRN PRN Reason: Nasal Dryness/Congestion Stop: 10/29/19 19:46 Trazodone HCl (Desyrel) 150 mg PO HS [facility] Stop: 10/29/19 21:59 Last Admin: 10/13/19 20:49 Dose: 150 mg Documented by: Vitamin B Complex (Vitamin B Complex) 1 tab PO QAM [facility] Stop: 10/30/19 08:59 Last Admin: 10/14/19 09:59 Dose: 1 tab Documented by: Vitamin D (Vitamin D3) 1,000 units PO QAM [facility] Stop: 10/30/19 08:59 Last Admin: 10/14/19 09:59 Dose: 1,000 units Documented by: Mental Health & Subst Abuse Tx Psychiatrist Name of Psychiatrist: [facility] - Dr. Carmen Waters Psychiatrist's Psychiatric Appointment Comment: [address], [address], [place] [address] Therapist Name of Therapist: none Therapist Release of Information: Signed Sailing Instructor Name of Sailing Instructor: COURTNEY Zuniga Phone Number for Sailing Instructor: [phone] Case Management Appointment Comment: [address], [address], [facility] Post Discharge Appointments Primary Care Physician Name Of Family Doctor: Sarah - Dr. Drummond Primary Care Provider Appointment Comment: [address], [place] [address] Home Health Services Home Health Agency: [facility] Personal Intermediate Phone Number of Home Services Agency: [phone] Specialist Name of Specialist: [facility] Hematology - Dr. Baumann Time of Appointment with Specialist: Initial appt for injection will be date of d/c Specialty Appointment Comment: [facility], [address], [facility] Contact Information Discharge Discharge Address: [address] [place] [address] CINTHYA Sherman [address] Contact Information Comment: [facility]
[2019-10-14] MEDS: TRAZODONE HCL 50 MG TAB PO SCH (20:40)
[2019-10-14] MEDS: LITHIUM CARBONATE 300 MG TAB PO SCH (20:42)
[2019-10-15] MEDS: PERPHENAZINE 2 MG TABLET PO SCH ×2 (08:41→20:53)
[2019-10-15] MEDS: LORazepam 1 MG TAB PO SCH ×3 (08:41→20:53)
[2019-10-15] MEDS: DOCUSATE SODIUM 100 MG CAP PO SCH ×2 (08:41→20:53)
[2019-10-15] MEDS: CHOLECALCIFEROL 1,000 UNITS TAB PO SCH (08:42)
[2019-10-15] MEDS: VITAMIN B COMPLEX TAB PO SCH (08:42)
--- NOTE | 2019-10-15 09:16 | Psychiatric Progress Note ---
Date of Service October 15, 2019 Impression / Recommendations Impression 64-year-old female personal half-way resident who has a history of chronic paranoid schizophrenia and presents with worsening psychosis in the context of multiple antipsychotic medication changes due to leukocytopenia. Continued inpatient psychiatric hospitalization is medically necessary, as attempts are being made to coordinate treatment plan with hematology. Plan is to review risk/benefit analysis of treating patient's schizophrenia with agents presumed to be inducing leukocytopenia. Patient has been restarted on titration of perphenazine, last CBC with differential obtained on 10/13. WBC - now 1.75; Neutrophils mildly decreased from 1.07 to 1.00. Will order every third day CBC's with differential for monitoring. In the context of holding her antipsychotic medication, she became more delusional. Perphenazine was restarted and titrated to 12mg BID - with some mild improvements since restart. Geophysical Observer from [facility] visited the patient yesterday and has been involved in discharge planning conversations. It is reported that patient could be discharged tomorrow, and hematology appointments are being scheduled to allow her to receive her first G-CSF therapy injection. (1) Chronic paranoid schizophrenia: 09/30 -continue current antipsychotic for now (perphenazine 12 mg every morning and 16 mg at bedtime) while getting information from her outpatient DIGITAL PRODUCTION OPERATOR at the [facility] psych clinic regarding recent medication changes/side effects/symptoms. -Reportedly did well on perphenazine but had problems with ? leukocytopenia, and at some point saw a analog device designer -request those records and consider need for inpatient consult. -Continue home dose of lithium (trough level 0.4 today), Lorazepam 1 mg 3 times daily, hydroxyzine 25 mg 3 times daily, and trazodone 150 mg at bedtime. -Encourage patient to attend and participate in groups and therapy. -Coordinate care with [facility] staff and [facility] and involve them in treatment and discharge planning. 10/01 - After review of risks and benefits, patient is agreeable with titration fo perphenazine to 16mg BID - consider eventual need to return to augmenting agent (history shows favorable response to paliperidone and olanzapine - but both with concerns for leukocytopenia in the past) - Newfield titrated to 450mg qHS - as means to combat neutropenia - see below - Awaiting analog device designer records - Encourage continued participation in group and recreational therapies 10/02 -The patient continues to harbor poorly systematized delusional beliefs, primarily of paranoid content. For example, today she tells me that we are part of a "secret" world war that we dare not discussed. She continues to believe that her her residential facility ([facility]) may be trying to "put one over on [her]" and she is not sure that it is a safe place to live. She goes through a list of places where she has lived recently and identifies each of them as being a place where she is disinclined to feel safe. -We discussed what "paranoid" means and I tried to help her understand that it is likely that she will periodically have feelings of not being safe in various locations and that she it is not reasonable for her to expect to change community housing based solely on a sense that she is not safe. The patient said that she understood this and tends to agree. -Patient appears to be tolerating lithium carbonate 450 mg at bedtime. We will recheck her lithium level and her CBC with differential in the morning. Patient's most recent lithium level was 0.4. -Because of the leukopenia we are disinclined to rechallenge the patient with an atypical antipsychotic medication at the present time. However, the plan is to eventually restart either olanzapine or Invega, as indicated by laboratory d gal and her response to current treatment. -Patient notes that she has improved to the degree that her mood is "good" and she has not experienced any perceptual disturbances ("voices" and "visions") since arriving on the behavioral health unit. -The plan is to continue perphenazine 16 mg at bedtime, in combination with lithium carbonate as above. Material risks and anticipated benefits of both medications were reviewed with the patient today and she indicated understanding. 10/03 lithium level 0.6, drop in absolute neutrophil count since last draw but lower previously. 10/05/19 feel need to continue antipsychotic as she is at risk for severe decompensation, will continue lithium given references provided below, and consult hematology for discussion and recommendations 10/06 - Continue to hold Trilafon at this time, though it is desire to resume an antipsychotic agent to prevent decompensation as above - Appreciate hematology recommendations; attempts made to review [id number] about re-start of Trilafon versus initiation of an alternative agent - unable to make connection via phone today - continue lithium as above, consider if further titration would be beneficial 10/07 - due to risk of severe decompensation and evidence that 3 days off perphenazine that psychotic sx are returning, despite risk of neutropenia from same med we will restart with rapid titration of perphenazine (4mg bid today, 8mg bid 10/08, and 12mg po bid 10/09, with likely return to prior higher doses of 12mgAM/16mg/hs over the days after that) as risk of inability to function at this time outweighs risk of neutropenia but further discussion wtih hematology and patient overtime will be needed, but we need to maintain her capacity to the best of our ability to make that judgment as well as safety to self and others, patient was informed of this today and agrees, although again she is superficial unconcerned and pleasant about this 10/08 - Continue perphenazine titration as above - pt to receive 8mg BID today, with titration to 12mg BID tomorrow - Hematology contacted and appreciated ongoing presence in patient's complex case - Will order repeat lithium level for this evening - consider titration of lithium to 600mg tomorrow evening if level is reasonably within limits - Continue to encourage participation in group and recreational programming as tolerated 10/09 - Perphenazine titrated to 12mg BID today - dose prior to admission was 12mg qAM and 16mg qHS - With hematology on board, will need determine if it is necessary to retrial augmentation with paliperidone or other antipsychotic medication (as patient historically has not been stabilized on perphenazine alone, and has continued to verbalize delusional thoughts and paranoia on the unit). - Titrating lithium to 600mg this evening; trough level obtained last evening and was 0.6 - Pt continues to be superficially pleasant, with seemingly artificial cheerfulness - but also continues to verbalize delusional thought content to staff periodically 10/11 -Perphenazine was held yesterday, but will be resumed today at 12 mg twice daily. Recheck CBC with differential on 10/13/2019. 10/12 - Continue perphenazine 12mg BID, she continues to intermittently verbalize delusional thought content - CBC w/ diff ordered for tomorrow 10/13 - Continue perphenazine 12mg BID, access representative from [facility] to visit today, plans to assess proximity to baseline now that antipsychotic medications have been resumed - CBC w/diff reviewed below - Newfield level due 10/14 10/14 - Continue current medication regimen - Obtain impression from [facility] staff regarding proximity to baseline - Newfield level to be drawn this evening 10/15 - Continue current medication regimen - [facility] staff reporting patient appears appropriate for return to their facility - anticipating discharge tomorrow morning - Newfield level drawn and within therapeutic range - 0.8 (2) Leukocytopenia: 09/30 - WBC 2.6 and ANC 1.65 on admission. In 07/2019, ANC was is low at 0.85, and WBC 1.85. Get records from outpatient psychiatrist and analog device designer to clarify recent medication changes and thoughts regarding etiology. -Patient with 2 known previous episodes of leukocytopenia, thought to be caused by antipsychotic medication (Haldol and 2011 and olanzapine here in 2018). 10/01 - After review with patient's outpatient psychiatric prescriber, it appears lithium was being utilized as an adjunctive medication with thoughts it may counteract atypical antipsychotic-induced neutropenia - Several review articles found to support this theory, though most were directed toward clozapine-induced neutropenia specifically. - Basic explanation of this idea was provided to patient, who was agreeable with titration of lithium to 450mg qHS (lower dose adjustment as patient reported perceived fogginess since addition of lithium). Reference articles: - Jenny Molina., Sunita Wolfe., Zach, S., Anmol, S., & Bert Contreras. (2016). Continuing clozapine treatment with lithium in schizophrenic patients with neutropenia or leukopenia: brief review of literature with case reports. Therapeutic advances in psychopharmacology, 6(1), 7321. doi:10.1177/[id number] - Kimberly Robin, Jason Unger., Tiffany Narayanan, Scarlett Rivera, Terrence Castrejon., Haider, R., Gokristopher, N. (2009). Adjunctive use of lithium carbonate for the management of neutropenia in clozapine-treated children. Human psychopharmacology, 24(6), 350533. doi:10.1002/hup.1056 10/02 -We will recheck the patient's CBC with differential in the morning. No current evidence of any infectious process, despite her leukopenia. 10/04 --CBC yesterday and today are both similar and consistent with lab draws in August. Chronic issue, previously attributed to paliperidone but clearly not resolving on trilafon. Trilafon packing labelling states should be held <1000 but she is already quite decompensated and not clear alternative. Will ask primary attending for second opinion, no records from outpatient hematology available today. 10/05 hematology consultation to discuss this catch-22 of treatment as she is at severe risk to self and others if she becomes psychiatrically decompensated and yet all antipsychotics can risk agranulocytosis, further she has limited medications that she does respond to. 10/06 and 10/07 - Appreciate hematology consultation - per recommendations, serologies for HBV, HCV, HIV, EBV, and an NASIR were ordered to rule out possible contributing fa ctors for neutropenia - Suggesting other causes be ruled out, and determine risk/benefit analysis of continuing antipsychotic medications despite persistent leukocytopenia 10/08 - Serologies ordered per hematology recommendations - Negative results for Hepatitis C Ab screen and HIV screening. Results are pending for EBV and Hepatitis B screening - Pt was informed of negative screen for HIV on this date, verbalized understanding - Case reviewed via phone with consulting analog device designer. Unclear that injections to stimulate production of WBCs could be considered given suspected antipsychotic-induced leukocytopenia; however, there are significant risks to patient and others if she is not able to receive appropriate treatment for her schizophrenia. - Plan is to discuss treatment options with analog device designer, may need to pursue ethics consultation to assist with risk/benefit analysis of her complicated treatment situation 10/09 - [id number] Consultation and Discussion with Hematology - Spoke with consulting analog device designer (Dr. Baumann - covering for Dr. Godoy) regarding patient's complicated situation. He verbalized understanding the patient's quality of life off antipsychotic medications is not ideal, and engaged in discussions regarding possible G-CSF therapy. He kindly offered to pursue prior authorization through his office, and stated he would report back with findings. Information regarding patient's past psychiatric history and need for regular antipsychotic therapy will be offered to further demonstrate need for action to improve white blood cell counts. It was reported a CBC with differential would likely be ordered prior to each injection if G-CSF therapy was pursued. On an inpatient basis, it is recommended that CBC with differ ential be obtained every 2 to 3 days, and more urgently if patient is reporting any signs or symptoms of infection. Agreed that if G-CSF could not be pursued that patient would likely require an ethics consultation to determine risk/benefit analysis of treating her complicated case. - Information above was explained to patient, who verbalized basic understanding. At this time, she is verbalizing willingness for injections if G-CSF therapy is pursued. She even supported willingness for daily injections if necessary. Of course, patient's willingness may wax and wane based off of her mental health, and will need to be reassessed further. - While G-CSF therapy is being explored, we will continue with titration of lithium based on documented outpatient treatment plan and reference articles listed above. Newfield level was obtained last evening, and was within low- therapeutic range at 0.6. Will titrate lithium to 600mg this evening, and recheck level of 10/14 10/13 - CBC w/diff ordered today - ANC remains low, but not in critical range as before. Value decreased from 1.07 (10/10) to 1.00 (10/13) - WBCs decreased from 2.17 (10/10) to 1.75 (10/13) - Continue to coordinate care with analog device designer 10/14 - Results from serology testing recommended by hematology were reviewed. Negative results were reported for Hepatitis C&B as well as HIV. NASIR screen was positive and suggested "low antibody level", which reportedly can be present in pre-clinical autoimmune diseases or normal individuals. Nonspecific "speckled cytoplasmic staining" was reported. Will communicate results with hematology team to determine clinical significance. - EBV IgG antibody testing was also positive, suggesting patient at some point was exposed to the Lukas-Britton Virus - will follow-up with EBV IgM to be added to lithium level this evening 10/15 - Appointments to be scheduled with outpatient hematology, to hopefully allow for G-CSF therapy injection tomorrow after discharge from our facility Inventory Assets Strengths: Willing for treatment, has outpatient providers Needs: Antipsychotic medication that she can tolerate, coordination with analog device designer given recent side effect issues Risk Factors Assessment Male: No : Yes Do You Have Access To A Gun?: No Health Problems: Yes Mental Health Diagnoses: Yes Substance Use Disorders: No Previous Attempt: Yes Previous Psychiatric Hospitalization: Yes Smoker: No Protective Factors Assessment Baptist Beliefs: No : No Responsible for Young Children: No Employed: No Stable Relationships: No Supportive Family: No Interval History Identifying Information KIM DOWLING is a 64-year-old F who currently lives in [facility], has a history of schizophrenia, and was admitted on 09/29/19 19:21 on a 201 voluntary commitment for psychosis with delusions and paranoia. Chief Complaint "I feel fine. Just listening to all this talk about the impeachment." Review of Systems Notes Constitutional: denied Cardiovascular: denied Respiratory: denied Gastrointestinal: denied Neurological: denied Psychiatric: denies symptoms other than stated above Total of at least 10 systems reviewed, pertinent positives as above and in HPI. Sleep Information Total Hours of Sleep: 6 Sleep Comments: toileted at 0330 afterward she asked staff to weight her. she was able to wait till later this am to get weighed Meal Information Percent Meal Consumed - Breakfast: 100 Percent Meal Consumed - Lunch: 100 Percent Meal Consumed - Dinner: 100 Subjective Subjective Patient was seen & assessed and interval progress reviewed with nursing and social work. Staff reports the patient, for the most part, has been appropriate in interactions with peers. It is reported that she occasionally verbalizes delusional thought content within the group setting, but responds to redirection. It is reported that aftercare arrangements are in process, hopefully patient will receive G-CSF injection after anticipated discharge tomorrow. Communication with [facility] staff has been ongoing, and they are able to take patient back to their facility tomorrow. Patient was seen today to assess progress since admission. She states that she has been watching the news about the impeachment, and states "I think we should keep him, after all he won the war." Patient shares some thoughts related to delusional belief that there was a war in 2009, in which [place] was bombed. She states the rest of the details are "classified." Aside from the statements, patient verbalizes awareness of her discharge plans. She is understanding that she is scheduled for injections every 2 weeks to treat "terribly low white blood cell count." She remains agreeable to receive these injections, and was informed she would discuss this treatment further at her hematology appointment. Patient does state that she is "excited" to be returning home tomorrow, even asking if she can begin packing today. Patient denies any safety concerns related to returnin g back to [facility], stating "I feel pretty good about it, I have a feeling that the danger has now passed." Patient denies suicidal ideation as well as other needs or concerns today. Physical Exam Psychiatric Orientation: alert, oriented x 3 and cooperative Apperance: appropriately dressed (Still in sleepwear), + disheveled (Hair is mildly unkempt) and appeared stated age Eye Contact: good eye contact Motor Behavior: steady gait and station and no abnormal motor movements Speech: normal rate/rhythm/volume of speech Affect: + blunted affect (forced smiles throughout visit) Mood: no depressed mood and no anxious mood Thought Process: goal directed thought process Thought Content: + delusions (intermittent verbalization of delusional beliefs); not paranoid Delusions reported are consistent with prior reports, and at this point in her long psychiatric history are likely fixed. She remains responsive to redirection. Suicidal Thoughts: denies suicidal thoughts and denies suicidal intent Homicidal Thoughts: denies homicidal thoughts Hallucinations: no auditory hallucinations and no visual hallucinations Cognition: attention grossly intact and language grossly intact Insight: + limited insight (chronic ) Judgement: + limited judgement (chronic) Vital Signs (Past 24 Hours) Last Vital Signs Temp 36.4 C L 10/15/19 06:33 Pulse 63 10/15/19 06:34 Resp 16 10/15/19 06:33 BP 115/75 10/15/19 06:34 Pulse Ox 100 09/29/19 19:33 Results & Data Laboratory Results Laboratory Results - last 24 hr 10/14/19 10/14/19 20:00 20:00 Newfield 0.8 EBV Capsid Ag IgM Ab Pending Current Inpatient Medications Current Inpatient Medications: Current Inpatient Medications Acetaminophen (Tylenol) 650 mg PO Q4H PRN PRN Reason: Headache or Minor Fever Stop: 10/29/19 19:46 Al Hydrox/Mg Hydrox/Simethicone (Maalox) 30 ml PO Q4H PRN PRN Reason: GI Upset Stop: 10/29/19 19:46 Bismuth Subsalicylate (Kaopectate) 15 ml PO PRN PRN PRN Reason: Loose Stool Stop: 10/29/19 19:46 Docusate Sodium (Colace) 100 mg PO BID [facility] Stop: 10/29/19 20:59 Last Admin: 10/15/19 08:41 Dose: 100 mg Documented by: Hydroxyzine HCl (Vistaril) 25 mg PO TID [facility] Stop: 10/29/19 20:59 Last Admin: 10/15/19 08:42 Dose: 25 mg Documented by: Newfield Carbonate (Newfield Carbonate) 600 mg PO HS [facility] Stop: 11/08/19 21:59 Last Admin: 10/14/19 20:42 Dose: 600 mg Documented by: Lorazepam (Ativan) 1 mg PO TID [facility] Stop: 10/29/19 20:59 Last Admin: 10/15/19 08:41 Dose: 1 mg Documented by: Magnesium Hydroxide (Milk Of Magnesia) 30 ml PO DAILY PRN PRN Reason: Constipation Stop: 10/29/19 19:46 Perphenazine (Trilafon) 16 mg PO BID [facility] Stop: 10/31/19 20:59 Last Admin: 10/03/19 21:29 Dose: 16 mg Documented by: Perphenazine (Trilafon) 12 mg PO BID [facility] Stop: 11/10/19 20:59 Last Admin: 10/15/19 08:41 Dose: 12 mg Documented by: Sennosides (Senokot) 8.6 mg PO BID PRN PRN Reason: Constipation Stop: 10/29/19 20:59 Last Admin: 10/01/19 18:15 Dose: 8.6 mg Documented by: Sodium Chloride (Juarez Nasal) 1 - 2 sprays NA PRN PRN PRN Reason: Nasal Dryness/Congestion Stop: 10/29/19 19:46 Trazodone HCl (Desyrel) 150 mg PO [facility] Stop: 10/29/19 21:59 Last Admin: 10/14/19 20:40 Dose: 150 mg Documented by: Vitamin B Complex (Vitamin B Complex) 1 tab PO QAM [facility] Stop: 10/30/19 08:59 Last Admin: 10/15/19 08:42 Dose: 1 tab Documented by: Vitamin D (Vitamin D3) 1,000 units PO QAM [facility] Stop: 10/30/19 08:59 Last Admin: 10/15/19 08:42 Dose: 1,000 units Documented by: Mental Health & Subst Abuse Tx Psychiatrist Name of Psychiatrist: [facility] - Dr. Carmen Waters Psychiatrist's Date of Appointment with Psychiatrist: 11/04/19 Time of Appointment with Psychiatrist: 10:30 Psychiatric Appointment Comment: [address], [address], [place] [address] Therapist Name of Therapist: none Therapist Release of Information: Signed Medical Reviewer Name of Medical Reviewer: COURTNEY Calloway Cheri Efrain Phone Number for Medical Reviewer: [phone] Date of Appointment with Medical Reviewer: 10/19/19 Time of Appointment with Medical Reviewer: 4:30pm Case Management Appointment Comment: [address], [address] Post Discharge Appointments Primary Care Physician Name Of Family Doctor: Sarah - Dr. Drummond Primary Care Provider Appointment Comment[facility] [address] [place] [address] Home Health Services Home Health Agency: [facility] Phone Number of Home Services Agency: [phone] Specialist Name of Specialist: Hematology - Dr. Baumann Phone Number for Specialist: [phone] Date of Appointment with Specialist: 10/16/19 Time of Appointment with Specialist: 11:45am Specialty Appointment Comment: [facility] [address], back entrance [facility] Other #1: Name of Aftercare Appointment: Dr. Burdick, Hematology, [facility] Phone Number of Aftercare Appointment: [phone] Date of Aftercare Appointment: 11/06/19 Time of Aftercare Appointment: 9:10 Aftercare Appointment Comment: Dr. Valenzuela at 9:10 with injection immediately after Contact Information Discharge Discharge Address: [address] [place] [address] [place] [address] Contact Information Comment: [facility]
[2019-10-15] MEDS: LITHIUM CARBONATE 300 MG TAB PO SCH (20:54)
[2019-10-15] MEDS: TRAZODONE HCL 50 MG TAB PO SCH (20:54)
[2019-10-16 06:56] VITALS: BP 121/67; PULSE 55; TEMP 97.9
[2019-10-16 07:30] LABS: Hematocrit (blood only) 36.5 % (37-47); Hemoglobin 12.4 g/dL (12.0-16.0); Mean Corpuscular Hemoglobin 30.3 pg (25-34); Mean Corpuscular Volume 89.2 fL (80-100); Platelet Count 150 K/uL (130-400); RDW Coefficient of Variation 13.1 % (11.5-14.5); RDW Standard Deviation 42.5 fL (36.4-46.3); Red Blood Count 4.09 M/uL (4.2-5.4); White Blood Count 1.59 K/uL (4.8-10.8)
[2019-10-16 08:05] LABS: Lymphocytes # (auto) 0.54 K/uL (1.2-3.4); Monocytes # (auto) 0.14 K/uL (0.11-0.59); Monocytes % (auto) 8.8 %; Neutrophils # (auto) 0.91 K/uL (1.4-6.5); Neutrophils % (auto) 57.2 %
[2019-10-16] MEDS: CHOLECALCIFEROL 1,000 UNITS TAB PO SCH (08:40)
[2019-10-16] MEDS: VITAMIN B COMPLEX TAB PO SCH (08:40)
[2019-10-16] MEDS: LORazepam 1 MG TAB PO SCH (08:41)
[2019-10-16] MEDS: PERPHENAZINE 2 MG TABLET PO SCH (08:41)
[2019-10-16] MEDS: DOCUSATE SODIUM 100 MG CAP PO SCH (08:41)
--- NOTE | 2019-10-16 12:05 | Discharge Summary ---
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 recommendations; attempts made to review provider-to- provider about re-start of Trilafon versus initiation of an alternative agent - unable to make connection via phone today - continue lithium as above, consider if further titration would be benefic ial 10/07 - due to risk of severe decompensation and evidence that 3 days off perphenazine that psychotic sx are returning, despite risk of neutropenia from same med we will restart with rapid titration of perphenazine (4mg bid today, 8mg bid 10/08, and 12mg po bid 10/09, with likely return to prior higher doses of 12mgAM/16mg/hs over the days after that) as risk of inability to function at this time outweighs risk of neutropenia but further discussion wtih hematology and patient overtime will be needed, but we need to maintain her capacity to the best of our ability to make that judgment as well as safety to self and others, patient was informed of this today and agrees, although again she is superficial unconcerned and pleasant about this 10/08 - Continue perphenazine titration as above - pt to receive 8mg BID today, with titration to 12mg BID tomorrow - Hematology contacted and appreciated ongoing presence in patient's complex case - Will order repeat lithium level for this evening - consider titration of lithium to 600mg tomorrow evening if level is reasonably within limits - Continue to encourage participation in group and recreational programming as tolerated 10/09 - Perphenazine titrated to 12mg BID today - dose prior to admission was 12mg qAM and 16mg qHS - With hematology on board, will need determine if it is necessary to retrial augmentation with paliperidone or other antipsychotic medication (as patient historically has not been stabilized on perphenazine alone, and has continued to verbalize delusional thoughts and paranoia on the unit). - Titrating lithium to 600mg this evening; trough level obtained last evening and was 0.6 - Pt continues to be superficially pleasant, with seemingly artificial cheerfulness - but also continues to verbalize delusional thought content to staff periodically 10/11 -Perphenazine was held yesterday, but will be resumed today at 12 mg twice daily. Recheck CBC with differential on 10/13/2019. 10/12 - Continue perphenazine 12mg BID, she continues to intermittently verbalize delusional thought content - CBC w/ diff ordered for tomorrow 10/13 - Continue perphenazine 12mg BID, electronics parts sales representative from [facility] to visit today, plans to assess proximity to baseline now that antipsychotic medications have been resumed - CBC w/diff reviewed below - [facility] level due 10/14 10/14 - Continue current medication regimen - Obtain impression from [facility] staff regarding proximity to baseline - [facility] level to be drawn this evening 10/15 - Continue current medication regimen - [facility] staff reporting patient appears appropriate for return to their facility - anticipating discharge tomorrow morning - [facility] Jacob level drawn and within therapeutic range - 0.8 10/16 -Continue current medication regimen. The patient has remained stable at perphenazine 12 mg twice a day and will be discharged at this dose. She also will continue lithium carbonate (current therapeutic level) for both mood st abilization and to promote white blood cell margination. (2) Leukocytopenia: 09/30 - WBC 2.6 and ANC 1.65 on admission. In 07/2019, ANC was is low at 0.85, and WBC 1.85. Get records from outpatient psychiatrist and program engagement director to clarify recent medication changes and thoughts regarding etiology. -Patient with 2 known previous episodes of leukocytopenia, thought to be caused by antipsychotic medication (Haldol and 2011 and olanzapine here in 2018). 10/01 - After review with patient's outpatient psychiatric prescriber, it appears lithium was being utilized as an adjunctive medication with thoughts it may counteract atypical antipsychotic-induced neutropenia - Several review articles found to support this theory, though most were directed toward clozapine-induced neutropenia specifically. - Basic explanation of this idea was provided to patient, who was agreeable with titration of lithium to 450mg qHS (lower dose adjustment as patient reported perceived fogginess since addition of lithium). Reference articles: - Jenny Molina., Sunita Wolfe., Sharifa Serrano., Tulio Corea, & Barbara Contreras (2016). Continuing clozapine treatment with lithium in schizophrenic patients with neutropenia or leukopenia: brief review of literature with case reports. Therapeutic advances in psychopharmacology, 6(1), 3337. doi:10.1177/2045 [id number] - Zoey Robin., Jason Unger., Terrence Narayanan., Adam Rivera., Terrence Castrejon., Lucia Maloney., Noemi Castillo. (2009). Adjunctive use of lithium carbonate for the management of neutropenia in clozapine-treated children. Human psychopharmacology, 24(7), 848328. doi:10.1002/hup.1056 10/02 -We will recheck the patient's CBC with differential in the morning. No current evidence of any infectious process, despite her leukopenia. 10/04 --CBC yesterday and today are both similar and consistent with lab draws in August. Chronic issue, previously attributed to paliperidone but clearly not resolving on trilafon. Trilafon packing labelling states should be held <1000 but she is already quite decompensated and not clear alternative. Will ask primary attending for second opinion, no records from outpatient hematology available today. 10/05 hematology consultation to discuss this catch-22 of treatment as she is at severe risk to self and others if she becomes psychiatrically decompensated and yet all antipsychotics can risk agranulocytosis, further she has limited medications that she does respond to. 10/06 and 10/07 - Appreciate hematology consultation - per recommendations, serologies for HBV, HCV, HIV, EBV, and an NASIR were ordered to rule out possible contributing factors for neutropenia - Suggesting other causes be ruled out, and determine risk/benefit analysis of continuing antipsychotic medications despite persistent leukocytopenia 10/08 - Serologies ordered per hematology recommendations - Negative results for Hepatitis C Ab screen and HIV screening. Results are pending for EBV and Hepatitis B screening - Pt was informed of negative screen for HIV on this date, verbalized understanding - Case reviewed via phone with consulting program engagement director. Unclear that injections to stimulate production of WBCs could be considered given suspected antipsychotic-induced leukocytopenia; however, there are significant risks to patient and others if she is not able to receive appropriate treatment for her schizophrenia. - Plan is to discuss treatment options with program engagement director, may need to pursue ethics consultation to assist with risk/benefit analysis of her complicated treatment situation 10/09 - Qvxe-[id number]-Chta Consultation and Discussion with Hematology - Spoke with consulting program engagement director (Dr. Baumann - covering for Dr. Godoy) regarding patient's complicated situation. He verbalized understanding the patient's quality of life off antipsychotic medications is not ideal, and engaged in discussions regarding possible G-CSF therapy. He kindly offered to pursue prior authorization through his office, and stated he would report back with findings. Information regarding patient's past psychiatric history and need for regular antipsychotic therapy will be offered to further demonstrate need for action to improve white blood cell counts. It was reported a CBC with differential would likely be ordered prior to each injection if G-CSF therapy was pursued. On an inpatient basis, it is recommended that CBC with differential be obtained every 2 to 3 days, and more urgently if patient is reporting any signs or symptoms of infection. Agreed that if G-CSF could not be pursued that patient would likely require an ethics consultation to determine risk/benefit analysis of treating her complicated case. - Information above was explained to patient, who verbalized basic understanding. At this time, she is verbalizing willingness for injections if G-CSF therapy is pursued. She even supported willingness for daily injections if necessary. Of course, patient's willingness may wax and wane based off of her mental health, and will need to be reassessed further. - While G-CSF therapy is being explored, we will continue with titration of lithium based on documented outpatient treatment plan and reference articles listed above. [facility] Jacob level was obtained last evening, and was within low- therapeutic range at 0.6. Will titrate lithium to 600mg this evening, and recheck level of 10/14 10/13 - CBC w/diff ordered today - ANC remains low, but not in critical range as before. Value decreased from 1.07 (10/10) to 1.00 (10/13) - WBCs decreased from 2.17 (10/10) to 1.75 (10/13) - Continue to coordinate care with program engagement director 10/14 - Results from serology testing recommended by hematology were reviewed. N egative results were reported for Hepatitis C&B as well as HIV. NASIR screen was positive and suggested "low antibody level", which reportedly can be present in pre-clinical autoimmune diseases or normal individuals. Nonspecific "speckled cytoplasmic staining" was reported. Will communicate results with hematology team to determine clinical significance. - EBV IgG antibody testing was also positive, suggesting patient at some point was exposed to the Lukas-Britton Virus - will follow-up with EBV IgM to be added to lithium level this evening 10/15 - Appointments to be scheduled with outpatient hematology, to hopefully allow for G-CSF therapy injection tomorrow after discharge from our facility 10/16 -The patient's neutrophil count this morning was 0.91. She remains asymptomatic, -The plan is for the patient to begin the medication Neulasta to treat her neutropenia. She will be seen in an outpatient appointment and the [facility] by program engagement director today, following discharge. -The patient is aware of her low white blood cell count in the risks associated with this. She also tells us he understands the risks of not taking her antipsychotic medication, and assures us that her intent is to cooperate fully with the program engagement director. -Yesterday, the patient told us that she was assuming that we were telling her that she was HIV because we had let her know that there were certain laboratory test that needed to be completed before she could seen in the hematology outpatient office for the above medication. It took some reassurances on our part, but today the patient is able to correctly explain the reason for the tests and the reason for the medication. Mental Health & Subst Abuse Tx Psychiatrist Name of Psychiatrist: [facility] - Dr. Carmen Waters Psychiatrist's Date of Appointment with Psychiatrist: 11/04/19 Time of Appointment with Psychiatrist: 10:30 Psychiatric Appointment Comment: [address], [address], [place] [address] Therapist Name of Therapist: none Therapist Release of Information: Signed Coal Digger Name of Coal Digger: COURTNEY Zuniga Phone Number for Coal Digger: [phone] Date of Appointment with Coal Digger: 10/19/19 Time of Appointment with Coal Digger: 4:30pm Case Management Appointment Comment: [address], [address], [place] Post Discharge Appointments Primary Care Physician Name Of Family Doctor: Sarah Drummond Primary Care Provider Appointment Comment: As needed [address], [place], [place] Primary Care Release of Information: Obtained, Reviewed and Signed Home Health Services Home Health Agency: [facility] [employer] [facility] Phone Number of Home Services Agency: [phone] Specialist Name of Specialist: Hematology - injection Phone Number for Specialist: [phone] Date of Appointment with Specialist: 10/16/19 Time of Appointment with Specialist: 11:45am Specialty Appointment Comment: [facility] [address], back entrance [facility] Specialist Release of Information: Obtained, Reviewed and Signed Contact Information Discharge Discharge Address: [address] [place] [address] C[place] Sherman [address] Contact Information Comment: [facility] Discharge Plan Discharge Items Patient Disposition: [facility] Reason For Visit: PARANOID SCHIZOPHRENIA Discharge Diagnosis: Schizophrenia Activity: Resume your previous activity Non-emergency contact: Psychiatrist, Therapist and [place] Call non-emergency contact if: you have any medication questions and your symptoms worsen Follow-up/Referrals: Andrea Vale [Primary Care Provider] - Diet: Regular Addtl Attending Provider Instructions: Keep your appointments with [facility] Hematology for ongoing treatment of your low white blood cell count. Pending Studies at Discharge: No Stand-Alone Forms: My [facility], Smoking Cessation, Suicide Prevention Resources Skilled Items Patient informed of condition?: Yes DNR: No Discharge Level of Care: Other Communicable Disease: No Discharge Prognosis: Stable Lines: None Urinary Catheter: No Medications and DC Order Prescriptions: New trazodone 50 mg Tablet 150 mg PO HS Qty: 90 RF: 0 hydroxyzine HCl 25 mg Tablet 25 mg PO TID Qty: 90 RF: 0 lorazepam 1 mg Tablet 1 mg PO TID Qty: 90 RF: 0 lithium carbonate 300 mg Tablet 600 mg PO HS Qty: 60 RF: 0 perphenazine 4 mg tablet 12 mg PO BID Qty: 180 RF: 0 Continued sennosides [senna] 8.6 mg Tablet 8.6 mg PO BID PRN (Reason: Constipation) RF: 0 vitamin B complex Tablet 1 tab PO QAM RF: 0 Mucinex DM 30-600 mg Tablet Extended Release 12 Hr 1 tab PO Q12H PRN (Reason: Congestion) RF: 0 docusate sodium 100 mg Tablet 100 mg PO BID RF: 0 cholecalciferol (vitamin D3) [Vitamin D3] 1,000 unit Capsule 1,000 unit PO QAM RF: 0 calcium carbonate-vitamin D3 [Calcium 600 with Vitamin D3] 600 mg(1,500mg) - 500 unit Capsule 600 cap PO DAILY RF: 0 Discontinued lorazepam 1 mg tablet 1 mg PO TID RF: 0 acetaminophen [Tylenol] 325 mg Tablet 650 mg PO Q6 PRN (Reason: Pain) RF: 0 trazodone 50 mg tablet 150 mg PO HS RF: 0 perphenazine 4 mg tablet 12 mg PO QAM RF: 0 perphenazine 8 mg tablet 16 mg PO HS RF: 0 hydroxyzine pamoate 25 mg capsule 25 mg PO TID RF: 0 lithium carbonate 300 mg capsule 300 mg PO QPM RF: 0 Discharge Orders: Discharge Order (Routine); Ordered 10/16/19 Ordered By: Tramaine Soares Admission Data Admit Date/Time: 09/29/19 19:21 Attending Provider: Tracy Avilez Admit Provider: Lurdes Reyes Primary Care Provider: Andrea Vale Other Providers: Lurdes Reyes ; Franc Godoy V Other Interventions: Discharge Summary Assessment (RN) Last Done: 10/16/19 09:43 DC Date/Time DO NOT enter until pt leaves facility: 10/16/19 11:12 C[place] [address] D/C day mgmt > 30 min Patient Type Established History Expanded Problem Focused Exam Expanded Problem Focused Medical Decision Making High Complexity Diagnoses Chronic paranoid schizophrenia F20.0 Leukocytopenia D72.819 Time Spent (min) 60
== END 2019-10-16 11:12 | disposition home or self-care (01) | DRG 885 ==
LOC: ED 13:45 → 3S 19:21

== ENCOUNTER 2024-04-23 06:50 | Inpatient (IN) ==
--- NOTE | 2024-04-23 07:21 | Emergency Department Note ---
Impression & Plan Acute confusion, Acute paranoia, Acute UTI (urinary tract infection) ED Provider Note HISTORY OF PRESENT ILLNESS: Patient is a 69-year-old female presenting with paranoia. Patient resides at [facility] personal-care facility. She reported to staff that she was seeing objects and people that were not there. She was reportedly been increasingly combative with the staff for the last 48 hours. On discussion with the patient, she states that she believes that "this personal-snf is part of the [place] [employer]." She states "they are giving me crack cocaine and other drugs that are inducing nightmares that are causing me not to sleep." She denies any chest pain but does report intermittent shortness of breath over the last few weeks. Denies any DVT or PE history. She denies any recent changes in medications. Denies any abdominal pain, nausea or vomiting. Denies any dysuria or hematuria. Patient does report that she has been "seeing things" since she started residing at the care facility 6 years ago. Reports in the last 48 hours it has been worse because "they change my dose of my crack cocaine." ROS: as above PHYSICAL EXAM: Constitutional: Patient appears in no acute distress. HENT: Head: Normocephalic and atraumatic. Eyes: EOMI, PERRL Mouth/Throat: Mucous membranes moist. Neck: Trachea midline. Neck supple. Cardiovascular: RRR, No murmurs, rubs or gallops. Intact distal pulses. Pulmonary/Chest: No respiratory distress. Breath sounds clear and equal bilaterally. No wheezes or rales Abdominal: Abdomen soft, no tenderness, rebound or guarding. Musculoskeletal: No edema, tenderness or deformity noted. Skin: Warm and dry. No rash, erythema, pallor or cyanosis Psychiatric: Appropriate mood and affect for situation. Neurological: Alert and keenly responsive. CN II-XII grossly intact, moving all extremities equally and fully. MDM: - Vitals signs stable. - History obtained via patient and EMS. History as above. - Chronic conditions affecting care: mood disorder; paranoid schizophrenia; DM-2 - Differential diagnoses include, but are not limited to: UTI; pneumonia; CVA; intracranial hemorrhage; ACS - Order placed for continuous cardiac monitoring. At this time, monitor showed rate of 55 bpm with normal sinus rhythm, per my interpretation. - External medical records reviewed. Discharge summary dated 10/16/2019 was reviewed. Patient was admitted at that time for her schizophrenia, she was noted to have stopped taking her medications. - EKG interpreted by myself showed normal sinus rhythm. Rate bradycardic 59 bpm. QT 442. No acute ischemic changes. - Laboratory workup interpreted by myself showed leukopenia (WBC 1.59) with neutropenia; normal PT/INR; stable electrolytes; normal lactate; negative procalcitonin; normal troponin; normal TSH - Leukopenia likely secondary to patient's antipsychotic use. - CXR negative for pneumonia - UA showed positive WBC and leukocyte esterase, but negative bacteria. Given 2g IV rocephin as coverage in setting of neutropenia - CT head wo contrast negative for acute pathology - [facility] reported to EMS that they did not feel comfortable taking the patient back to their facility secondary to her confusion and profound paranoia. - Patient was not given her antipsychotic medication prior to arrival in the emergency department today. 0.5 mg p.o. Ativan and 120 mg PO lurasidone ordered. - Discussion was had with insurance case manager about patient's case and need for admission - Hospitalist consulted for admission - [facility] ASSESSMENT AND PLAN: Diagnosis: acute confusion; acute UTI; acute paranoia Plan: admit Past Med/Surg History Problem List (Updated 04/23/24 @ 11:08 by Latanya Allen MD) Acute UTI (urinary tract infection) (Acute) Acute paranoia (Acute) Acute confusion (Acute) Mood disorder (Acute) Diabetes Leukocytopenia (Acute) Chronic paranoid schizophrenia (Acute 05/21/11) Hypokalemia Visual hallucinations (Acute) Family History Other Family history non-contributory Social History Smoking Status: Unknown if ever smoked Preferred Language: Uzbek Communication Ability: Effective Visual Impairment: No Limitations Apartment Assistant Manager Required: No Beliefs That Will Affect Care: None marital status: Single Current Living Situation: Personal Care Facility current occupational status: disabled Feels Safe at Home: No Assistive Devices: Glasses Allergies Allergies Allergy/AdvReac Type Severity Reaction Status Date / Time animal dander Allergy Unknown Unknown Unverified 04/23/24 09:01 Home Meds Home Medications Medication Instructions Recorded Confirmed acetaminophen 325 mg tablet 650 mg PO Q6H PRN Pain 12/15/20 04/23/24 cholecalciferol (vitamin D3) 25 25 mcg PO DAILY 12/15/20 04/23/24 mcg (1,000 unit) tablet (Vitamin D3) perphenazine 16 mg tablet 32 mg PO BID 12/15/20 04/23/24 sennosides 8.6 mg tablet (senna) 8.6 mg PO BID PRN Constipation 12/15/20 04/23/24 vitamin B complex 1 tab PO DAILY 12/15/20 04/23/24 carbamide peroxide 6.5 % ear drops 1 drp otic (ear) UD 03/19/24 04/23/24 (Debrox) carboxymethylcellulose sodium 1 % 1 drp ophthalmic (eye) TID PRN Dry 03/19/24 04/23/24 eye drops (Artificial Tears Eye(S) (carboxymethylcellulose)) dextromethorphan-guaifenesin 10 10 ml PO Q4H PRN Cough 03/19/24 04/23/24 mg-100 mg/5 mL oral syrup docusate sodium 100 mg capsule 100 mg PO QAM 03/19/24 04/23/24 fluoxetine 40 mg capsule 40 mg PO DAILY 03/19/24 04/23/24 mirabegron 50 mg tablet,extended 50 mg PO DAILY 03/19/24 04/23/24 release 24 hr (Myrbetriq) triamcinolone acetonide 55 mcg 2 spray intranasal DAILY 03/19/24 04/23/24 nasal spray aerosol (Nasacort Allergy) lorazepam 0.5 mg tablet 0.5 mg PO BID ANXIETY 04/23/24 04/23/24 lurasidone 120 mg tablet 120 mg PO DAILY 04/23/24 04/23/24 Results & Data (ED) Vital Signs Vital Signs - 24 hr 04/23/24 07:05 04/23/24 07:19 04/23/24 08:13 Temperature 36.6 C Temperature Source Oral Pulse Rate 65 65 57 L Pulse Rhythm Regular Respiratory Rate 14 14 Blood Pressure 136/85 Blood Pressure Mean 102 Pulse Oximetry 95 95 Oxygen Delivery Method Room Air Room Air Sepsis Recent Fever Within 48 Hours No Sepsis New/Unexplained Change in Mental Status N/A Sepsis Action Taken by Nursing No Action Required 04/23/24 09:03 Temperature Temperature Source Pulse Rate 54 L Pulse Rhythm Respiratory Rate 15 Blood Pressure 138/88 Blood Pressure Mean 104 Pulse Oximetry 96 Oxygen Delivery Method Sepsis Recent Fever Within 48 Hours Sepsis New/Unexplained Change in Mental Status Sepsis Action Taken by Nursing Laboratory Data 04/23/24 07:00 04/23/24 07:00 Lab Results 04/23/24 04/23/24 04/23/24 Range/Units 07:00 07:27 07:28 WBC 1.59 L (4.8-10.8) K/ul RBC 4.17 L (4.20-5.40) M/uL Hgb 12.6 (12.0-16.0) g/dl Hct 36.9 L (37.0-47.0) % MCV 88.5 (80.0-100.0) fL MCH 30.2 (25.0-34.0) pg MCHC 34.1 (32.0-36.0) g/dL RDW Std Deviation 40.5 (36.4-46.3) fL RDW Coeff of Nayeli 12.5 (11.5-14.5) % Plt Count 186 (130-400) K/uL MPV 9.4 (9.4-12.4) fL Immature Gran % (Auto) 0.0 % Neut % (Auto) 36.5 % Lymph % (Auto) 52.8 % [place] % (Auto) 10.7 % Eos % (Auto) 0.0 % Baso % (Auto) 0.0 % Neut # (Auto) 0.58 L* (1.40-6.50) K/uL Lymph # (Auto) 0.84 L (1.20-3.40) K/uL [place] # (Auto) 0.17 (0.11-0.59) K/uL Eos # (Auto) 0.00 (0.00-0.50) K/uL Baso # (Auto) 0.00 (0.00-0.20) K/uL Immature Gran # (Auto) 0.00 L (0.01-0.20) K/uL PT 10.9 (9.0-12.0) Seconds INR 1.0 (0.9-1.1) Sodium 141 (136-145) mmol/L Potassium 4.3 (3.5-5.1) mmol/L Chloride 109 H (98-107) mmol/L Carbon Dioxide 27 (21-32) mmol/L Anion Gap 5 (3-11) BUN 17 (6-23) mg/dl Creatinine 0.93 (0.6-1.2) mg/dl Est Cr Clr Drug Dosing 60.6 ml/min Est GFR ( Amer) 72.2 ml/min Est GFR (Non-Af Amer) 62.3 ml/min BUN/Creatinine Ratio 18.3 (10-20) Glucose 119 H (70-99(Fasting)) mg/dl POC Glucose 115 H (70-99) mg/dl Lactate (0.4-2.0) mmol/L Calcium 9.0 (8.6-10.3) mg/dl Magnesium 1.9 (1.7-2.4) mg/dl Total Bilirubin 0.5 (0.2-1.0) mg/dl AST 19 (13-39) U/L ALT 11 (7-52) U/L Alkaline Phosphatase 78 (34-104) U/L Troponin I High Sens 2.8 (0-14) pg/ml Total Protein 6.5 (6.0-8.3) gm/dl Albumin 3.8 (3.4-5.0) gm/dl Globulin 2.7 (2.5-4.0) gm/dl Albumin/Globulin Ratio 1.4 (0.9-2) Procalcitonin (0-0.5) ng/ml TSH 0.585 (0.300-4.500) uIu/ml Urine Color Urine Appearance (Clear) Urine pH (4.5-7.5) Ur Specific [place] (1.000-1.030) Urine Protein (Negative) Urine Glucose (UA) (Negative) Urine Ketones (Negative) Urine Blood (Negative) Urine Nitrite (Negative) Urine Bilirubin (Negative) Urine Urobilinogen (Negative) Ur Leukocyte Esterase (Negative) Urine WBC (Auto) (0-5) /hpf Urine RBC (Auto) (0-2) /hpf U Hyaline Cast (Auto) (0-2) /lpf U Epithel Cells (Auto) (0-2) /hpf Urine Bacteria (Auto) (None Seen) Urine Opiates Screen Neg (Neg) Ur Methadone, Qual Neg (Neg) Urine Fentanyl Screen Neg (Neg) Urine Barbiturates Neg (Neg) Ur Phencyclidine (PCP) Neg (Neg) U Amphetamin/Meth Scrn Neg (Neg) MDMA (Ecstasy) Screen Neg (Neg) U Benzodiazepines Scrn Neg (Neg) Ur Cocaine Metabolite Neg (Neg) U Marijuana (THC) Screen Neg (Neg) Adenovirus (PCR) (NotDetected) B. pertussis DNA (PCR) (NotDetected) B.parapertussis DNA PCR (NotDetected) C. pneumoniae DNA (PCR) (NotDetected) Coronavirus OC43 (PCR) (NotDetected) Coronavirus HKU1 (PCR) (NotDetected) Coronavirus 229E (PCR) (NotDetected) SARS-CoV-2 (PCR) (NotDetected) Coronavirus NL63 (PCR) (NotDetected) Human Metapneumovir PCR (NotDetected) Influenza Type A (PCR) (NotDetected) Influenza Type B (PCR) (NotDetected) M. pneumoniae (PCR) (NotDetected) Parainfluenza 1 (PCR) (NotDetected) Parainfluenza 2 (PCR) (NotDetected) Parainfluenza 3 (PCR) (NotDetected) Parainfluenza 4 (PCR) (NotDetected) RSV (PCR) (NotDetected) Entero/Rhino (PCR) (NotDetected) 04/23/24 04/23/24 04/23/24 Range/Units 07:35 08:04 08:33 WBC (4.8-10.8) K/ul RBC (4.20-5.40) M/uL Hgb (12.0-16.0) g/dl Hct (37.0-47.0) % MCV (80.0-100.0) fL MCH (25.0-34.0) pg MCHC (32.0-36.0) g/dL RDW Std Deviation (36.4-46.3) fL RDW Coeff of Nayeli (11.5-14.5) % Plt Count (130-400) K/uL MPV (9.4-12.4) fL Immature Gran % (Auto) % Neut % (Auto) % Lymph % (Auto) % [place] % (Auto) % Eos % (Auto) % Baso % (Auto) % Neut # (Auto) (1.40-6.50) K/uL Lymph # (Auto) (1.20-3.40) K/uL [place] # (Auto) (0.11-0.59) K/uL Eos # (Auto) (0.00-0.50) K/uL Baso # (Auto) (0.00-0.20) K/uL Immature Gran # (Auto) (0.01-0.20) K/uL PT (9.0-12.0) Seconds INR (0.9-1.1) Sodium (136-145) mmol/L Potassium (3.5-5.1) mmol/L Chloride (98-107) mmol/L Carbon Dioxide (21-32) mmol/L Anion Gap (3-11) BUN (6-23) mg/dl Creatinine (0.6-1.2) mg/dl Est Cr Clr Drug Dosing ml/min Est GFR ( Amer) ml/min Est GFR (Non-Af Amer) ml/min BUN/Creatinine Ratio (10-20) Glucose (70-99(Fasting)) mg/dl POC Glucose (70-99) mg/dl Lactate 0.8 0.8 (0.4-2.0) mmol/L Calcium (8.6-10.3) mg/dl Magnesium (1.7-2.4) mg/dl Total Bilirubin (0.2-1.0) mg/dl AST (13-39) U/L ALT (7-52) U/L Alkaline Phosphatase (34-104) U/L Troponin I High Sens (0-14) pg/ml Total Protein (6.0-8.3) gm/dl Albumin (3.4-5.0) gm/dl Globulin (2.5-4.0) gm/dl Albumin/Globulin Ratio (0.9-2) Procalcitonin < 0.02 (0-0.5) ng/ml TSH (0.300-4.500) uIu/ml Urine Color Yellow Urine Appearance Clear (Clear) Urine pH 6.0 (4.5-7.5) Ur Specific [place] 1.020 (1.000-1.030) Urine Protein Negative (Negative) Urine Glucose (UA) Negative (Negative) Urine Ketones Trace H (Negative) Urine Blood Negative (Negative) Urine Nitrite Negative (Negative) Urine Bilirubin Negative (Negative) Urine Urobilinogen Negative (Negative) Ur Leukocyte Esterase 2+ H (Negative) Urine WBC (Auto) 11-20 H (0-5) /hpf Urine RBC (Auto) 0-2 (0-2) /hpf U Hyaline Cast (Auto) 0-2 (0-2) /lpf U Epithel Cells (Auto) 0-2 (0-2) /hpf Urine Bacteria (Auto) None Seen (None Seen) Urine Opiates Screen (Neg) Ur Methadone, Qual (Neg) Urine Fentanyl Screen (Neg) Urine Barbiturates (Neg) Ur Phencyclidine (PCP) (Neg) U Amphetamin/Meth Scrn (Neg) MDMA (Ecstasy) Screen (Neg) U Benzodiazepines Scrn (Neg) Ur Cocaine Metabolite (Neg) U Marijuana (THC) Screen (Neg) Adenovirus (PCR) Not Detected (NotDetected) B. pertussis DNA (PCR) Not Detected (NotDetected) B.parapertussis DNA PCR Not Detected (NotDetected) C. pneumoniae DNA (PCR) Not Detected (NotDetected) Coronavirus OC43 (PCR) Not Detected (NotDetected) Coronavirus HKU1 (PCR) Not Detected (NotDetected) Coronavirus 229E (PCR) Not Detected (NotDetected) SARS-CoV-2 (PCR) Not Detected (NotDetected) Coronavirus NL63 (PCR) Not Detected (NotDetected) Human Metapneumovir PCR Not Detected (NotDetected) Influenza Type A (PCR) Not Detected (NotDetected) Influenza Type B (PCR) Not Detected (NotDetected) M. pneumoniae (PCR) Not Detected (NotDetected) Parainfluenza 1 (PCR) Not Detected (NotDetected) Parainfluenza 2 (PCR) Not Detected (NotDetected) Parainfluenza 3 (PCR) Not Detected (NotDetected) Parainfluenza 4 (PCR) Not Detected (NotDetected) RSV (PCR) Not Detected (NotDetected) Entero/Rhino (PCR) Not Detected (NotDetected) Administered Medications Lurasidone HCl (Lurasidone Hcl 20 Mg Tab) 120 mg PO DAILY NIKOLE Stop: 05/23/24 09:44 Last Admin: 04/23/24 10:23 Dose: 120 mg Documented By: ROSEANNA Discontinued Medications Ceftriaxone Sodium (Rocephin) 2,000 mg in 50 mls @ 100 mls/hr IV NOW STA Stop: 04/23/24 09:10 Last Infusion: 04/23/24 09:36 Dose: Infused Documented By: Admin: 04/23/24 09:01 Dose: 100 mls/hr Documented By: ROSEANNA Lorazepam (Lorazepam 0.5 Mg Tab) 0.5 mg PO NOW STA Stop: 04/23/24 09:38 Last Admin: 04/23/24 10:23 Dose: 0.5 mg Documented By: ROSEANNA Imaging Data Radiologist's Impression: Chest X-Ray 04/23/24 07:18 SINGLE VIEW CHEST CLINICAL HISTORY: Change in mental status. FINDINGS: An AP, portable, upright chest radiograph is compared to study dated 03/19/2024. The cardiomediastinal silhouette is top normal for projection. Chronic interstitial thickening is similar to previous. The lungs and pleural spaces are clear. No pneumothorax is seen. The skeletal structures are osteopenic. The bony thorax is grossly intact. IMPRESSION: No active disease in the chest. ACT 112: Negative or not required by law. Electronically signed by: Efe Seals M.D. 04/23/2024 8:[address] 04/23/24 07:18 CT head/brain wo con CLINICAL HISTORY: altered mental status Technique: Contiguous axial CT images of the head were acquired from the base of the skull to the vertex without intravenous contrast administration. Images were viewed in brain, subdural and bone windows. Automated dose lowering techniques and/or adjustment according to patient size were utilized for this exam. Comparison: None available at the time of this dictation. Findings: The ventricles, basal cisterns, and cerebral sulci are normal. There is no acute intracranial hemorrhage or evidence of acute territorial infarction. Neither mass effect, shift of the midline structures, nor abnormal extra-axial fluid collections are shown. Imaged portions of the paranasal sinuses and mastoid air cells are clear. The orbits appear normal. There are no acute fractures of the calvaria or scalp swelling. Impression: No acute intracranial hemorrhage, no evidence of acute territorial infarction or other acute intracranial disease process. ACT 112: Negative or not required by law. Electronically signed by: Gordy Maharaj M.D. 04/23/2024 7:51 AM Discharge Plan Visit Data Chief Complaint: Altered Mental Status Stated Complaint: HALLUCINATIONS, MENTAL HEALTH ISSUES ED Provider: Latanya Allen Discharge Problem: Acute confusion, Acute paranoia, Acute UTI (urinary tract infection) Forms Stand Alone Forms: [facility] [employer] Prescriptions Prescriptions: No Action sennosides [senna] 8.6 mg Tablet 8.6 mg PO BID PRN (Reason: Constipation) acetaminophen 325 mg Tablet 650 mg PO Q6H PRN (Reason: Pain) B Complex Tablet Extended Release 1 tab PO DAILY perphenazine 16 mg tablet 32 mg PO BID cholecalciferol (vitamin D3) [Vitamin D3] 25 mcg (1,000 unit) Tablet 25 mcg PO DAILY fluoxetine 40 mg capsule 40 mg PO DAILY dextromethorphan-guaifenesin [Tussin DM Cough] 10-100 mg/5 mL Syrup 10 ml PO Q4H PRN (Reason: Cough) triamcinolone acetonide [Nasacort Allergy] 55 mcg Aerosol,[place] 2 spray INTRANASAL DAILY Rx Instructions: administer into each nostril Debrox 6.5 % Drops 1 drp otic (ear) UD Rx Instructions: Use as directed then irrigate with 180 mls of warm water to each ear docusate sodium 100 mg Capsule 100 mg PO QAM MDD 200mg/24hr Rx Instructions: May take additional 100mg in the evening if needed for constipation mirabegron [Myrbetriq] 50 mg tablet extended release 24 hr 50 mg PO DAILY Artificial Tears (cmc) 1 % Drops 1 drp OPHTHALMIC (EYE) TID PRN (Reason: Dry Eye(S)) lorazepam 0.5 mg tablet 0.5 mg PO BID lurasidone 120 mg tablet 120 mg PO DAILY Referrals Referrals: Andrea Vale [Primary Care Provider] -
[2024-04-23 07:32] LABS: Hematocrit (blood only) 36.9 % (37.0-47.0); Hemoglobin 12.6 g/dl (12.0-16.0); Mean Corpuscular Hemoglobin 30.2 pg (25.0-34.0); Mean Corpuscular Hgb Conc 34.1 g/dL (32.0-36.0); Mean Corpuscular Volume 88.5 fL (80.0-100.0); Mean Platelet Volume 9.4 fL (9.4-12.4); Platelet Count 186 K/uL (130-400); RDW Coefficient of Variation 12.5 % (11.5-14.5); RDW Standard Deviation 40.5 fL (36.4-46.3); Red Blood Count 4.17 M/uL (4.20-5.40); White Blood Count 1.59 K/ul (4.8-10.8)
[2024-04-23 07:51] LABS: Albumin Globulin Ratio 1.4 (0.9-2); Albumin Level 3.8 gm/dl (3.4-5.0); BUN Creatinine Ratio 18.3 (10-20); Bilirubin,Total 0.5 mg/dl (0.2-1.0); Creatinine Clr Calc Pharmacy 60.6 ml/min; Est GFR (African American) 72.2 ml/min; Est GFR (Non-African American) 62.3 ml/min; Globulin 2.7 gm/dl (2.5-4.0); Magnesium 1.9 mg/dl (1.7-2.4); Potassium 4.3 mmol/L (3.5-5.1); Total Protein 6.5 gm/dl (6.0-8.3)
--- NOTE | 2024-04-23 07:52 | CT Scan Report ---
CT head/brain wo con CLINICAL HISTORY: altered mental status Technique: Contiguous axial CT images of the head were acquired from the base of the skull to the sury nathaly without intravenous contrast administration. Images were viewed in brain, subdural and [facility]. Automated dose lowering techniques and/or adjustment according to patient size were utilized for this exam. Comparison: None available at the time of this dictation. Findings: The ventricles, basal cisterns, and cerebral sulci are normal. There is no acute intracranial hemorrh age or evidence of acute territorial infarction. Neither mass effect, shift of the midline structures , nor abnormal extra-axial fluid collections are shown. Imaged portions of the paranasal sinuses and mastoid air cells are clear. The orbits appear normal. There are no acute fractures of the calvaria or scalp swelling. Impression: No acute intracranial hemorrhage, no evidence of acute territorial infarction or other acute intracra nial disease process. ACT 112: Negative or not required by law. Electronically signed by: Gordy Maharaj M.D. 04/23/2024 7:51 AM
[2024-04-23 07:56] LABS: Appearance Urine Clear (Clear); Bacteria Urine Automated None Seen (None Seen); Bilirubin Urine Negative (Negative); Blood Urine Negative (Negative); Cast Urine Automated 0-2 /lpf (0-2); Color Urine Yellow; Epithelial Cell Urine Auto 0-2 /hpf (0-2); Glucose Urine UA Negative (Negative); Ketones Urine Trace (Negative); Leukocyte Esterase Urine 2+ (Negative); Nitrite Urine Negative (Negative); Protein Urine Negative (Negative); RBC Urine Automated 0-2 /hpf (0-2); Urobilinogen Urine Negative (Negative)
[2024-04-23 07:57] LABS: Prothrombin Time 10.9 Seconds (9.0-12.0); Troponin I High Sensitivity 2.8 pg/ml (0-14)
[2024-04-23 08:01] LABS: Lymphocytes # (auto) 0.84 K/uL (1.20-3.40); Lymphocytes % (auto) 52.8 %; Monocytes # (auto) 0.17 K/uL (0.11-0.59); Monocytes % (auto) 10.7 %; Neutrophils # (auto) 0.58 K/uL (1.40-6.50); Neutrophils % (auto) 36.5 %
--- NOTE | 2024-04-23 08:05 | XRay Report ---
SINGLE VIEW CHEST CLINICAL HISTORY: Change in mental status. FINDINGS: An AP, portable, upright chest radiograph is compared to study dated 03/19/2024. The cardiom ediastinal silhouette is top normal for projection. Chronic interstitial thickening is similar to pre vious. The lungs and pleural spaces are clear. No pneumothorax is seen. The skeletal structures are o steopenic. The bony thorax is grossly intact. IMPRESSION: No active disease in the chest. ACT 112: Negative or not required by law. Electronically signed by: Efe Seals M.D. 04/23/2024 8:04 AM
[2024-04-23 08:07] LABS: Thyroid Stimulating Hormone 0.585 uIu/ml (0.300-4.500)
--- OUTSIDE RECORDS SUMMARY | 2024-04-23 08:16 | External Medical Summary | Summary of Care ---
Author Name Unknown Organization [facility] Address [address] [place] [address] Phone [phone] Care Team Providers Care Medical Assembly Name Role Phone Naseem Drummond MD Primary Care Provider + Reason for Visit * Reason Onset Date Comments Test Results 04/07/2024 Genetic Counseli Encounter Details Date Type Department Care Team (Late st Contact Info) Description 04/07/2024 Telephone Genetics HemOnc, [facility] [address] [facility] [place] [id number] Yesenia Riley, [place] [address] [facility] [place] [id number] Test Results (Genetic Counseling ) Allergies Active Allergy Reactions Criticality Noted Date Comments Dog Dander 12/08/2018 Sneezing and congestion documented as of this encounter (statuses as of 04/14/2024) Medications Medication Sig Dispensed Refills Start Date End Date Status acetaminophen (TYLENOL) 325 MG TabletIndications:A cute URI Take 2 Tabs by mouth every 6 hours as needed for Pain or Fever. No more then 3000 mg in 24 hours 100 Tab 08/07/2018 Active cholecalciferol, VIT D3, (VITAMIN D3) 1000 UNITS TabletIndications:V itamin D deficiency Take 1 Tab by mouth daily. 90 Tab 3 08/08/2018 Active B-Complex TABSIndications:Vit ramsey D deficiency Take 1 Tab by mouth daily. 90 Tab 3 08/08/2018 Active Sennosides (SENNA) 8.6 MG CAPSIndications:Oth er constipation Take 1 Tab by mouth 2 times a day as needed for Constipation. 40 Cap 5 09/19/2018 Active Docusate Sodium 100 MG Oral Capsule (Colace)Indications :Other constipation Take one capsule in the am by mouth and may take one additional capsule by mouth in pm as needed for constipation 180 Cap 3 10/03/2020 Active Perphenazine 16 MG Oral Tablet Take 2 Tablets by mouth in the morning and 2 Tablets before bedtime. 12/28/2020 Active LORazepam 0.5 MG Oral Tablet (Ativan) Take 1 Tablet by mouth in the morning and 1 Tablet before bedtime. 02/13/2021 Active Artificial Tears 0.5-0.6 % Ophthalmic Solution (Polyvinyl Alcohol-Povidone)In dications:Dry eyes Instill 1 Drop into eye 3 times a day as needed for Dry eyes. Patient may self administer 15 mL 1 10/30/2021 Active FLUoxetine HCl 40 MG Oral Capsule (PROzac) 02/26/2022 Active Latuda 120 MG Oral Tablet Take 1 Tablet by mouth daily. Takes in the evening 03/19/2023 Active SAPS health Incontinence Pads Use as directed. 48 Each 11 05/21/2023 Active Myrbetriq 50 MG Oral Tablet Extended Release 24 Hour (Mirabegron ER) Take 1 Tablet by mouth in the morning. 30 Tablet 11 08/08/2023 Active Loratadine 10 MG Oral Tablet (Claritin)Indicatio ns:Acute left otitis media Take 1 Tablet by mouth in the morning. For 2-4 weeks and stop. 28 Tablet 12/11/2023 Active Dextromethorphan-gu aiFENesin 10-100 MG/5ML Oral Liquid (Robitussin DM)Indications:Acut e left otitis media,Nasal sinus congestion,Acute cough Take 10 mL by mouth every 4 hours as needed for Cough. 473 mL 12/13/2023 Active Triamcinolone Acetonide 55 MCG/ACT Nasal Aerosol (Nasacort Allergy 24HR)Indications:Ac micah left otitis media,Nasal sinus congestion Administer 2 Sprays into each nostril in the morning. 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 Patrica Ruvalcaba 09/2018-living in residential treatment home. Has new PCP. documented as of this encounter (statuses as of 04/14/2024) Resolved Problems Problem Noted Date Diagnosed Date Resolved Date Class 1 obesity in adult 01/14/201307/2019 Overview: BMI= 35.05 01/14/13, 31.29 10/06/18 Screening for diabetes mellitus 01/14/2013 04/29/2013 Screening for cardiovascular condition 01/14/2013 04/29/2013 Myalgia 01/14/2013 04/29/2013 Overweight (BMI 25.0-29.9) 01/23/2010 0 04/29/2013 Overview: Per Obesity Taxonomy LUMP IN BREAST, LEFT 08/02/2008 019 DISTENTION ABDOMINAL 11/07/2006 013 Abnormal weight gain 11/07/2006 013 IMPACTED CERUMEN, RIGHT 06/25/2005 07/0 12/2012 Otalgia 06/25/2005 04/29/2013 SCHIZOPHRENIA NEC-CHR 03/10/20032012 OBESITY, UNSPECIFIED 03/10/2003 010 Overview: Per Obesity Taxonomy ROUTINE MEDICAL EXAM 03/10/2003 013 documented as of this encounter (statuses as of 04/14/2024) Immunizations Name Administration Dates Next Due COVID-19 mRNA, LNP-s, No Pre serve, 2-Dose Series (Covocative) 08/06/2022,08/22/2021,12/08/2020,11/17 PPD 04/29/2013 Pneumococcal Conjugate Vacc, 13 Valent (Prevnar) 03/25/2019 Pneumococcal Polysaccharide PPV23 (Pneumovax) 07/15/2020 Season Influenza, Quad, PF, Adjuvanted, 65+ Yrs, IM (FLUAD) 07/15/2020 Seasonal Influenza, PF, 6 M & above, IM , (FluLaval or Fluzone) 07/31/2018 Seasonal Influenza, Quadriva lent Hd (Fluzone Hd) 07/08/2023,07/09/2022,09/04/2021 Seasonal Influenza, Quadriva lent, No Preserve, IM 07/12/2017,07/09/2016 Seasonal Influenza, Split, I IV3, With Preserve, Inj 07/07/2015,07/30/2013,09/28/2006 Seasonal Influenza, Trivalen t, Adjuvanted, 65+ yrs 07/09/2022,07/15/2019 TDAP, Age 7 and older, IM (Adacel) 01/23/2019 documented as of this encounter Social History Tobacco Use Types Packs/Day Years Used Date Smoking Tobacco: Never Smokeless Tobacco: Never Alcohol Use Standard Drinks/Week Comments No 0 (1 standard drink = 0.6 oz pur e alcohol) NONE PHQ-2 Answer Date Recorded PHQ Adult Total Score 0 09/25/2022 Hunger Vital Sign Answer Date Recorded Within the past 12 months, y ou worried that your food would run out before you got the money to buy more. Never true 09/25/20 22 Within the past 12 months, t he food you bought just didn't last and you didn't have money to get more. Never true 09/25/2022 Utilities Answer Date Recorded Do you have trouble paying y our heating, water, or electric bill? (Adult - for ages 18 years and over) Not on file 04/14/2024 Is your family able to pay t he heat, water, or electric bill? (Household - for ages 0-17 years) Not on file 04/14/2024 Does your family have access to good internet? (Household - for ages 0-17 years) Not on file 04/14/2024 Social Connections Answer Date Recorded How often do you feel lonely or isolated from those around you? (Adult - for ages 18 years and over) Not on file 04/14/2024 Sex and Gender Information Value Date Recorded Sex Assigned at Female 07/15/2019 8:40 AM EDT Gender Identity Female 07/15/2019 8:40 AM EDT Sexual Orientation Straight 07/15/2019 8: 40 AM EDT Job Start Date Occupation Industry Not on file Not on file Not on file documented as of this encounter Miscellaneous Notes * Telephone Encounter - Yesenia Riley MS - 04/14/2024 12:39 PM EDT Results disclosed to patient and [facility] Personal Chcf Caregiver (Valentina) this afternoon.All questions/concerns addressed. Mentioned previous genetic testing through 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 Advised to reachout to me directly with any additional inquiries. Hard copy of genetic test results to be mailed to [facility] addressed to both patient and caregiver(Valentina), GCAs notified today. Yesenia Riley MS, [facility] Licensed, Certified Genetic Counselor Cancer Genetics Risk Assessment Clinic at [facility] (P) [phone] | (F) [phone] | (E) [email or web address] * Telephone Encounter - Yesenia Riley MS - 04/10/2024 1:44 PM EDT Spoke to [facility] Personal Chcf Caregiver (Meliza) this afternoon re: Nury's genetic testresults. She mentioned that Valentina (caregiver at living facility) would be back in the office on Saturday. I will attempt for result disclosure at that time. Yesenia Riley MS, [facility] Licensed, Certified Genetic Counselor Cancer Genetics Risk Assessment Clinic at [facility] (P) [phone] | (F) [phone] | (E) [email or web address] * Telephone Encounter - Frederic Rileyrielle T, - 04/07/2024 3:19 PM EDT Genetic Test Result 04/07/2024: Negative Test Ordered: Multi-Cancer Panel at [facility] (70 genes) Genes Included: AIP, ALK, APC, LUDA, AXIN2, BAP1, BARD1, BLM, BMPR1A, BRCA1, BRCA2, BRIP1, CDC73, CDH1, CDK4, CDKN1B, CDKN2A (p14ARF), CDKN2A ([id number]), CHEK2, CTNNA1, DICER1, EGFR, EPCAM, FH, FLCN, GREM1, HOXB13, KIT, LTZR1, MAX, MBD4, MEN1, MET, MITF, MLH1, MSH2, MSH3, MSH6, MUTYH, NF1, NF2, NTHL1, PALB2, PDGFRA, PMS2, POLD1, POLE, POT1, LQZRA4L, PTCH1, PTEN, RAD51C, RAD51D, RB1, RET, SDHA, SDHAF2, SDHB, SDHC, SDHD, SMAD4, SMARCA4, SMARCB1, SMARCE1, STK11, SUFU, LSEA321, TP53, TSC1, TSC2, VHL No hereditary cancer syndrome identified. No genetic variants were identified that are associated with the family history of breast cancer. The family history is not otherwise suggestive of familial risk, so the chance for a missed pathogenic variant is low. Continue to follow your providers' recommendations for cancer screening and routine care. No additional genetic testing is recommended at this time; however, the patient will be made aware of the 150-day reflex window, should they wish to purse additional analysis. RISK CALCULATIONS Date of Analysis: 04/07/2024, 03:26 PM. Age used for Analysis: 67. Breast/Ovarian Risk Model BRCA 1/2 Mutation 5-Year Breast Cancer Lifetime Breast Cancer 5-Year Ovarian Cancer Lifetime Ovarian Cancer BRCAPRO 0% 2.32% 6.71% 0.18% 0.59% Tyrer Cuzick v6 0% 14.32% 32.58% Tyrer-Cuzick v7 0.32% 7.94% 26.27% Tyrer-Cuzick v8 0% 15.93% 47.23% Valdo 1.8% 3.8% Janis 9.56% 27.77% Colon/Endometrial Risk Model HNPCC Mutation 5-Year Colorectal Cancer Lifetime Colorectal Cancer 5-Year Endometrial Cancer Lifetime Endometrial Cancer MMRPRO 0% 0.56% 2.21% 0.38% 1.03% CCRAT 1.29% 6.06% The following scores are based on the patient's risk factors and for a given breast density composition. Lewis v8 Lifetime Risk by Density Breast Composition Lifetime Risk BIRADS A - Almost entirely fatty 16.46% BIRADS B - Scattered fibroglandular density 24% BIRADS C - Heterogeneously dense 34.22% BIRADS D - Extremely dense 47.23% Familial Implications Relatives with cancer could consider genetic testing to clarify the significance of this result forthe family. Genetic testing for unaffected family members is recommended, as it is possible that there is a genetic risk factor present in the family that Nury did not inherit. Close relatives are encouraged to speak with their doctors about the family history of cancer to develop a personalized cancer screening plan. The patient was not asked if they were willing to share their genetic test result and pedigree withrelatives. Left message with record label internship / relative and I will attempt to reach the patient again at a later date. Spoke with Meliza from [facility] [employer] and she took a message to pass along to Madi (caregiver at living facility) and Ms. Pfeiffer. Should they not return my phone call in the next few days, I will reach out again. Yesenia Riley MS, [facility] Licensed, Certified Genetic Counselor [facility]24 documented in this encounter Plan of Treatment Upcoming Encounters Date Type Department Care Team (Late st Contact Info) Description 04/21/2024 1:00 PM EDT Office Visit General Surgery, [facility] [address] [place] [address] Laxmi Bridges MD [address] [place] [address] 05/19/2024 1:00 PM EDT Office Visit General Internal Medicine [facility] [address] [place], [place] [address] Naseem Drummond MD [address] [place], [place] [address] Scheduled Procedures Name Priority Associated Diagnoses Date/Ti me COLONOSCOPY FLEXIBLE PROXIMAL DIAGNOSTIC Recall History of colon polyps Health Maintenance Due Date Last Done Comments Cologuard 1999 Fecal Occult Blood Test 1999 Sigmoidoscopy 1999 Zoster Vaccines (1 of 2) 02/08/2004 COVID-19 Vaccine ( season) 2023 08/06/2022, 08/22/2021, 12/08/2020, Additional history exists Depression Screening 09/25/2023 09/25/2022, 07/07/20 15 Mammogram 01/19/2025 01/20/2024, 12/27, 01/16/2023, Additional history exists DXA Scan 04/01/2026 04/01/2019, 04/01/2019 Colonoscopy 04/08/2028 04/08/2023, 03/28, 08/22/2016, Additional history exists Colorectal Cancer Screening 04/08/2028 Lipid Panel 07/08/2028 07/08/2023, 03/2021, 03/07/2020, Additional history exists DTaP,Tdap,and Td Vaccines (2 - Td or Tdap) 01/23/2029 01/23/2019 Pneumococcal Vaccine: 65+ Years Completed 07/15/2020, 03/25/2019 RETIRED - COLONOSCOPY-EVERY 5 YRS AGES 18-100 Discontinued 04/08/2023, 04/08/2023, 08/22/2016, Additional history exists Influenza Vaccine (FLU shot) Completed 07/08/2023, 07/09/2022, 07/09/2022, Additional history exists GARDASIL-HPV IMMUNIZATION SERIES Aged Out No longer eligible based on patient's age to complete this topic Hepatitis B Aged Out No longer eligi ble based on patient's age to complete this topic MENINGOCOCCAL (MENACTRA/MENVEO) Aged Out No longer eligible based on patient's age to complete this topic documented as of this encounter Medical Devices Not on filedocumented as of this encounter Care Teams Medical Assembly Relationship Specialty Start Date End Date Naseem Drummond MD [address] [facility] [place] [address] PCP - General Internal Medicine 04/28/13 documented as of this encounter"
--- OUTSIDE RECORDS SUMMARY | 2024-04-23 08:16 | External Medical Summary | Summary of Care ---
Author Name Unknown Organization [facility] Address [address] [place] [address] Phone [phone] Care Team Providers Care Refinery Operator Visbreaking Name Role Phone Naseem Drummond MD Primary Care Provider + Reason for Referral * Precert (Within 10 days (routine)) - Authorized Specialty Diagnoses / Procedures Referred By Armond styles Referred To Contact Radiology Diagnoses Atypical lobular hyperplasia of breast Family hx-breast malignancy Extremely dense tissue of both breasts on mammography Procedures MRI BREAST BILATERAL W WO CONTRAST Laxmi Bridges MD [address] [place] [address] Referral ID Status Reason Start Date Expiration Date V isits Requested Visits Authorized [id number] Authorized 11/12/2024 999 999 Reason for Visit * Reason Comments Follow Up [facility]. left breast bi opsy on 05/23/22 for left breast atypical lobular hyperplasia. * Evaluate & Treat - Unlimited Visits (Within 30 days (routine)) - Authorized Specialty Diagnoses / Procedures Referred By Armond styles Referred To Contact General Surgery - Breast Surgery / Surgical Oncology Diagnoses Atypical lobular hyperplasia (ALH) of breast Naseem Drummond MD [address] [place] [address] Referral ID Status Reason Start Date Expiration Date Visits Requested Visits Authorized [id number] Authorized Specialty Services Required 11/18/2023 999 999 Encounter Details Date Type Department Care Team (Late st Contact Info) Description 04/21/2024 1:00 PM EDT Office Visit General Surgery, [facility] [address] [place] [address] Laxmi Bridges MD [address] [place] [address] Atypical lobular hyperplasia of breast*; Family hx-breast malignancy; Extremely dense tissue of both breasts on mammography; Encounter for screening mammogram for malignant neoplasm of breast Allergies Active Allergy Reactions Criticality Noted Date Comments Dog Dander 12/08/2018 Sneezing and congestion documented as of this encounter (statuses as of 04/21/2024) Medications Medication Sig Dispensed Refills Start Date [...] as of this encounter (statuses as of 04/21/2024) Active Problems Problem Noted Date Diagnosed Date Complex sclerosing lesion of breast 09/25/2022 Atypical lobular hyperplasia (ALH) of breast Memory difficulty 01/07/2020 Chronic constipation 03/25/2019 Grade II diastolic dysfunction 03/05/2019 Overview: By echo 02/2019 Vitamin D deficiency 01/19/2013 Drug-induced leukopenia 01/14/2013 Hearing loss 06/25/2005 Allergic rhinitis 03/10/2003 Paranoid schizophrenia, chronic condition Overview: last hospitalized 2011 - [facility] Sees Dr. Patrica Ruvalcaba 09/2018-living in residential treatment home. Has new PCP. documented as of this encounter (statuses as of 04/21/2024) Resolved Problems Problem Noted Date Diagnosed Date [...] weight gain 11/07/2006 013 IMPACTED CERUMEN, RIGHT 06/25/200512/2012 Otalgia 06/25/2005 04/29/2013 SCHIZOPHRENIA NEC-CHR 03/10/20032012 OBESITY, UNSPECIFIED 03/10/2003 010 Overview: Per Obesity Taxonomy ROUTINE MEDICAL EXAM 03/10/2003 013 documented as of this encounter (statuses as of 04/21/2024) Immunizations Name Administration Dates Next Due COVID-19 mRNA, LNP-s, No Pre serve, 2-Dose Series (Emprego Ligado) 08/06/2022,08/22/2021,12/08/2020,11/17 PPD 04/29/2013 Pneumococcal Conjugate Vacc, 13 [...] on file documented as of this encounter Last Filed Vital Signs Vital Sign Reading Time Taken Comments Blood Pressure - - Pulse - - Temperature - - Respiratory Rate - - Oxygen Saturation - - Inhaled Oxygen Concentration - - Weight 78.7 kg (173 lb 6.4 oz) 04/21/2024 1:14 P M EDT Height - - Body Mass Index 28.86 11/18/2023 11:43 AM EST documented in this encounter Progress Notes * Laxmi Bridges MD - 04/21/2024 1:19 PM EDT Images from the original note were not included. [facility] BREAST [facility]IC NOTES SUBJECTIVE: Nury Pfeiffer is a 69 year old female who is here for her annual high risk followup visit due to a lifetime risk of breast cancer varying from 3.8-46.38% with TC v8 showing highest risk. This isdue to a personal history of atypical lobular hyperplasia, a family history of breast cancer, and extremely dense tissue on mammography. Very mild twinge of pain under the left arm at times. Occasional nipple dimpling left side also. Had a mole removed from the upper left breast by dermatology. 02/04/24: A. Skin, L chest, shave: Seborrheic keratosis, pigmented Switched medications around so sleeping better at night (ativan in evening). Screening: MRI scan 11/12/23 and mammography 01/20/24 Chemoprevention: pt declined Genetics: Pt underwent testing in March 2024 - negative for mutation. Mother was 42 at her diagnosis, genetics was not done Nury underwent a left breast biopsy on 05/23/22 for left breast atypical lobular hyperplasia and a complex sclerosing lesion that was found on screening mammography. Final pathology showed a complex sclerosing lesion. Imaging finding history: 1) Preop MRI showed 7 mm of NME in the left breast (not at site of ALH). MRI guided biopsy recommended but the lesion was not present the day of the biopsy. 6 month f/u MRI recommended to recheck andthe area has not been seen again. 2) December 2023: Left breast 12-1 o'clock retroareolar hypoechoic wider than tall mass measures 19 x 8 x 17 mm previously 22 by 9 x 21 mm on examination from February 02, 2022. Left breast three o'clock hypoechoic mass 2 cm from the nipple measures 8 by 5 x 7 mm previously 9 by 7 x 7 mm on examination from February 02, 2022. Has been followed at [facility] for drug induced leukocytopenia - stopped giving her the injections, blood counts are low but stable. Last was checked around 2 weeks ago. Pathology: 05/23/22 A. Left breast lesion, upper inner quadrant, excision: Complex sclerosing lesion. Fibrocystic changes including usual ductal hyperplasia, apocrine metaplasia, columnar cell hyperplasia, sclerosing adenosis, and cyst formation. Biopsy site reaction with fibrosis, prominent histiocytic infiltrate, and calcifications. BREAST ROS: No severe breast pain, No nipple discharge and No recent change in shape/color In 1990, had a procedure where a lump was removed from the left breast. Had a cyst aspiration in the past- benign. Mother with breast cancer, age 42. Unclear if genetics was done. Had a mastectomy, chemotherapy, survivor for over 30 yrs. GYNECOLOGIC HISTORY: LMP: No LMP recorded. Patient is postmenopausal. Menarche at age: 12 Menopause at age: 49 Number of children: no Patient's age at first live : No Did you breast feed any of your children: No Ever take oral contraceptives? No Ever take estrogen? No Imagin01/20/24: Result MAMMOGRAM DIAGNOSTIC DARYA BILATERAL US BREAST LIMITED LEFT History History of abnormal mammogram Other abnormal and inconclusive findings on diagnostic imaging of breast Family medical history includes breast cancer in mother (age of onset: 42). Films Compared 11/12/2023 MRI BREAST BILATERAL W WO CONTRAST, 01/16/2023 US BREAST LIMITED LEFT, 01/16/2023 MAMMOGRAM DIAGNOSTIC DARYA BILATERAL, 11/09/2022 MRI BREAST BILATERAL W WO CONTRAST, 10/17/2022 MAMMOGRAM DIAGNOSTIC DARYA LEFT, 10/17/2022 US BREAST LIMITED LEFT, 05/23/2022 MAMMOGRAM BREAST SURGICAL SPECIMEN LEFT, 05/17/2022 MAMMOGRAM NEEDLE LOCALIZATION LEFT, 05/10/2022 MRI GUIDED BREAST BX LEFT, 04/26/2022 MRI GUIDED BREAST BX LEFT, 03/21/2022 MRI BREAST BILATERAL W WO CONTRAST, 02/28/2022 MAMMOGRAM BREAST NEEDLE BIOPSY CORE LEFT, 02/02/2022 MAMMOGRAM DIAGNOSTIC DARYA LEFT, 02/02/2022 US BREAST LIMITED LEFT, 01/15/2022 MAMMOGRAM SCREENING DARYA BILATERAL, 03/03/2021 US BREAST LIMITED LEFT, 01/04/2021 MAMMOGRAM SCREENING DARYA BILATERAL, 12/17/2019 MAMMOGRAM DIAGNOSTIC DARYA BILATERAL, 12/17/2019 US BREAST LIMITED LEFT Findings Left MAMMOGRAM DIAGNOSTIC DARYA BILATERAL/US BREAST LIMITED LEFT The left breast is extremely dense, which lowers the sensitivity of mammography. There is no evidence of suspicious masses, calcifications, or other abnormal findings in the left breast. Postsurgicalchanges are noted within the left breast. Left breast 12-1 o'clock retroareolar hypoechoic wider than tall mass measures 19 x 8 x 17 mm previously 22 by 9 x 21 mm on examination from February 02, 2022. Left breast three o'clock hypoechoic mass 2 cm from the nipple measures 8 by 5 x 7 mm previously 9 by7 x 7 mm on examination from February 02, 2022. Right MAMMOGRAM DIAGNOSTIC DARYA BILATERAL The right breast is extremely dense, which lowers the sensitivity of mammography. There is no evidence of suspicious masses, calcifications, or other abnormal findings in the right breast. Impression Bilateral MAMMOGRAM DIAGNOSTIC DARYA BILATERAL No mammographic evidence of malignancy. BI-RADS Category: 2 - Benign. Recommendation Resume annual screening mammography is recommended for both breasts. According to the National Cancer [place] Breast Cancer Risk Assessment Tool, this patient has a 26.7 % lifetime risk of developing breast cancer. She meets ACS criteria for annual supplemental screening with breast MRI. Next screening breast MRI would be due October 2024. 11/12/23: Result MRI BREAST BILATERAL W WO CONTRAST History Atypical lobular hyperplasia of breast Family hx-breast malignancy Dense breast tissue on mammogram Family medical history includes breast cancer in mother (age of onset: 42). Technique MR (magnetic resonance) imaging was performed utilizing multiple sequences. Following the intravenous administration of gadolinium, dynamic scanning was performed. Kinetic analysis was evaluated with[employer] software. Films Compared Mammogram and ultrasound dated 01/16/2023 an MRI dated 03/21/2022. Findings Left. The left breast has an extreme amount of fibroglandular tissue. There is mild background parenchymal enhancement. Postsurgical changes are noted in the left breast. Nonenhancing masses with intrinsicT1 hyperintensity predominantly in the retroareolar region are stable and favored to be benign. No suspicious mass or nonmass enhancement is seen. There is no axillary or internal mammary lymphadenopathy. Right. The right breast has an extreme amount of fibroglandular tissue. There is mild background parenchymal enhancement. A few nonenhancing masses with intrinsic T1 hyperintensity in the retroareolar rightbreast are stable and favored to be benign. No suspicious mass or nonmass enhancement is seen. There is no axillary or internal mammary lymphadenopathy. Impression No MRI evidence of malignancy in either breast. BI-RADS Category: 2 - Benign. Recommendation Resume annual screening mammography is recommended for both breasts, next due in on December 2023. Please note that diagnostic mammogram and ultrasound of the left breast was recommended on 01/16/2023. Screening breast MRI in 1 year is recommended for both breasts. I personally viewed and interpreted the mammographic films and concur with the above. Past Medical History: Diagnosis Date Allergic rhinitis good for few years Atypical lobular hyperplasia of breast 02/28/2022 Left breast Benign neoplasm of colon 06/08/2014 serrated polyps, repeat 2 yrs Complex sclerosing lesion of breast 09/25/2022 Grade II diastolic dysfunction 03/05/2019 By echo 02/2019 Paranoid schizophrenia, chronic condition (HCC) 1980 last hospitalized 2001 Vitamin D deficiency 01/19/2013 Past Surgical History: Procedure Laterality Date BIOPSY OF BREAST, OPEN Left 1990 Benign Disease COLONOSCOPY, DIAGNOSTIC (RECTUM) 06/08/2014 serrated polyps, repeat 2 yrs/COLONOSCOPY FLEXIBLE PROXIMAL DIAGNOSTIC performed by Tyrone Maria MD at [facility]COPY [facility] COLONOSCOPY, DIAGNOSTIC (RECTUM) 08/22/2016 COLONOSCOPY FLEXIBLE PROXIMAL DIAGNOSTIC performed by Chandrakant Sanches MD at ENDOSCOPY [facility] COLONOSCOPY, DIAGNOSTIC (RECTUM) 04/08/2023 normal, repeat 5 yrs / COLONOSCOPY FLEXIBLE PROXIMAL DIAGNOSTIC performed by Ritika Abbasi MD at ENDOSCOPY [facility] EGD, FLEXIBLE, DIAGNOSTIC 09/16/2023 normal/ESOPHAGOGASTRODUODENOSCOPY (EGD), FLEXIBLE, TRANSORAL, DIAGNOSTIC performed by Bernice Miranda DO at ENDOSCOPY [facility] EXC BREAST LESION RADMARK Left 05/23/[address] Bridges EXC BREAST LESION RADMARK Left 05/23/2022 EXCISION OF BREAST LESION RADIOLOGICAL MARKER performed by Laxmi Bridges MD at [facility] FINE NEEDLE ASPIRATION BIOPSY, W/O IMAGING GUIDANCE; 1ST LESION 08/05/2008 Left breast (benign) - Dr. Frannie NATHAN RIGIDUS CORRECTED WITH CHIELECTOMY Right 11/24/2020 CORRECTION HALLUX RIGIDUS, CHIELECTOMY WITHOUT IMPLANT performed by Krystal Buckley DPM at [facility] MAMMOGRAM BREAST NEEDLE BIOPSY CORE LEFT Left 02/28/2022 focal atypical lobular hyperplasia and focal fragments of complex sclerosing lesion/radial scar OTHER 1988 chin implant PUNCTURE DRAINAGE BREAST CYST Left 08/05/2008 Benign cellular findings Current Outpatient Medications Medication Sig Dispense Refill acetaminophen (TYLENOL) 325 MG Tablet Take 2 Tabs by mouth every 6 hours as needed for Pain or Fever. No more then 3000 mg in 24 hours 100 Tab 0 cholecalciferol, VIT D3, (VITAMIN D3) 1000 UNITS Tablet Take 1 Tab by mouth daily. 90 Tab 3 B-Complex TABS Take 1 Tab by mouth daily. 90 Tab 3 Sennosides (SENNA) 8.6 MG CAPS Take 1 Tab by mouth 2 times a day as needed for Constipation. 40 Cap5 Docusate Sodium 100 MG Oral Capsule (Colace) Take one capsule in the am by mouth and may take one additional capsule by mouth in pm as needed for constipation 180 Cap 3 Perphenazine 16 MG Oral Tablet Take 2 Tablets by mouth in the morning and 2 Tablets before bedtime. LORazepam 0.5 MG Oral Tablet (Ativan) Take 1 Tablet by mouth in the morning and 1 Tablet before bedtime. Artificial Tears 0.5-0.6 % Ophthalmic Solution (Polyvinyl Alcohol-Povidone) Instill 1 Drop into eye3 times a day as needed for Dry eyes. Patient may self administer 15 mL 1 FLUoxetine HCl 40 MG Oral Capsule (PROzac) Latuda 120 MG Oral Tablet Take 1 Tablet by mouth daily. Takes in the evening [facility] health Incontinence Pads Use as directed. 48 Each 11 Myrbetriq 50 MG Oral Tablet Extended Release 24 Hour (Mirabegron ER) Take 1 Tablet by mouth in the morning. 30 Tablet 11 Loratadine 10 MG Oral Tablet (Claritin) Take 1 Tablet by mouth in the morning. For 2-4 weeks and stop. 28 Tablet 0 Dextromethorphan-guaiFENesin 10-100 MG/5ML Oral Liquid (Robitussin DM) Take 10 mL by mouth every 4 hours as needed for Cough. 473 mL 0 Triamcinolone Acetonide 55 MCG/ACT Nasal Aerosol (Nasacort Allergy 24HR) Administer 2 Sprays into each nostril in the morning. 17 mL 0 No current facility-administered medications for this visit. Allergies as of 04/21/2024 - Reviewed 04/21/2024 Allergen Reaction Noted Dogs [dog dander] 12/08/2018 Social History Tobacco Use Smoking status: Never Smokeless tobacco: Never Vaping Use Vaping status: Never Used Substance Use Topics Alcohol use: No Comment: NONE Drug use: No Family History Problem Relation Name Age of Onset Mastectomy Mother 42 unilateral Breast Cancer Mother 41 Unknown Cancer Cousin (Paternal) ROS: GEN: no weight loss, fever, fatigue HEENT: no changes in vision or hearing, no sinus problems, no sore throat, no hoarseness RESPIRATORY: no cough, wheezing, SOB or change in breathing CARDIOVASCULAR: no exertional chest pain, dyspnea, palpitations GI: no melena, hemetemesis, no vomiting or diarrhea : no dysuria, hematuria, frequency MUSCULOSKELETAL: no change in joint pains, no new arthritis PSYCHIATRIC: paranoid schizophrenia HEME: no bleeding tendency, no clotting tendency NEURO: no significant headache, no seizures , no tremors SKIN: no new rashes, no itching PHYSICAL EXAMINATION Wt 78.7 kg (173 lb 6.4 oz) | BMI 28.86 kg/m | BSA 1.9 m Constitutional: alert, healthy Head: normocephalic, atraumatic Eyes: conjunctiva non-injected, sclera white Ears: pinna normal shape Neck: supple, no adenopathy Abdomen: soft, non-tender Back: normal curvature Extremities: no edema Neuro: alert, gait normal, motor normal BREAST EXAMINATION: B cup size Right Breast: Right Breast: Masses noted: No Post XRT edema: No Post XRT erythema: No Other palpable abnormality: No Skin: Skin retraction: No Peau d'orange: No Telangectasia: No Scar(s) present: No Other changes: No Right Nipple: Nipple inversion: No Pagets: No Nipple discharge: No Right Lymph Nodes: Arm edema: No Palpable axillary adenopathy: No Palpable supraclavicular adenopathy: No Previous axillary incision: No Left Breast: Left Breast: Masses noted: Yes, at 12:00 3 cm from nipple, there is a rounded 1.5 cm area c/w imaging finding Post XRT edema: No Post XRT erythema: No Other palpable abnormality: No Skin: Skin retraction: Yes, at upper inner quadrant site Peau d'orange: No Telangectasia: No Scar(s) present: Yes, medial periareolar and upper inner quadrant and from shave biopsy upper innerbreast Other changes: No Left Nipple: Nipple inversion: No Pagets: No Nipple discharge: No Left Lymph Nodes: Arm edema: No Palpable axillary adenopathy: No Palpable supraclavicular adenopathy: No Previous axillary incision: No RISK FACTORS FOR BREAST CANCER: Family history of breast cancer: Yes, mother Known or suspected genetic mutation: Yes, possible Previous suspicious breast biopsies: No Safekeeping Clerk factors: Yes, nulliparous Other: extremely dense breast tissue IMPRESSION: 69 yr old woman with elevated risk of breast cancer up to 46.38% by Viki yoon dueto extremely dense tissue on mammography, personal history of a complex sclerosing lesion/ ALH and family history of premenopausal breast cancer. Undergoing high risk screening- mammographic and MRI screening. Next mammogram due December 2024 - will postpone to late January Next MRI due Oct 2024- order placed Chemoprevention discussed at previous visit, pt declined Genetic testing negative PLAN: Bilateral breast MRI due 11/12/24 Bilateral mammogram due 01/19 as annual screening - would postpone to late January to try and get on alternating pattern with MRI (goal for mammogram is April). Rerun numbers in 2026 F/u 1 yr. Laxmi Bridges M.D. 04/21/2024 1:37 PM documented in this encounter Nursing Notes * Susan Burroughs MED ASSIST - 04/21/2024 1:15 PM EDT Chief Complaint Patient presents with Follow Up [facility]. left breast biopsy on 05/23/22 for left breast atypical lobular hyperplasia. Verified patient. documented in this encounter Plan of Treatment Upcoming Encounters Date Type Department Care Team (Late st Contact Info) Description 05/01/2024 10:40 AM EDT Office Visit General Internal Medicine [facility] [place] [address] [place] [address] Gisela Boogie PA-C [address] [place] [address] 05/19/2024 1:00 PM EDT Office Visit General Internal Medicine [facility] [place] [address] [place] [address] Naseem Drummond MD [address] [place] [address] 11/12/2024 11:30 AM EST Imaging Radiology [address] [facility] [place] [address] 02/15/2025 11:15 AM EDT Imaging Radiology [address] [place] [address] Scheduled Orders Name Type Priority Associated Diagnoses Orde r Schedule MAMMOGRAM SCREENING DARYA BILATERAL Medical Imaging Routine Encounter for screening mammogram for malignant neoplasm of breast Expected: 02/15/2025 (Approximate), Expires: 05/21/2025 MRI BREAST BILATERAL W WO CONTRAST Medical Imaging Routine Atypical lobular hyperplasia of breast Family hx-breast malignancy Extremely dense tissue of both breasts on mammography Expected: 11/12/2024 (Approximate), Expires: 05/21/2025 Scheduled Procedures Name Priority Associated Diagnoses Date/Ti [...] Cancer Screening 04/08/2028 Lipid Panel 07/08/2028 07/08/2023, 05/0 03/2021, 03/07/2020, Additional history exists DTaP,Tdap,and Td [...] Not on filedocumented as of this encounter Visit Diagnoses Diagnosis Atypical lobular hyperplasia of breast- Primary Hypertrophy of breast Family hx-breast malignancy Family history of malignant neoplasm of breast Extremely dense tissue of both breasts on mammography Encounter for screening mammogram for malignant neoplasm of breast Other screening mammogram documented in this encounter Care Teams Refinery Operator Visbreaking Relationship Specialty Start Date End Date Naseem Drummond MD [address] [place] [address] PCP - General Internal Medicine 04/28/13 documented as of this encounter"
--- OUTSIDE RECORDS SUMMARY | 2024-04-23 08:16 | External Medical Summary | Summary of Care ---
Author Name Unknown Organization [facility] Address [address] [place] [address] Phone [phone] Care Team Providers Care Barrel Rifler Hook Name Role Phone Naseem Drummond MD Primary Care Provider + Reason for Referral * Precert (Within 10 days (routine)) - Authorized Specialty Diagnoses / Procedures Referred By Armond styles Referred To Contact Radiology Diagnoses Atypical lobular hyperplasia of breast Family hx-breast malignancy Extremely dense tissue of both breasts on mammography Procedures MRI BREAST BILATERAL W WO CONTRAST Laxmi Bridges MD [address] [place] [address] Referral ID Status Reason Start Date Expiration Date V isits Requested Visits Authorized [id number] Authorized 11/12/2024 999 999 Reason for Visit [...] (ALH) of breast Naseem Drummond MD [address] [place] [address] Referral ID Status Reason Start Date Expiration Date Visits Requested Visits Authorized [id number] Authorized Specialty Services Required 11/18/2023 999 999 Encounter Details Date Type Department Care Team (Late st Contact Info) Description 04/21/2024 1:00 PM EDT Office Visit General Surgery, [facility] [address] [place] [address] Laxmi Bridges MD [address] [place] [address] Atypical lobular hyperplasia of breast*; Family hx-breast [...] chronic condition Overview: last hospitalized 2011 - [facility] Sees Dr. Patrica Ruvalcaba 09/2018-living in residential [...] mRNA, LNP-s, No Pre serve, 2-Dose Series ([place]) 08/06/2022,08/22/2021,12/08/2020,11/17 PPD 04/29/2013 Pneumococcal Conjugate Vacc, 13 [...] from the original note were not included. [facility] BREAST [facility]INIC NOTES SUBJECTIVE: Nury Pfeiffer [...] February 02, 2022. [facility] - stopped giving [...] both breasts. According to the National Cancer Lucas Breast Cancer Risk Assessment Tool, this patient [...] scanning was performed. Kinetic analysis was evaluated with[employer] software. Films Compared Mammogram and ultrasound dated [...] performed by Tyrone Maria MD at [facility] COLONOSCOPY, DIAGNOSTIC (RECTUM) 08/22/2016 COLONOSCOPY FLEXIBLE PROXIMAL DIAGNOSTIC performed by Chandrakant Sanches MD at [facility] COLONOSCOPY, DIAGNOSTIC (RECTUM) 04/08/2023 normal, repeat 5 yrs / COLONOSCOPY FLEXIBLE PROXIMAL DIAGNOSTIC performed by Ritika Abbasi MD at [facility] EGD, FLEXIBLE, DIAGNOSTIC 09/16/2023 normal/ESOPHAGOGASTRODUODENOSCOPY (EGD), FLEXIBLE, TRANSORAL, DIAGNOSTIC performed by Bernice Miranda DO at [facility] EXC BREAST LESION RADMARK Left 05/23/[address] Bridges EXC BREAST LESION RADMARK Left 05/23/2022 EXCISION OF BREAST LESION RADIOLOGICAL MARKER performed by Laxmi Bridges MD at [facility] FINE NEEDLE ASPIRATION BIOPSY, W/O IMAGING GUIDANCE; 1ST LESION 08/05/2008 Left breast (benign) - Dr. Frannie NATHAN RIGIDUS CORRECTED WITH CHIELECTOMY Right 11/24/2020 CORRECTION HALLUX RIGIDUS, CHIELECTOMY WITHOUT IMPLANT performed by Krystal Buckley DPM at [facility] MAMMOGRAM BREAST NEEDLE BIOPSY CORE LEFT [...] by mouth daily. Takes in the evening [facility] health Incontinence Pads Use as directed. [...] Yes, possible Previous suspicious breast biopsies: No Hydroelectric Operator factors: Yes, nulliparous Other: extremely dense breast [...] AM EDT Office Visit General Internal Medicine [facility] [place] [address] [place] [address] Gisela Boogie PA-C [address] [place] [address] 05/19/2024 1:00 PM EDT Office Visit General Internal [facility] [place] [address] [place] [address] Naseem Drummond MD [address] [place] [address] [address] 11/12/2024 11:30 AM EST Imaging Radiology [address] [facility] [place] [address] 02/15/2025 11:15 AM EDT Imaging Radiology [address] [place] [address] Scheduled Orders Name Type Priority Associated Diagnoses [...] mammogram documented in this encounter Care Teams Barrel Rifler Hook Relationship Specialty Start Date End Date Naseem Drummond MD [address] [place] [address] PCP - General Internal Medicine 04/28/13 documented as of this encounter"
--- OUTSIDE RECORDS SUMMARY | 2024-04-23 08:16 | External Medical Summary | Summary of Care ---
Author Name Unknown Organization [facility] Address [address] [place] [address] Phone [phone] Care Team Providers Care Hospital Admitting Clerk Name Role Phone Naseem Drummond MD Primary Care Provider + Reason for Visit * Reason Onset Date Comments Test Results 04/07/2024 Genetic Counseli Encounter Details Date Type Department Care Team (Late st Contact Info) Description 04/07/2024 Telephone Genetics HemOnc, [facility] [address] [facility] [place] [id number] Yesenia Riley, [place] [address] [facility] [place] [address] Test Results (Genetic Counseling ) Allergies Active Allergy Reactions Criticality Noted Date Comments Dog Dander 12/08/2018 Sneezing and congestion documented as of this encounter (statuses as of 04/10/2024) Medications Medication Sig Dispensed Refills Start Date [...] as of this encounter (statuses as of 04/10/2024) Active Problems Problem Noted Date Diagnosed Date 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 Patrica Ruvalcaba 09/2018-living in residential treatment home. Has new PCP. documented as of this encounter (statuses as of 04/10/2024) Resolved Problems Problem Noted Date Diagnosed Date [...] as of this encounter (statuses as of 04/10/2024) Immunizations Name Administration Dates Next Due COVID-19 mRNA, LNP-s, No Pre serve, 2-Dose Series (crealytics) 08/06/2022,08/22/2021,12/08/2020,11/17 PPD 04/29/2013 Pneumococcal Conjugate Vacc, 13 [...] money to get more. Never true 09/25/2022 Sex and Gender Information Value Date Recorded Sex Assigned at Female 07/15/2019 8:40 AM EDT Gender Identity Female 07/15/2019 8:40 AM EDT Sexual Orientation Straight 07/15/2019 8: 40 AM EDT Job Start Date Occupation Industry Not on file Not on file Not on file documented as of this encounter Miscellaneous Notes * Telephone Encounter - Yesenia Riley, [place] - 04/10/2024 1:44 PM EDT Spoke to Kavin Mendez Personal Longterm Caregiver (Meliza) this afternoon re: Nury's genetic testresults. She mentioned that Valentina (caregiver at living facility) would be back in the office on Saturday. I will attempt for result disclosure at that time. Yesenia Riley MS, [facility] Licensed, Certified Genetic Counselor Cancer Genetics Risk Assessment [facility] at [facility] (P) [phone] | (F) [phone] | (E) [email or web address] * Telephone Encounter - Yesenia Riley MS - 04/07/2024 3:19 PM EDT Genetic Test Result 04/07/2024: Negative Test Ordered: Multi-Cancer Panel at [facility] (70 genes) Genes Included: AIP, ALK, APC, LUDA, AXIN2, BAP1, BARD1, BLM, BMPR1A, BRCA1, BRCA2, BRIP1, CDC73, CDH1, CDK4, CDKN1B, CDKN2A (p14ARF), CDKN2A ([id number]), CHEK2, CTNNA1, DICER1, EGFR, EPCAM, FH, FLCN, GREM1, HOXB13, KIT, LTZR1, MAX, MBD4, MEN1, MET, MITF, MLH1, MSH2, MSH3, MSH6, MUTYH, NF1, NF2, NTHL1, PALB2, PDGFRA, PMS2, POLD1, POLE, POT1, JRTQZ8T, PTCH1, PTEN, RAD51C, RAD51D, RB1, RET, SDHA, SDHAF2, SDHB, SDHC, SDHD, SMAD4, SMARCA4, SMARCB1, SMARCE1, STK11, SUFU, NAFP867, TP53, TSC1, TSC2, VHL No hereditary cancer [...] and for a given breast density composition. Tyrer-Cuzick v8 Lifetime Risk by Density Breast Composition [...] result and pedigree withrelatives. Left message with manager fixed income / relative and I will attempt to reach the patient again at a later date. Spoke with Meliza from [facility] and she took a message to pass along to Madi (caregiver at living facility) and Ms. Pfeiffer. Should they not return my phone call in the next few days, I will reach out again. Yesenia Riley MS, [facility] Licensed, Certified Genetic Counselor [facility]24 documented in this encounter Plan of Treatment Upcoming Encounters Date Type Department Care Team (Late st Contact Info) Description 04/21/2024 1:00 PM EDT Office Visit General Surgery, [facility] [address] [place] [address] Laxmi Bridges MD [address] [place] [address] 05/19/2024 1:00 PM EDT Office Visit General Internal Medicine [facility] [address] [facility] [place] [address] Naseem Drummond MD [address] [facility] [place] [address] Scheduled Procedures Name Priority Associated Diagnoses Date/Ti [...] Cancer Screening 04/08/2028 Lipid Panel 07/08/2028 07/08/2023, 0503/2021, 03/07/2020, Additional history exists DTaP,Tdap,and Td Vaccines [...] filedocumented as of this encounter Care Teams Hospital Admitting Clerk Relationship Specialty Start Date End Date Naseem Drummond MD [address] [place] [address] PCP - General Internal Medicine 04/28/13 documented as of this encounter"
--- OUTSIDE RECORDS SUMMARY | 2024-04-23 08:16 | External Medical Summary ---
Author Name Unknown Address Unknown Organization : Laboratory Report Ordering Provider Test Date Status DINORAH KEITH 03/28/2024 08:48:44 Correction Saliva sample to be collecte d at home via patient. Observation Date Value Abnormality Reference (Units ) Status REFERENCE LAB SCANNED REPORT 03/28/2024 08:48:44 RESULT SCAN Correction Changed result: Previously r eported as RESULT SCAN on 04/08/2024 at 0857 EDT. Performing Location
[2024-04-23 08:25] LABS: Amphetamines+Metham, Urine Neg (Neg); Barbiturates, Urine Neg (Neg); Benzodiazepine, Urine Neg (Neg); Cocaine, Urine Neg (Neg); Fentanyl, Urine Neg (Neg); MDMA (Ecstacy), Urine Neg (Neg); Marijuana, Urine Neg (Neg); Methadone, Urine Neg (Neg); Opiate, Urine Neg (Neg); Phencyclidine, Urine Neg (Neg)
[2024-04-23 08:37] LABS: Adenovirus PCR Not Detected (NotDetected); Bordetella parapertussis PCR Not Detected (NotDetected); Bordetella pertussis PCR Not Detected (NotDetected); Chlamydia pneumoniae PCR Not Detected (NotDetected); Coronavirus 229E PCR Not Detected (NotDetected); Coronavirus CoV-2 (COVID19)PCR Not Detected (NotDetected); Coronavirus HKU1 PCR Not Detected (NotDetected); Coronavirus NL63 PCR Not Detected (NotDetected); Coronavirus OC43PCR Not Detected (NotDetected); Human Metapneumovirus PCR Not Detected (NotDetected); Influenza A PCR Not Detected (NotDetected); Influenza B PCR Not Detected (NotDetected); Mycoplasma pneumoniae PCR Not Detected (NotDetected); Parainfluenza Virus 1 PCR Not Detected (NotDetected); Parainfluenza Virus 2 PCR Not Detected (NotDetected); Parainfluenza Virus 3 PCR Not Detected (NotDetected); Parainfluenza Virus 4 PCR Not Detected (NotDetected); Respiratory Syncytial VirusPCR Not Detected (NotDetected); Rhinovirus/Enterovirus PCR Not Detected (NotDetected)
[2024-04-23] MEDS: cefTRIAXone SODIUM 2,000 MG/50 ML BAG IV STA (09:01)
[2024-04-23] MEDS: LURASIDONE HCL 20 MG TAB PO SCH (10:23)
[2024-04-23] MEDS: LORazepam 0.5 MG TAB PO STA (10:23)
--- NOTE | 2024-04-23 11:03 | Electrocardiogram Report ---
Test Reason : Blood Pressure : / mmHG Vent. Rate : 059 BPM Atrial Rate : 059 BPM P-R Int : 166 ms QRS Dur : 088 ms QT Int : 442 ms P-R-T Axes : 038 074 062 degrees QTc Int : 437 ms Sinus bradycardia Low voltage QRS Poor R wave progression, consider anterior CA vs. lead placement vs. LVH Abnormal ECG When compared with ECG of 19-MAR-2024 09:12, Aberrant conduction is no longer Present Confirmed by Mathew Devine ([id number]) on 04/23/2024 11:02:31 AM Referred By: Andrea Vale Confirmed By:Mathew Devine
--- NOTE | 2024-04-23 11:14 | History & Physical Report ---
Date of Service April 23, 2024 Assessment & Plan (1) Acute paranoia: Plan: This is a 69 y/o female with chronic paranoid schizophrenia, chronic leukopenia, and other history as outlined below who was brought to the ED today via EMS due to increasing paranoia, particularly over the last 48 hours. Work-up in the ED was essentially negative other than UA showing leukocytes, no bacteria. Urine tox screen, respiratory panel, CT head were all negative. Pt has chronic leukopenia due to her anti-psychotics for which she has seen hematology in the past. Due to her worsening paranoia, which has resulted in confrontations with the staff at [facility], she was sent to the ED and the facility does not feel equipped to have her back at this time per EMS report. - Admit to med surg - Consult psychiatry for recommendations - pt reports following with outpatient psychiatry, CAROL Clark, regularly and taking medications as prescribed - Continue outpatient regimen for now pending psychiatry input - Consult case management for assistance with discharge planning as it is unclear it pt will be able to return to [facility] at this time - Await urine culture due to abnormal UA - UTI seems less likely in view of no symptoms, pt afebrile, no bacteria visualized on UA, but will continue empiric ceftriaxone for now pending results - Labs in the AM to follow leukopenia and ensure stability (2) Chronic paranoid schizophrenia: Plan: Chronic - see plan for #1 (3) Leukocytopenia: Plan: Chronic - thought to be medication-induced (4) Abnormal urinalysis: Plan: See plan for #1 Plan Pt seen and reviewed with collaborating physician, Dr. Berry. Plan of care discussed and as outlined above. Code Status: Full code DVT Prophylaxis: Lovenox Dispo: med surg Case management consulted as may need assistance with d/c planning. Tiffany Lr PA-C History of Present Illness Chief Complaint: increasing paranoia and agitation Primary Care Provider: Dr. Naseem Drummond This is a 69 y/o female with chronic paranoid schizophrenia, chronic leukopenia, and other history as outlined below who was brought to the ED today via EMS due to increasing paranoia, particularly over the last 48 hours. Pt resides at [facility] and reports that she has been there for six years. She reports that the first four years were good, but that over the last couple of years, "it's gone downhill because one of the staff has a crush on me." Her most recent concern is that the staff have been giving her "psychedelics" and "slipping me crack cocaine to punish me with nightmares." She reports that she has been taking her chronic medicines as prescribed even though she's concerned that staff is "poisoning" it. She tells me that it may be best if she "disappears from there for a while" in reference to her concerns about the [facility]. She has no specific physical complaints at this time. She reports being "out of shape" so she has not been exercising like she usually does, feels mildly short of breath with exertion but states this is not new. Her appetite is good. She has had issues with constipation previously but reports that this has resolved. Denies chest pain, N/V, dysuria, PARSON, dizziness, peripheral edema. Pt's outpatient Epic records and prior [facility] records were extensively reviewed to assist with the history. Allergies Allergy/AdvReac Type Severity Reaction Status Date / Time animal dander Allergy Unknown Unknown Unverified 04/23/24 09:01 Home Medications Medication Instructions Recorded Confirmed Type acetaminophen 325 mg tablet 650 mg PO Q6H PRN Pain 12/15/20 04/23/24 History cholecalciferol (vitamin D3) 25 25 mcg PO DAILY 12/15/20 04/23/24 History mcg (1,000 unit) tablet (Vitamin D3) perphenazine 16 mg tablet 32 mg PO BID 12/15/20 04/23/24 History sennosides 8.6 mg tablet (senna) 8.6 mg PO BID PRN Constipation 12/15/20 04/23/24 History vitamin B complex 1 tab PO DAILY 12/15/20 04/23/24 History carbamide peroxide 6.5 % ear drops 1 drp otic (ear) UD 03/19/24 04/23/24 History (Debrox) carboxymethylcellulose sodium 1 % 1 drp ophthalmic (eye) TID PRN Dry 03/19/24 04/23/24 History eye drops (Artificial Tears Eye(S) (carboxymethylcellulose)) dextromethorphan-guaifenesin 10 10 ml PO Q4H PRN Cough 03/19/24 04/23/24 History mg-100 mg/5 mL oral syrup docusate sodium 100 mg capsule 100 mg PO QAM 03/19/24 04/23/24 History fluoxetine 40 mg capsule 40 mg PO DAILY 03/19/24 04/23/24 History mirabegron 50 mg tablet,extended 50 mg PO DAILY 03/19/24 04/23/24 History release 24 hr (Myrbetriq) triamcinolone acetonide 55 mcg 2 spray intranasal DAILY 03/19/24 04/23/24 History nasal spray aerosol (Nasacort Allergy) lorazepam 0.5 mg tablet 0.5 mg PO BID ANXIETY 04/23/24 04/23/24 History lurasidone 120 mg tablet 120 mg PO DAILY 04/23/24 04/23/24 History Past Med/Surg History Problem List (Updated 04/23/24 @ 12:11 by Peyton Lr PA-C) Abnormal urinalysis Acute UTI (urinary tract infection) (Acute) Acute paranoia (Acute) Acute confusion (Acute) Leukocytopenia (Acute) Chronic paranoid schizophrenia (Acute 05/21/11) Hypokalemia Visual hallucinations (Acute) Medical History (Updated 04/23/24 @ 12:11 by Peyton Lr PA-C) Grade II diastolic dysfunction Allergic rhinitis Atypical lobular hyperplasia (ALH) of breast Complex sclerosing lesion of breast Hearing loss Vitamin D deficiency Surgical History (Updated 04/23/24 @ 11:12 by Peyton Lr PA-C) History of foot surgery History of breast lump/mass excision H/O breast biopsy Family History (Updated 04/23/24 @ 11:13 by Peyton Lr PA-C) Mother Breast cancer Social History (Updated 04/23/24 @ 11:13 by Peyton Lr PA-C) Smoking Status: Never smoker Hx Alcohol Use: No Preferred Language: Setswana Communication Ability: Effective Visual Impairment: No Limitations Sample Steamer Required: No Beliefs That Will Affect Care: None marital status: Single Current Living Situation: Personal Care Facility current occupational status: disabled Feels Safe at Home: No Assistive Devices: Glasses Review of Systems Review of Systems: All systems reviewed & are unremarkable except as noted in HPI & below Physical Exam Physical Exam: General: awake, alert, NAD, cooperative, slightly disheveled HEENT: no scleral icterus, moist oral mucosa Neck: supple, trachea midline Heart: RRR, No M/G/R Lungs: CTA bilaterally, no W/R/R Abdomen: soft, NT, +BS Extremities: no pedal edema, distal pulses intact and equal Skin: no jaundice Neurologic: no focal deficits, moving all extremities Psychiatric: +paranoid delusions, +limited insight, +limited judgment, +pleasant affect Results & Data Results & Data Vital Signs (Past 12 Hours) Vital Signs Temp Pulse Resp BP Pulse Ox O2 Del Method 04/23/24 09:03 54 L 15 138/88 96 04/23/24 08:13 57 L 04/23/24 07:19 65 14 95 Room Air 04/23/24 07:05 36.6 C 65 14 136/85 95 Room Air Laboratory Results Lab Results 04/23/24 04/23/24 04/23/24 Range/Units 07:00 07:27 07:28 WBC 1.59 L (4.8-10.8) K/ul RBC 4.17 L (4.20-5.40) M/uL Hgb 12.6 (12.0-16.0) g/dl Hct 36.9 L (37.0-47.0) % MCV 88.5 (80.0-100.0) fL MCH 30.2 (25.0-34.0) pg MCHC 34.1 (32.0-36.0) g/dL RDW Std Deviation 40.5 (36.4-46.3) fL RDW Coeff of Nayeli 12.5 (11.5-14.5) % Plt Count 186 (130-400) K/uL MPV 9.4 (9.4-12.4) fL Immature Gran % (Auto) 0.0 % Neut % (Auto) 36.5 % Lymph % (Auto) 52.8 % [place] % (Auto) 10.7 % Eos % (Auto) 0.0 % Baso % (Auto) 0.0 % Neut # (Auto) 0.58 L* (1.40-6.50) K/uL Lymph # (Auto) 0.84 L (1.20-3.40) K/uL [place] # (Auto) 0.17 (0.11-0.59) K/uL Eos # (Auto) 0.00 (0.00-0.50) K/uL Baso # (Auto) 0.00 (0.00-0.20) K/uL Immature Gran # (Auto) 0.00 L (0.01-0.20) K/uL PT 10.9 (9.0-12.0) Seconds INR 1.0 (0.9-1.1) Sodium 141 (136-145) mmol/L Potassium 4.3 (3.5-5.1) mmol/L Chloride 109 H (98-107) mmol/L Carbon Dioxide 27 (21-32) mmol/L Anion Gap 5 (3-11) BUN 17 (6-23) mg/dl Creatinine 0.93 (0.6-1.2) mg/dl Est Cr Clr Drug Dosing 60.6 ml/min Est GFR ( Amer) 72.2 ml/min Est GFR (Non-Af Amer) 62.3 ml/min BUN/Creatinine Ratio 18.3 (10-20) Glucose 119 H (70-99(Fasting)) mg/dl POC Glucose 115 H (70-99) mg/dl Lactate (0.4-2.0) mmol/L Calcium 9.0 (8.6-10.3) mg/dl Magnesium 1.9 (1.7-2.4) mg/dl Total Bilirubin 0.5 (0.2-1.0) mg/dl AST 19 (13-39) U/L ALT 11 (7-52) U/L Alkaline Phosphatase 78 (34-104) U/L Troponin I High Sens 2.8 (0-14) pg/ml Total Protein 6.5 (6.0-8.3) gm/dl Albumin 3.8 (3.4-5.0) gm/dl Globulin 2.7 (2.5-4.0) gm/dl Albumin/Globulin Ratio 1.4 (0.9-2) Procalcitonin (0-0.5) ng/ml TSH 0.585 (0.300-4.500) uIu/ml Urine Color Urine Appearance (Clear) Urine pH (4.5-7.5) Ur Specific Bradford (1.000-1.030) Urine Protein (Negative) Urine Glucose (UA) (Negative) Urine Ketones (Negative) Urine Blood (Negative) Urine Nitrite (Negative) Urine Bilirubin (Negative) Urine Urobilinogen (Negative) Ur Leukocyte Esterase (Negative) Urine WBC (Auto) (0-5) /hpf Urine RBC (Auto) (0-2) /hpf U Hyaline Cast (Auto) (0-2) /lpf U Epithel Cells (Auto) (0-2) /hpf Urine Bacteria (Auto) (None Seen) Urine Opiates Screen Neg (Neg) Ur Methadone, Qual Neg (Neg) Urine Fentanyl Screen Neg (Neg) Urine Barbiturates Neg (Neg) Ur Phencyclidine (PCP) Neg (Neg) U Amphetamin/Meth Scrn Neg (Neg) MDMA (Ecstasy) Screen Neg (Neg) U Benzodiazepines Scrn Neg (Neg) Ur Cocaine Metabolite Neg (Neg) U Marijuana (THC) Screen Neg (Neg) Adenovirus (PCR) (NotDetected) B. pertussis DNA (PCR) (NotDetected) B.parapertussis DNA PCR (NotDetected) C. pneumoniae DNA (PCR) (NotDetected) Coronavirus OC43 (PCR) (NotDetected) Coronavirus HKU1 (PCR) (NotDetected) Coronavirus 229E (PCR) (NotDetected) SARS-CoV-2 (PCR) (NotDetected) Coronavirus NL63 (PCR) (NotDetected) Human Metapneumovir PCR (NotDetected) Influenza Type A (PCR) (NotDetected) Influenza Type B (PCR) (NotDetected) M. pneumoniae (PCR) (NotDetected) Parainfluenza 1 (PCR) (NotDetected) Parainfluenza 2 (PCR) (NotDetected) Parainfluenza 3 (PCR) (NotDetected) Parainfluenza 4 (PCR) (NotDetected) RSV (PCR) (NotDetected) Entero/Rhino (PCR) (NotDetected) 04/23/24 04/23/24 04/23/24 Range/Units 07:35 08:04 08:33 WBC (4.8-10.8) K/ul RBC (4.20-5.40) M/uL Hgb (12.0-16.0) g/dl Hct (37.0-47.0) % MCV (80.0-100.0) fL MCH (25.0-34.0) pg MCHC (32.0-36.0) g/dL RDW Std Deviation (36.4-46.3) fL RDW Coeff of Nayeli (11.5-14.5) % Plt Count (130-400) K/uL MPV (9.4-12.4) fL Immature Gran % (Auto) % Neut % (Auto) % Lymph % (Auto) % [place] % (Auto) % Eos % (Auto) % Baso % (Auto) % Neut # (Auto) (1.40-6.50) K/uL Lymph # (Auto) (1.20-3.40) K/uL [place] # (Auto) (0.11-0.59) K/uL Eos # (Auto) (0.00-0.50) K/uL Baso # (Auto) (0.00-0.20) K/uL Immature Gran # (Auto) (0.01-0.20) K/uL PT (9.0-12.0) Seconds INR (0.9-1.1) Sodium (136-145) mmol/L Potassium (3.5-5.1) mmol/L Chloride (98-107) mmol/L Carbon Dioxide (21-32) mmol/L Anion Gap (3-11) BUN (6-23) mg/dl Creatinine (0.6-1.2) mg/dl Est Cr Clr Drug Dosing ml/min Est GFR ( Amer) ml/min Est GFR (Non-Af Amer) ml/min BUN/Creatinine Ratio (10-20) Glucose (70-99(Fasting)) mg/dl POC Glucose (70-99) mg/dl Lactate 0.8 0.8 (0.4-2.0) mmol/L Calcium (8.6-10.3) mg/dl Magnesium (1.7-2.4) mg/dl Total Bilirubin (0.2-1.0) mg/dl AST (13-39) U/L ALT (7-52) U/L Alkaline Phosphatase (34-104) U/L Troponin I High Sens (0-14) pg/ml Total Protein (6.0-8.3) gm/dl Albumin (3.4-5.0) gm/dl Globulin (2.5-4.0) gm/dl Albumin/Globulin Ratio (0.9-2) Procalcitonin < 0.02 (0-0.5) ng/ml TSH (0.300-4.500) uIu/ml Urine Color Yellow Urine Appearance Clear (Clear) Urine pH 6.0 (4.5-7.5) Ur Specific [place] 1.020 (1.000-1.030) Urine Protein Negative (Negative) Urine Glucose (UA) Negative (Negative) Urine Ketones Trace H (Negative) Urine Blood Negative (Negative) Urine Nitrite Negative (Negative) Urine Bilirubin Negative (Negative) Urine Urobilinogen Negative (Negative) Ur Leukocyte Esterase 2+ H (Negative) Urine WBC (Auto) 11-20 H (0-5) /hpf Urine RBC (Auto) 0-2 (0-2) /hpf U Hyaline Cast (Auto) 0-2 (0-2) /lpf U Epithel Cells (Auto) 0-2 (0-2) /hpf Urine Bacteria (Auto) None Seen (None Seen) Urine Opiates Screen (Neg) Ur Methadone, Qual (Neg) Urine Fentanyl Screen (Neg) Urine Barbiturates (Neg) Ur Phencyclidine (PCP) (Neg) U Amphetamin/Meth Scrn (Neg) MDMA (Ecstasy) Screen (Neg) U Benzodiazepines Scrn (Neg) Ur Cocaine Metabolite (Neg) U Marijuana (THC) Screen (Neg) Adenovirus (PCR) Not Detected (NotDetected) B. pertussis DNA (PCR) Not Detected (NotDetected) B.parapertussis DNA PCR Not Detected (NotDetected) C. pneumoniae DNA (PCR) Not Detected (NotDetected) Coronavirus OC43 (PCR) Not Detected (NotDetected) Coronavirus HKU1 (PCR) Not Detected (NotDetected) Coronavirus 229E (PCR) Not Detected (NotDetected) SARS-CoV-2 (PCR) Not Detected (NotDetected) Coronavirus NL63 (PCR) Not Detected (NotDetected) Human Metapneumovir PCR Not Detected (NotDetected) Influenza Type A (PCR) Not Detected (NotDetected) Influenza Type B (PCR) Not Detected (NotDetected) M. pneumoniae (PCR) Not Detected (NotDetected) Parainfluenza 1 (PCR) Not Detected (NotDetected) Parainfluenza 2 (PCR) Not Detected (NotDetected) Parainfluenza 3 (PCR) Not Detected (NotDetected) Parainfluenza 4 (PCR) Not Detected (NotDetected) RSV (PCR) Not Detected (NotDetected) Entero/Rhino (PCR) Not Detected (NotDetected) Diagnostic Findings Chest X-Ray 04/23/24 07:18 SINGLE VIEW CHEST CLINICAL HISTORY: Change in mental status. FINDINGS: An AP, portable, upright chest radiograph is compared to study dated 03/19/2024. The cardiomediastinal silhouette is top normal for projection. Chronic interstitial thickening is similar to previous. The lungs and pleural spaces are clear. No pneumothorax is seen. The skeletal structures are osteopenic. The bony thorax is grossly intact. IMPRESSION: No active disease in the chest. ACT 112: Negative or not required by law. Electronically signed by: Efe Seals M.D. 04/23/2024 8:[address] 04/23/24 07:18 CT head/brain wo con CLINICAL HISTORY: altered mental status Technique: Contiguous axial CT images of the head were acquired from the base of the skull to the vertex without intravenous contrast administration. Images were viewed in brain, subdural and bone windows. Automated dose lowering techniques and/or adjustment according to patient size were utilized for this exam. Comparison: None available at the time of this dictation. Findings: The ventricles, basal cisterns, and cerebral sulci are normal. There is no acute intracranial hemorrhage or evidence of acute territorial infarction. Neither mass effect, shift of the midline structures, nor abnormal extra-axial fluid collections are shown. Imaged portions of the paranasal sinuses and mastoid air cells are clear. The orbits appear normal. There are no acute fractures of the calvaria or scalp swelling. Impression: No acute intracranial hemorrhage, no evidence of acute territorial infarction or other acute intracranial disease process. ACT 112: Negative or not required by law. Electronically signed by: Gordy Maharaj M.D. 04/23/2024 7:51 AM Medications Administered Lurasidone HCl (Lurasidone Hcl 20 Mg Tab) 120 mg PO DAILY NIKOLE Stop: 05/23/24 09:44 Last Admin: 04/23/24 10:23 Dose: 120 mg Documented By: ROSEANNA Discontinued Medications Ceftriaxone Sodium (Rocephin) 2,000 mg in 50 mls @ 100 mls/hr IV NOW STA Stop: 04/23/24 09:10 Last Infusion: 04/23/24 09:36 Dose: Infused Documented By: Admin: 04/23/24 09:01 Dose: 100 mls/hr Documented By: ROSEANNA Lorazepam (Lorazepam 0.5 Mg Tab) 0.5 mg PO NOW STA Stop: 04/23/24 09:38 Last Admin: 04/23/24 10:23 Dose: 0.5 mg Documented By: ROSEANNA Supervising Physician Co-Signing Physician Notes Patient was seen and examined independently at bedside. Chart reviewed. Case discussed with Peyton ROSS and agree with the documentation above. In summary, this is a 69 year old female with paranoid schizophrenia who presents with worsening paranoid symptoms. Complains of hallucinations and nightmares, currently none. Labs reviewed. UA suggestive of UTI and on empiric rocephin. Consult psychiatry. Follow urine clx results. On exam, sitting comfortably in bed, AAO, chest clear, heart sounds normal, abd benign, no edema, conversing well, calm and cooperative. Rest as per the note above. (3) Leukocytopenia Leukopenia type: unspecified Qualified Code(s): D72.819 - Decreased white blood cell count, unspecified
[2024-04-23] MEDS ORDERED: ACETAMINOPHEN 325 MG TAB PO PRN (13:42)
[2024-04-23] MEDS ORDERED: guaiFENesin/DEXTROM SYRUP 100MG/10MG 5ML UDC PO PRN (13:42)
[2024-04-23] MEDS ORDERED: SENNA 8.6 MG TAB PO PRN (13:42)
[2024-04-23] MEDS ORDERED: ARTIFICIAL TEARS OP PRN (13:54)
[2024-04-23] MEDS ORDERED: DOCUSATE SODIUM 100 MG CAP PO PRN (13:55)
[2024-04-23] MEDS: PERPHENAZINE 4 MG TAB PO SCH (20:06)
[2024-04-23] MEDS: LORazepam 0.5 MG TAB PO SCH (20:06)
[2024-04-24 07:20] LABS: Hematocrit (blood only) 34.9 % (37.0-47.0); Hemoglobin 12.1 g/dl (12.0-16.0); Mean Corpuscular Hemoglobin 30.3 pg (25.0-34.0); Mean Corpuscular Hgb Conc 34.7 g/dL (32.0-36.0); Mean Corpuscular Volume 87.3 fL (80.0-100.0); Mean Platelet Volume 9.1 fL (9.4-12.4); Platelet Count 182 K/uL (130-400); RDW Coefficient of Variation 12.3 % (11.5-14.5); RDW Standard Deviation 39.5 fL (36.4-46.3); White Blood Count 1.66 K/ul (4.8-10.8)
[2024-04-24 07:41] LABS: RBC Morphology Unremarkable
[2024-04-24 07:44] LABS: BUN Creatinine Ratio 17.2 (10-20); Calcium 8.6 mg/dl (8.6-10.3); Creatinine Clr Calc Pharmacy 64.8 ml/min; Est GFR (African American) 78.2 ml/min; Est GFR (Non-African American) 67.5 ml/min; Lymphocytes # (auto) 0.85 K/uL (1.20-3.40); Lymphocytes % (auto) 51.2 %; Monocytes # (auto) 0.18 K/uL (0.11-0.59); Monocytes % (auto) 10.8 %; Neutrophils # (auto) 0.63 K/uL (1.40-6.50); Potassium 4.1 mmol/L (3.5-5.1)
[2024-04-24] MEDS: FLUTICASONE PROPIONATE NA SPR 16 GM BTL NAE SCH (08:12)
[2024-04-24] MEDS: VIBEGRON 75 MG TAB PO SCH (08:13)
[2024-04-24] MEDS: VITAMIN B COMPLEX TAB PO SCH (08:13)
[2024-04-24] MEDS: FLUoxetine HCL 20 MG CAP PO SCH (08:14)
[2024-04-24] MEDS: cefTRIAXone SODIUM 2,000 MG/50 ML BAG IV SCH (08:14)
[2024-04-24] MEDS: CHOLECALCIFEROL 25 MCG (1000 UNITS) TAB PO SCH (08:14)
[2024-04-24] MEDS: ENOXAPARIN INJ 40 MG/0.4 ML SYR SQ SCH (08:14)
[2024-04-24] MEDS: DOCUSATE SODIUM 100 MG CAP PO SCH (08:14)
--- NOTE | 2024-04-24 13:54 | Psychiatric Consultation ---
Date of Consultation April 24, 2024 Impression / Recommendations Impression Diagnostically consistent with schizophrenia and possible increased paranoia/agitation and delusions in setting of UTI vs worsening agitation from recent nightmares. Today certainly with improved thought organization and less paranoia and delusions compared with reports from yesterday; such a fairly dramatic change suggestive of delirium-type presentation that is responding well to antibiotics. Expresses regret for recent aggressive behaviors at [facility] and no longer voicing paranoia about the staff there trying to harm her. If nightmares continue could consider addition of prazosin, will hold off for now given clinical improvement so far today. Agree with psychiatric medications as ordered-Trilafon, Latuda, Prozac and Ativan. Likely can return to [facility] if presentation today continues with less paranoia and improved thought organization. Overall, I spent a total of 60 minutes with this case including review of chart records, review of labwork, review of EKG QTc, direct evaluation of the patient at bedside, counseling the patient, discussion of the patient with the hospitalist provider, discussion with the psychiatric liason during clinical rounds and documentation in the electronic health record. (1) Chronic paranoid schizophrenia: (2) Acute UTI (urinary tract infection): Plan -Continue to monitor response to UTI treatment -Continue psychiatric medications as ordered -Disposition options to depend on clinical course Psych History Identifying Data 69 year old woman who lives at [facility] personal alf with a history of schizophrenia, chronic leukopenia from psychiatric medication with multiple past psychiatric hospitalizations, including at the [facility], history of aggression admitted medically for UTI and worsened paranoia. Psychiatry consulted for worsening paranoia. Chief Complaint "I had a breakdown yesterday morning". History of Present Illness Nury presented from [facility] for increased paranoia, visual hallucinations of objects and people, and combative with staff over 48 hour period reporting concerns that staff were members of the drug cartel and giving her cocaine to cause her to have nightmares. During medical assessment in the ED was found to have a possible UTI for which antibiotics were started. She was seen yesterday afternoon by psych liason and was quite disorganized at that time, see note below. Today she is fully oriented and notes some lessening of paranoia. Pleasant, watching [employer] on TV and talks about shopping too much in the past from watching this, reality-based about products being sold which she references appropriately. Expresses regret for her recent behaviors noting that she's been having bad nightmares and had two very vivid ones over three days prior to admission. Melvin ng one dream she thought someone was talking about injecting her with cocaine and the other was a distressing dream about a puppy who was dying and she could not safe. Following these nightmares she reports: "I was mad about the dreams and it had built up and I needed to vent. I was angry and used angry words at staff and I really regret that". Reports she experiences two main auditory hallucinations, one of a landrum woman who "wants me to have sex, I don't want to do that, I'm celibate" and another male voice, a "conservative Orthodoxy society editor" who references bahai themes. She denies any command hallucinations, nor SI, nor HI. Overall less convinced now that [facility] did anything to her to cause the nightmares since she also had a nightmare at the hospital last night which has helped her to reality-test this. Today wonders if staff at [facility] may actually be two of her most favorite book authors, thinks they didn't deny being these authors because she found the idea comforting and she knows the staff want to take good care of her and for her to feel comfortable. She likes her current psychiatric medications, denies any side effects. Addition history per psych liason note from yesterday, 04/23/2024: "Met with patient for psychiatric consult and initial liaison assessment. Patient resting in bed, she is pleasant and cooperative. Patient has a known history of schizophrenia and known to psychiatric team. Patient presents from [facility] with increased irritability/combative behaviors. It is difficult to gather information d/t disorganized thoughts, tangential speech with flight of ideas. She reports visual and auditory hallucinations of a "young woman, I think she's young and she sounds landrum. I don't know how that is but she just does". She also hears a voice of a male society editor that she once knew from "the [employer]". Patient reports "I'm on a journey of acceptance and it's beautiful. I accepted that I'm landrum, I'm a lesbian but have been celibate. But I have masturbated, probably because I was exposed to pornography at a young age. The young male doctor I seen today, was beautiful because he said the word acceptance. The blonde girl is beautiful and she said accept". Patient also believes that several staff members at [facility] are "hiding their identity... It doesn't bother me. I figured out who they are and they know that"; she believes one female staff is a famous Setswana mortgage underwriter. Patient mentioned several others that were hiding their identity. Patient mentioned having nightmares that are vivid and unpleasant. She believes that she is being given crack cocaine and staff are involved in a drug ring. She questioned if she could contact the police, was able to be redirected. Patient needed frequent redirection to answer question at hand. She is A&Ox4, knows current President. Patient reports compliance with prescribed psychotropic medications. Patient has paranoia, hallucinations and delusional thoughts at baseline. Appears last psych admission was in 2020 @ [facility]. She see's a psych provider at [facility] psych clinic, CAROL Clark. She has a BCM through [facility], [facility]. She reports having a brother (Alvin) and sister (Eunice) that she has contact with. Patient signed SANDRA for [facility]. Liaison to gather collateral." Allergies Allergy/AdvReac Type Severity Reaction Status Date / Time animal dander Allergy Unknown Unknown Unverified 04/23/24 09:01 Home Medications Medication Instructions Recorded Confirmed Type acetaminophen 325 mg tablet 650 mg PO Q6H PRN Pain 12/15/20 04/23/24 History cholecalciferol (vitamin D3) 25 25 mcg PO DAILY 12/15/20 04/23/24 History mcg (1,000 unit) tablet (Vitamin D3) perphenazine 16 mg tablet 32 mg PO BID 12/15/20 04/23/24 History sennosides 8.6 mg tablet (senna) 8.6 mg PO BID PRN Constipation 12/15/20 04/23/24 History vitamin B complex 1 tab PO DAILY 12/15/20 04/23/24 History carbamide peroxide 6.5 % ear drops 1 drp otic (ear) UD 03/19/24 04/23/24 History (Debrox) carboxymethylcellulose sodium 1 % 1 drp ophthalmic (eye) TID PRN Dry 03/19/24 04/23/24 History eye drops (Artificial Tears Eye(S) (carboxymethylcellulose)) dextromethorphan-guaifenesin 10 10 ml PO Q4H PRN Cough 03/19/24 04/23/24 History mg-100 mg/5 mL oral syrup docusate sodium 100 mg capsule 100 mg PO QAM 03/19/24 04/23/24 History fluoxetine 40 mg capsule 40 mg PO DAILY 03/19/24 04/23/24 History mirabegron 50 mg tablet,extended 50 mg PO DAILY 03/19/24 04/23/24 History release 24 hr (Myrbetriq) triamcinolone acetonide 55 mcg 2 spray intranasal DAILY 03/19/24 04/23/24 History nasal spray aerosol (Nasacort Allergy) lorazepam 0.5 mg tablet 0.5 mg PO BID ANXIETY 04/23/24 04/23/24 History lurasidone 120 mg tablet 120 mg PO DAILY 04/23/24 04/23/24 History Patient History Medical History Grade II diastolic dysfunction Allergic rhinitis Atypical lobular hyperplasia (ALH) of breast Complex sclerosing lesion of breast Hearing loss Vitamin D deficiency Surgical History History of foot surgery History of breast lump/mass excision H/O breast biopsy Family History Mother Breast cancer Social History Smoking Status: Never smoker Do You Dip or Chew Tobacco: No; Hx Alcohol Use: No Hx Substance Use: No Preferred Language: Setswana Communication Ability: Effective Visual Impairment: No Limitations Work Over Rig Operator Required: No Beliefs That Will Affect Care: None marital status: Single Current Living Situation: Personal Care Facility Current Living Situation Comment: Assisted living current occupational status: disabled Other Information That Helps Us Care for You: No Feels Safe at Home: No Is there a partner from a previous relationship who is making you feel unsafe now?: No Any Concerns about Your Family Situation: Yes Would You Like to Speak to Someone About Your Situation: Yes Safety Concerns: Afraid for Self Assistive Devices: Glasses Physical Exam Psychiatric: Orientation: alert and oriented x 3 Apperance: appropriately dressed and appropriately groomed Eye Contact: good eye contact Motor Behavior: no abnormal motor movements Speech: normal rate/rhythm/volume of speech Affect: euthymic affect Mood: no depressed mood, no anxious mood and no irritable mood Thought Process: + circumstantial thought process Thought Content: + paranoid and + delusions Suicidal Thoughts: denies suicidal thoughts Homicidal Thoughts: denies homicidal thoughts Hallucinations: + auditory hallucinations (two voices, chronic); no visual hallucinations Cognition: recent memory grossly intact, remote memory grossly intact, attention grossly intact and language grossly intact Estimated Intelligence: consistent with education level Insight: + limited insight Judgment: + limited judgement Vital Signs (Past 24 Hours): Last Vital Signs Temp 36.8 C 04/24/24 07:07 Pulse 53 L 04/24/24 07:07 Resp 16 04/24/24 07:07 BP 145/71 H 04/24/24 07:07 Pulse Ox 98 04/24/24 07:07 O2 Del Method Room Air 04/24/24 07:07 Results & Data (PSY) Medications Administered Docusate Sodium (Docusate Sodium 100 Mg Cap) 100 mg PO QAM [facility] Stop: 05/24/24 08:59 Last Admin: 04/24/24 08:14 Dose: 100 mg Documented By: JULY Enoxaparin Sodium (Enoxaparin Inj 40 Mg/0.4 Ml Syr) 40 mg SQ QAM [facility] Stop: 05/24/24 08:59 Last Admin: 04/24/24 08:14 Dose: 40 mg Documented By: JULY Fluoxetine HCl (Fluoxetine Hcl 20 Mg Cap) 40 mg PO DAILY [facility] Stop: 05/24/24 08:59 Last Admin: 04/24/24 08:14 Dose: 40 mg Documented By: JULY Fluticasone Propionate (Fluticasone Propionate Na Spr 16 Gm Btl) 2 sprays GUILHERME DAILY [facility]; Protocol Stop: 05/24/24 08:59 Last Admin: 04/24/24 08:12 Dose: 2 sprays Documented By: JULY Ceftriaxone Sodium (Rocephin) 2,000 mg in 50 mls @ 100 mls/hr IV Q24H [facility] Stop: 04/29/24 08:59 Last Infusion: 04/24/24 09:06 Dose: Infused Documented By: Admin: 04/24/24 08:14 Dose: 100 mls/hr Documented By: JULY Lorazepam (Lorazepam 0.5 Mg Tab) 0.5 mg PO BID [facility] Stop: 05/23/24 20:59 Last Admin: 04/24/24 08:13 Dose: 0.5 mg Documented By: Admin: 04/23/24 20:06 Dose: 0.5 mg Documented By: GAYATHRI Lurasidone HCl (Lurasidone Hcl 20 Mg Tab) 120 mg PO DAILY [facility] Stop: 05/23/24 09:44 Last Admin: 04/24/24 08:13 Dose: 120 mg Documented By: Admin: 04/23/24 10:23 Dose: 120 mg Documented By: ROSEANNA Perphenazine (Perphenazine 4 Mg Tab) 32 mg PO BID [facility] Stop: 05/23/24 20:59 Last Admin: 04/24/24 08:13 Dose: 32 mg Documented By: Admin: 04/23/24 20:06 Dose: 32 mg Documented By: GAYATHRI Vibegron (Vibegron 75 Mg Tab) 75 mg PO DAILY [facility] Stop: 05/24/24 08:59 Last Admin: 04/24/24 08:13 Dose: 75 mg Documented By: JULY Vitamin B Complex (Vitamin B Complex Tab) 1 tab PO DAILY [facility] Stop: 05/24/24 08:59 Last Admin: 04/24/24 08:13 Dose: 1 tab Documented By: JULY Vitamin D (Cholecalciferol 25 Mcg (1000 Units) Tab) 25 mcg PO DAILY [facility] Stop: 05/24/24 08:59 Last Admin: 04/24/24 08:14 Dose: 25 mcg Documented By: JULY Coding Level of Care Code 52034 IN/OBS CONSULT LVL 4,60M Diagnoses Chronic paranoid schizophrenia F20.0 Acute UTI (urinary tract infection) N39.0
--- NOTE | 2024-04-24 15:24 | Hospitalist Progress Note ---
Date of Service April 24, 2024 Assessment & Plan (1) Acute paranoia: Plan: This is a 69 y/o female with chronic paranoid schizophrenia, chronic leukopenia, and other history as outlined below who was brought to the ED today via EMS due to increasing paranoia, particularly over the last 48 hours. Work-up in the ED was essentially negative other than UA showing leukocytes, no bacteria. Urine tox screen, respiratory panel, CT head were all negative. Pt has chronic leukopenia due to her anti-psychotics for which she has seen hematology in the past. Due to her worsening paranoia, which has resulted in confrontations with the staff at [facility], she was sent to the ED and the facility does not feel equipped to have her back at this time per EMS report. - Admit to med surg - Consult psychiatry for recommendations - pt reports following with outpatient psychiatry, CAROL Clark, regularly and taking medications as prescribed - Dr. Garrison of Psychiatry communicated that she feels sx consistent with schizophrenia likely exacerbated by recent nightmares, clinically improving and to continue current regimen - Continue outpatient regimen of Trilafon, latuda, prozac and ativan, consider prazosin if nightmares continue but will monitor for now - no signs of infectious etiology- d/c antibiotic (2) Chronic paranoid schizophrenia: Plan: Chronic - see plan for #1 (3) Leukocytopenia: Plan: Chronic - 2/2 to antipsychotics follows heme/onc (4) Abnormal urinalysis: Plan: multiple organisms 2/2 skin reynaldo no active infection Plan Pt seen and reviewed with collaborating physician, Dr. Deleon. Plan of care discussed and as outlined above. Code Status: Full code DVT Prophylaxis: Lovenox Dispo: med surg, pt can return to [facility] once stable, if sx continue to improve suspect discharge back over the weekend if psychiatry agrees A total of 45 minutes was spent coordinating, documenting, and providing care for this patient excluding time spent in the performance of separately billed services. This included personally viewing all current laboratories and imaging studies, medication reconciliation, outpatient chart review, and discussion with specialists. Pt was seen in collaboration with Dr. Deleon Admission and Anticipated Discharge Date Admission Date: April 23, 2024 Supervising Physician Co-Signing Physician Notes Patient was seen and examined independently at bedside. Chart reviewed. Case discussed with Elzbieta ROSS and agree with the documentation above. In summary, this is a 69 year old female with paranoid schizophrenia who presents with worsening paranoid symptoms. Complains of hallucinations and nightmares, curre ntly none. Labs reviewed. UA suggestive of UTI and was on empiric rocephin, Cx came back contaminant, will monitor off antibiotic. Psychiatry evaled, appreciate recs. On exam, sitting comfortably in bed, AAO, chest clear, heart sounds normal, abd benign, no edema, conversing well, calm and cooperative. Rest as per the note above. Subjective Patient was seen and examined in room 315. F/U Paranoia. She reports vivid dream last evening but she did sleep from 12-7. She feels dream was not as vivid as day before. She denies f/c/s, chest pain, sob, n/v/d. She offers no c/o pain. She currently denies any paranoia. Review of Systems Review of Systems: All systems reviewed & are unremarkable except as noted in HPI & below Physical Exam Physical Exam: Gen: WD/WN, NAD, A&O x3 HEENT: Normocephalic, atraumatic, conjunctivae moist, sclerae anicteric, mucous membranes moist. Lung: Clear to Auscultation bilaterally, no wheezes/rales/rhonchi Heart: Regular rate, regular rhythm, no murmurs, rubs, or gallops Abdomen: Soft, NT, ND +BS x 4 Extremities: No edema Skin: Warm, no rash, negative turgor. Results & Data Results & Data Vital Signs (Past 12 Hours) Vital Signs Temp Pulse Resp BP Pulse Ox O2 Del Method 04/24/24 07:07 36.8 C 53 L 16 145/71 H 98 Room Air Laboratory Results Short CBC 04/24/24 Range/Units 06:48 WBC 1.66 L (4.8-10.8) K/ul Hgb 12.1 (12.0-16.0) g/dl Hct 34.9 L (37.0-47.0) % Plt Count 182 (130-400) K/uL BMP 04/24/24 06:48 Sodium 142 Potassium 4.1 Chloride 109 H Carbon Dioxide 28 BUN 15 Creatinine 0.87 Glucose 106 H Calcium 8.6 I have independently reviewed and interpreted patient's a.m. labs including cbc, bmp. Urine culture reviewed and showing mixed reynaldo, no acute infection. Medications Administered Current Inpatient Medications Acetaminophen (Acetaminophen 325 Mg Tab) 650 mg PO Q4H PRN PRN Reason: pain/fever Stop: 05/23/24 13:41 Artificial Tears (Artificial Tears) 1 drops OP TID PRN PRN Reason: Dry Eye(S) Stop: 05/23/24 13:53 Docusate Sodium (Docusate Sodium 100 Mg Cap) 100 mg PO QAM [facility] Stop: 05/24/24 08:59 Last Admin: 04/24/24 08:14 Dose: 100 mg Docusate Sodium (Docusate Sodium 100 Mg Cap) 100 mg PO QPM PRN PRN Reason: CONSTIPATION Stop: 05/23/24 13:54 Enoxaparin Sodium (Enoxaparin Inj 40 Mg/0.4 Ml Syr) 40 mg SQ QAM [facility] Stop: 05/24/24 08:59 Last Admin: 04/24/24 08:14 Dose: 40 mg Fluoxetine HCl (Fluoxetine Hcl 20 Mg Cap) 40 mg PO DAILY [facility] Stop: 05/24/24 08:59 Last Admin: 04/24/24 08:14 Dose: 40 mg Fluticasone Propionate (Fluticasone Propionate Na Spr 16 Gm Btl) 2 sprays GUILHERME DAILY [facility]; Protocol Stop: 05/24/24 08:59 Last Admin: 04/24/24 08:12 Dose: 2 sprays Guaifenesin/Dextromethorphan (Guaifenesin/Dextrom Syrup 100mg/10mg 5ml Udc) 10 ml PO Q4H PRN PRN Reason: Cough Stop: 05/23/24 13:41 Ceftriaxone Sodium (Rocephin) 2,000 mg in 50 mls @ 100 mls/hr IV Q24H [facility] Stop: 04/29/24 08:59 Last Infusion: 04/24/24 09:06 Dose: Infused Lorazepam (Lorazepam 0.5 Mg Tab) 0.5 mg PO BID [facility] Stop: 05/23/24 20:59 Last Admin: 04/24/24 08:13 Dose: 0.5 mg Lurasidone HCl (Lurasidone Hcl 20 Mg Tab) 120 mg PO DAILY [facility] Stop: 05/23/24 09:44 Last Admin: 04/24/24 08:13 Dose: 120 mg Perphenazine (Perphenazine 4 Mg Tab) 32 mg PO BID [facility] Stop: 05/23/24 20:59 Last Admin: 04/24/24 08:13 Dose: 32 mg Sennosides (Senna 8.6 Mg Tab) 8.6 mg PO BID PRN PRN Reason: Constipation Stop: 05/23/24 13:41 Vibegron (Vibegron 75 Mg Tab) 75 mg PO DAILY [facility] Stop: 05/24/24 08:59 Last Admin: 04/24/24 08:13 Dose: 75 mg Vitamin B Complex (Vitamin B Complex Tab) 1 tab PO DAILY [facility] Stop: 05/24/24 08:59 Last Admin: 04/24/24 08:13 Dose: 1 tab Vitamin D (Cholecalciferol 25 Mcg (1000 Units) Tab) 25 mcg PO DAILY [facility] Stop: 05/24/24 08:59 Last Admin: 04/24/24 08:14 Dose: 25 mcg (3) Leukocytopenia Leukopenia type: unspecified Qualified Code(s): D72.819 - Decreased white blood cell count, unspecified
[2024-04-25 14:54] VITALS: RESP 18
--- NOTE | 2024-04-25 15:15 | Hospitalist Progress Note ---
Date of Service April 25, 2024 Assessment & Plan (1) Acute paranoia: Plan: This is a 69 y/o female with chronic paranoid schizophrenia, chronic leukopenia, and other history as outlined below who was brought to the ED today via EMS due to increasing paranoia, particularly over the last 48 hours. Work-up in the ED was essentially negative other than UA showing leukocytes, no bacteria. Urine tox screen, respiratory panel, CT head were all negative. Pt has chronic leukopenia due to her anti-psychotics for which she has seen hematology in the past. Due to her worsening paranoia, which has resulted in confrontations with the staff at [facility], she was sent to the ED and the facility does not feel equipped to have her back at this time per EMS report. - Psychiatry evaled inpatient - c/w current meds. Pt reports following with outpatient psychiatry, CAROL Clark, regularly and taking medications as prescribed - Psychiatry feels sx consistent with schizophrenia likely exacerbated by recent nightmares, clinically improving and to continue current regimen - Continue outpatient regimen of Trilafon, latuda, prozac and ativan, consider prazosin if nightmares continue but will monitor for now - no signs of infectious etiology- monitor off antibiotic (2) Chronic paranoid schizophrenia: Plan: Chronic - see plan for #1 (3) Leukocytopenia: Plan: Chronic - 2/2 to antipsychotics follows heme/onc (4) Abnormal urinalysis: Plan: multiple organisms 2/2 skin reynaldo no active infection Plan Code Status: Full code DVT Prophylaxis: Lovenox Dispo: med surg, pt can return to [facility] , aware, plan for [facility]. Admission and Anticipated Discharge Date Admission Date: April 23, 2024 Subjective Patient was seen and examined in room 315. F/U Paranoia. She reports no acute issues. She denies si/hi. She denies f/c/s, chest pain, sob, n/v/d. She offers no c/o pain. She currently denies any paranoia. Physical Exam Physical Exam: Gen: WD/WN, NAD, A&O x3 HEENT: Normocephalic, atraumatic, conjunctivae moist, sclerae anicteric, mucous membranes moist. Lung: Clear to Auscultation bilaterally, no wheezes/rales/rhonchi Heart: Regular rate, regular rhythm, no murmurs, rubs, or gallops Abdomen: Soft, NT, ND +BS x 4 Extremities: No edema Skin: Warm, no rash, negative turgor. Results & Data Results & Data Vital Signs (Past 12 Hours) Vital Signs Temp Pulse Resp BP Pulse Ox O2 Del Method 04/25/24 14:51 36.4 C L 71 18 133/84 91 Room Air 04/25/24 07:23 36.8 C 50 L 16 137/56 L 98 Room Air (3) Leukocytopenia Leukopenia type: unspecified Qualified Code(s): D72.819 - Decreased white blood cell count, unspecified
[2024-04-26 07:30] VITALS: BP 145/82; PULSE 64; TEMP 98.4; O2SAT 98
--- NOTE | 2024-04-26 09:56 | Discharge Summary ---
Date of Service April 26, 2024 Admission HPI Per Admitting Provider This is a 69 y/o female with chronic paranoid schizophrenia, chronic leukopenia, and other history as outlined below who was brought to the ED today via EMS due to increasing paranoia, particularly over the last 48 hours. Pt resides at [facility] and reports that she has been there for six years. She reports that the first four years were good, but that over the last couple of years, "it's gone downhill because one of the staff has a crush on me." Her most recent concern is that the staff have been giving her "psychedelics" and "slipping me crack cocaine to punish me with nightmares." She reports that she has been taking her chronic medicines as prescribed even though she's concerned that staff is "poisoning" it. She tells me that it may be best if she "disappears from there for a while" in reference to her concerns about the [facility]. She has no specific physical complaints at this time. She reports being "out of shape" so she has not been exercising like she usually does, feels mildly short of breath with exertion but states this is not new. Her appetite is good. She has had issues with constipation previously but reports that this has resolved. Denies chest pain, N/V, dysuria, PARSON, dizziness, peripheral edema. Pt's outpatient Epic records and prior [facility] records were extensively reviewed to assist with the history. Admission Exam Per Admitting Provider General: awake, alert, NAD, cooperative, slightly disheveled HEENT: no scleral icterus, moist oral mucosa Neck: supple, trachea midline Heart: RRR, No M/G/R Lungs: CTA bilaterally, no W/R/R Abdomen: soft, NT, +BS Extremities: no pedal edema, distal pulses intact and equal Skin: no jaundice Neurologic: no focal deficits, moving all extremities Psychiatric: +paranoid delusions, +limited insight, +limited judgment, +pleasant affect Principal Diagnosis acute paranoia Discharge Exam Gen: WD/WN, NAD, A&O x3 HEENT: Normocephalic, atraumatic, conjunctivae moist, sclerae anicteric, mucous membranes moist. Lung: Clear to Auscultation bilaterally, no wheezes/rales/rhonchi Heart: Regular rate, regular rhythm, no murmurs, rubs, or gallops Abdomen: Soft, NT, ND +BS x 4 Extremities: No edema Skin: Warm, no rash, negative turgor. Discharge Data Allergies Allergy/AdvReac Type Severity Reaction Status Date / Time animal dander Allergy Unknown Unknown Unverified 04/23/24 09:01 Consultations 04/23/24 10:57 ED Decision to Admit Stat 04/23/24 13:42 Consult Psychiatry Routine Ordered Studies 04/23/24 07:18 CT head/brain wo con Stat Hospital Course (1) Acute paranoia: This is a 69 y/o female with chronic paranoid schizophrenia, chronic leukopenia, and other history as outlined below who was brought to the ED via EMS due to increasing paranoia, particularly over the last 48 hours [employer]. Work-up in the ED was essentially negative other than UA showing leukocytes, no bacteria. Urine tox screen, respiratory panel, CT head were all negative. Pt has chronic leukopenia due to her anti-psychotics for which she has seen hematology in the past. Due to her worsening paranoia, which has resulted in confrontations with the staff at [facility], she was sent to the ED. She was managed for the following: - Psychiatry evaled inpatient - c/w current meds. Pt reports following with outpatient psychiatry, CAROL Clark, regularly and taking medications as prescribed - Psychiatry feels sx consistent with schizophrenia likely exacerbated by recent nightmares, clinically improving and to continue current regimen - Continue outpatient regimen of Trilafon, latuda, prozac and ativan, consider prazosin if nightmares continue but will monitor for now - pt reports improving/less nightmares. - no signs of infectious etiology- monitor off antibiotic (2) Chronic paranoid schizophrenia: Chronic - see plan for #1 (3) Leukocytopenia: Chronic - 2/2 to antipsychotics follows heme/onc (4) Abnormal urinalysis: multiple organisms 2/2 skin reynaldo no active infection Plan Code Status: Full code DVT Prophylaxis: Lovenox Patient is being discharged w/ following instructions at the point of discharge: Follow-up with your primary care physician within a week time and likely you will need labs CBC/CMP/magnesium/phosphorus. You were evaluated for acute paranoia, psychiatry evaluated you while inpatient. Your medication has been continued as prior. Continue to follow-up with outpatient psychiatry as prior. Take your medications as prescribed. Please make sure that you are able to get your medications today by calling your pharmacy before you leave the hospital so that your treatment continuity is not broken. Home Health Attestation I certify that this patient is under my care and that I, or a physicians early childhood assistant working with me, had a face to-face encounter that meets the home health [id number] encounter requirements with this patient. The encounter with the patient was in whole, or in part, for the following medical condition, which is the primary reason for home health care (list medi johnnie condition): I certify that, based on my findings, the following services are medically necessary home health services: My clinical findings support the need for the above services because: Further, I certify that my clinical findings support that this patient is homebound (i.e. absences from home require considerable and taxing effort and are for medical reasons or [facility] services or infrequently or of short duration when for other reasons) because: Certification for Home Health Services: Based on the above findings, I certify that this patient is confined to the home and needs intermittent assisted care, physical therapy and/or speech ther apy or continues to need occupational therapy. The patient is under my care, and I have initiated the establishment of the plan of care. This patient will be followed by a physician who will periodically review the plan of care. Total Time Total Time Spent Total Time Spent (In Minutes): 45 Discharge Plan Discharge Items Patient Disposition: Personal Halfway Reason For Visit: WORSENING PARANOIA Discharge Diagnosis: Acute paranoia Activity: Resume your previous activity Non-emergency contact: Primary Care Provider Call non-emergency contact if: you have any medication questions Follow-up/Referrals: Andrea Vale [Primary Care Provider] - Diet: Regular Addtl Attending Provider Instructions: Follow-up with your primary care physician within a week time and likely you will need labs CBC/CMP/magnesium/phosphorus. You were evaluated for acute paranoia, psychiatry evaluated you while inpatient. Your medication has been continued as prior. Continue to follow-up with outpatient psychiatry as prior. Take your medications as prescribed. Please make sure that you are able to get your medications today by calling your pharmacy before you leave the hospital so that your treatment continuity is not broken. Pending Studies at Discharge: No Stand-Alone Forms: My [facility], Smoking Cessation Skilled Items Patient informed of condition?: Yes DNR: No Discharge Level of Care: Other Communicable Disease: No Discharge Prognosis: Stable Lines: None Urinary Catheter: No Medications and DC Order Prescriptions: Continued sennosides [senna] 8.6 mg Tablet 8.6 mg PO BID PRN (Reason: Constipation) acetaminophen 325 mg Tablet 650 mg PO Q6H PRN (Reason: Pain) vitamin B complex Tablet Extended Release 1 tab PO DAILY perphenazine 16 mg tablet 32 mg PO BID cholecalciferol (vitamin D3) [Vitamin D3] 25 mcg (1,000 unit) Tablet 25 mcg PO DAILY fluoxetine 40 mg capsule 40 mg PO DAILY dextromethorphan-guaifenesin 10-100 mg/5 mL Syrup 10 ml PO Q4H PRN (Reason: Cough) triamcinolone acetonide [Nasacort Allergy] 55 mcg Aerosol,[place] 2 spray INTRANASAL DAILY Rx Instructions: administer into each nostril Debrox 6.5 % Drops 1 drp otic (ear) UD Rx Instructions: Use as directed then irrigate with 180 mls of warm water to each ear docusate sodium 100 mg Capsule 100 mg PO QAM MDD 200mg/24hr Rx Instructions: May take additional 100mg in the evening if needed for constipation mirabegron [Myrbetriq] 50 mg tablet extended release 24 hr 50 mg PO DAILY Artificial Tears (cmc) 1 % Drops 1 drp OPHTHALMIC (EYE) TID PRN (Reason: Dry Eye(S)) lorazepam 0.5 mg tablet 0.5 mg PO BID lurasidone 120 mg tablet 120 mg PO DAILY Discharge Orders: Discharge Order (Routine); Ordered 04/26/24 Ordered By: Rashaun Deleon Admission Data Admit Date/Time: 04/23/24 11:39 Attending Provider: Rashaun Deleon Admit Provider: Anibal Berry Primary Care Provider: Andrea Vale Other Providers: Anibal Berry; Rimma Garrison; Tramaine Soares; Franc Ramírez Jr; Gema Hunt; Anna Pedraza; Ronald Juárez
== END 2024-04-26 11:44 | disposition home or self-care (01) | DRG 885 ==
LOC: ED 06:50 → SUATTDRO 11:39 → EDINP 11:39 → 3E 15:41